=== PATIENT | female | born 1950 | race Caucasian/White ===

== ENCOUNTER 2018-06-08 10:22 | Emergency (ER) | payer MEDICARE, OTHER, SELFPAY ==
[2018-06-08] VITALS (8 sets, daily range): BP systolic 118–134; BP diastolic 59–71; PULSE 61–79; RESP 12–17; TEMP 36.6; O2SAT 93–100
--- NOTE | 2018-06-08 10:44 | DI.RAD.S_ITS ---
PROCEDURE: XR CHEST 1V INDICATIONS: chest pain TECHNIQUE: One view of the chest was acquired. COMPARISON: [facility], CHEST 1 VIEW, 03/17/2016, 22:11. [facility], CHEST 2 VIEW, 09/08/2014, 21:29. [facility], CHEST 2 VIEW, 09/07/2014, 12:04. [facility], CHEST 1 VIEW, 04/21/2007, 20:05. FINDINGS: Surgical changes and devices: None. Lungs and pleura: No pleural effusions or pneumothorax. Bilateral perihilar reticular opacities are unchanged from prior exam. Mediastinum: Mediastinal contours appear normal. Heart size is normal. Bones and chest wall: No suspicious bony lesions. Overlying soft tissues appear unremarkable. IMPRESSION: No acute cardiopulmonary disease. Dictated by: Oliverio Bustamante M.D. on 06/08/2018 at 12:11 Approved by: Oliverio Bustamante M.D. on 06/08/2018 at 12:14
[2018-06-08 10:57] LABS: Add Manual Diff / Slide Review NO; Eosinophils Percent Auto 1.1 % (2-4); Hematocrit 40.8 % (36-46); Hemoglobin 13.7 g/dL (12.0-16.0); Mean Corpuscular HGB Conc 33.5 % (30-36); Mean Corpuscular Hemoglobin 33.4 PG (26-34); Mean Corpuscular Volume 99.7 fL (80-100); Monocytes Percent Auto 8.8 % (3-14); Neutrophils Absolute Auto 2800 /uL (3000-5900); Neutrophils Percent Auto 52.1 % (50-75); Platelet Count 320 X10^3/uL (150-400); Red Blood Cell Count 4.09 X10^6/uL (4.0-5.2); White Blood Cell Count 5.4 X10^3/uL (4.5-11.0)
[2018-06-08 11:07] LABS: Alanine Aminotransferase 43 IU/L (9-52); Albumin 4.1 g/dL (3.5-5.0); Albumin Globulin Ratio 1.4 (1.0-2.8); Alkaline Phosphatase 71 U/L (38-126); Aspartate Aminotransferase 44 IU/L (14-36); BUN Creatinine Ratio 21.7 (6-22); Bilirubin Total 0.4 mg/dL (0.2-1.3); Blood Urea Nitrogen 13 mg/dL (7-17); Calcium 9.6 mg/dL (8.4-10.2); Carbon Dioxide 33 mmol/L (22-32); Chloride 102 mmol/L (98-107); Creatine Kinase 91 U/L (30-135); Estimated Glomerular Filt Rate > 60.0 mL/min (>60); Globulin 2.9 g/dL (1.7-4.1); Glucose 94 mg/dL (80-110); HEMOLYSIS < 15 (0-50); Lipase 42 U/L (23-300); Potassium 4.2 mmol/L (3.4-5.1); Sodium 142 mmol/L (137-145)
[2018-06-08] MEDS: ACETAMINOPHEN 325 MG TABLET 650 MG PO (11:15)
[2018-06-08] MEDS: SODIUM CHLORIDE 0.9% 1,000 ML 150 ML IV (11:19)
[2018-06-08 11:20] LABS: Troponin I < 0.012 ng/mL (0.01-0.034)
--- NOTE | 2018-06-08 11:21 | DI.CT.S_ITS ---
PROCEDURE: CT ANGIO HEAD AND NECK INDICATIONS: headache, pain w/ neuro symptoms. Right arm numbness, weakness. TECHNIQUE: Pre-contrast 4.5 mm thick sections acquired from the foramen magnum to the vertex. After the administration of intravenous contrast, 1 mm thick sections acquired from the aortic arch through the [place]. Post-contrast 4.5 mm thick sections then re-acquired from the foramen magnum to the vertex. 3-dimensional qudnbsa-rwmeytjge-vdndelbklp (MIP) and/or volume rendering reformats were acquired of the central intracranial vasculature and neck separately. COMPARISON: [facility], CT, HEAD WITHOUT CONTRAST, 04/10/2013, 13:59. FINDINGS: Image quality: Excellent. BRAIN: CSF spaces: Ventricles are normal in size and shape. Basal cisterns are patent. No extra-axial fluid collections. Brain: No midline shift. No intracranial bleeds or masses. No acute infarct. Skull and face: Calvarium and facial bones appear intact, without suspicious lesions. Orbits appear normal. Sinuses: Sinuses and mastoids are clear. HEAD CT ANGIOGRAPHY: There is calcification of the bilateral cavernous internal carotid arteries. No dissection, occlusion, or stenosis of the intracranial arteries. NECK CT ANGIOGRAPHY: There is calcification of the bilateral carotid artery bifurcations. No dissection, occlusion, stenosis of the great arteries of the neck. Soft tissues: There is a 1.0 cm hypoattenuating nodule in the right thyroid lobe with internal calcification. Bones: Moderate multilevel degenerative changes of the cervical spine with straightening of the normal cervical lordosis. IMPRESSION: #1. No acute intracranial abnormality. #2. No dissection or occlusion of the great arteries of the neck or intracranial arteries identified. #3. Moderate multilevel degenerative changes of the cervical spine. #4. 1.0 cm right thyroid lobe nodule. Recommend followup outpatient thyroid ultrasound for further evaluation. Any quantitative measurements of stenosis were performed using NASCET criteria. Dictated by: Oliverio Bustamante M.D. 06/08/2018 at 13:12 Approved by: Oliverio Bustamante M.D. on 06/08/2018 at 13:27
--- NOTE | 2018-06-08 11:51 | ED_ITS ---
HPI - Chest Pain General Chief Complaint: Chest Pain Stated Complaint: jaw pain, right breast pain, blurry vision Time Seen by Provider: 06/08/18 10:27 Source: patient Mode of arrival: ambulatory Limitations: no limitations History of Present Illness HPI narrative: 68-year-old female presents to the emergency department with multiple symptoms and presents to emergency at the request of the provider at the walk-in clinic for further and more complete evaluation. On waking this morning at about 7:30 a.m. patient noticed a right-sided headache and some sensory change in the right side of her face. She states she may have a slight change in her right eye vision but certainly no visual field cuts, floaters or other. Additionally the patient has some right-sided chest pain which she attributes to her breast. She denies provocation, palliation or radiation of this pain in her breast. She states it does not feel like pleurisy which she has had in the past. Finally the patient has some numbness, tingling and weakness in her right upper extremity. She denies any recent injury or medication change. Related Data Home Medications Medication Instructions Recorded Confirmed Loratadine (Claritin) 10 mg PO Q AM #0 04/21/06/08/18 metronidazole 1 nelson TOPICAL #0 02/06/17 06/08/18 Previous Rx's Medication Instructions Recorded acyclovir 400 mg PO TID PRN #30 tab 10/01/17 levothyroxine [Synthroid] 150 mcg PO QAM #90 tab 11/07/17 nortriptyline 10 mg PO BID #180 cap 11/07/17 triamcinolone acetonide 1 nelson TOPICAL BID #15 gm 01/04/18 estradiol 1 mg tablet 1 mg PO QDAY #90 tab 04/16/18 hydrocodone 5 mg-acetaminophen 325 1 tab PO Q6HP PRN #30 tab 04/16/18 mg tablet pseudoephedrine ER 240 mg 240 mg PO DAILY PRN #90 tab 04/16/18 tablet,extended release 24 hr sulfasalazine 500 mg tablet 1,500 mg PO TID #810 tab 04/16/18 Allergies Allergy/AdvReac Type Severity Reaction Status Date / Time fentanyl Allergy Unknown HIVES Verified 06/08/18 10:06 clarithromycin [From BIAXIN] AdvReac Unknown DIAHRREA Verified 06/08/18 10:06 ketorolac AdvReac Unknown STOMACH Verified 06/08/18 10:06 BLEEDING Review of Systems Review of Systems All systems reviewed & are unremarkable except as noted in HPI and below Constitutional Denies chills, Denies fever(s), Denies lethargy and Reports weakness Eyes Denies change in vision, Denies eye discharge, Denies irritation, Denies loss of vision and Reports other visual disturbances ENT Ears, Nose, Mouth, and Throat: Denies change in voice, Denies neck pain and Denies sore throat Cardiovascular Reports chest pain, Denies irregular heart rhythm, Denies lightheadedness, Denies palpitations, Denies dyspnea, Denies dyspnea on exertion and Denies orthopnea Respiratory Denies cough, Denies dyspnea, Denies dyspnea on exertion and Denies wheezing Gastrointestinal Gastrointestinal: Denies abdominal pain, Denies change in bowel habits, Denies diarrhea, Denies nausea and Denies vomiting Genitourinary Denies hematuria, Denies flank pain, Denies urinary incontinence and Denies urinary urgency Musculoskeletal Denies neck pain and Reports tingling Integumentary/Breasts Denies pruritus, Denies erythema, Denies rash and Denies wounds Neurologic Denies confusion, Denies loss of vision, Reports tingling and Reports weakness Psychiatric Denies anxiety, Denies confusion, Denies depression, Denies homicidal ideation and Denies suicidal ideation Endocrine Denies palpitations Hematologic/Lymphatic Denies easy bruising Allergic/Immunologic Denies wheezing [facility] Medical History Ankle pain (Chronic ~2001) Chronic back pain (Chronic ~2012) GI bleeding (Chronic ~2006) Hearing deficit (Chronic ~1997) Herpes simplex virus (HSV) infection (Chronic ~1998) History of frequent headaches (Chronic ~1967) Hypothyroidism (Chronic ~2001) Rosacea (Chronic ~2012) Seasonal allergies (Chronic ~1999) Spinal stenosis (Chronic ~1989) Tinnitus (Chronic ~2007) Ulcerative colitis (Chronic ~1976) Urinary incontinence (Chronic ~2007) Abnormal Pap smear of cervix (Resolved) Acne (Resolved) Chickenpox (Resolved ~1954) Measles (Resolved ~1955) Migraines (Resolved) Mumps (Resolved ~1955) Surgical procedure planned (Resolved ~2009) Surgical History Status post surgical manipulation of ankle joint (Resolved ~2001) Status post surgical manipulation of ankle joint (Resolved ~2009) Anesthesia (Inactive) History of hip replacement (~2002) History of hip replacement (~2002) Status post arthroscopy (~1987) Status post hysterectomy (~1993) Status post rotator cuff repair (~2006) Status post tonsillectomy and adenoidectomy (~1966) Status post tubal ligation (~1983) Family History Brother Age: 64 Essential hypertension Father Heart disease Essential hypertension High cholesterol Grandmother Parkinson's disease Mother Essential hypertension Grandfather No problems noted. Grandfather No problems noted. Social History Smoking Status: Never smoker alcohol intake: current Exam Initial Vital Signs Initial Vital Signs: Vital Signs Temperature 97.8 F 06/08/18 10:38 Pulse Rate 79 06/08/18 10:38 Respiratory Rate 14 06/08/18 10:38 Blood Pressure 134/70 H 06/08/18 10:38 Pulse Oximetry 98 06/08/18 10:38 Const General: cooperative, well developed and in distress Nutritional Appearance: well nourished Orientation: alert, awake, oriented x3 and not confused [facility] Head: normocephalic and atraumatic Ears: external ears normal and TM's normal bilaterally Nose: external nose normal and No nasal discharge Face and sinus: sinuses nontender, face symmetric, no sinus tenderness and No dry mucous membranes Mouth: oral mucosae normal and moist mucous membranes Teeth and gingiva: dentition normal Throat: tonsils normal and uvula midline Eyes General: appearance normal, both eyes and all related structures Eyelids: eyelids normal Conjunctivae: conjunctivae normal Sclera: sclerae normal Pupils: PERRL EOM: EOM intact bilaterally Neck Neck: normal visual inspection, trachea midline, No lymphadenopathy, No midline deformity and No JVD Lymphatic: No lymphedema Chest Chest: normal inspection of the chest Resp Effort & Inspection: normal respiratory effort, able to speak in complete sentences, no respiratory distress and no use of accessory muscles Auscultation: clear to auscultation bilaterally, no rales, no rhonchi and no wheezes GI Inspection: non-distended Palpation: soft, no hepatosplenomegaly, No guarding, No pulsatile mass and No tender Auscultation: normal bowel sounds Back/Spine/Pelvis Back: No CVA tenderness Cervical Spine: cervical ROM normal and No pain with cervical ROM Thoracic/Lumbar Spine: thoracic and lumbar spine normal to inspection Skin General: no rashes or lesions noted, No jaundice and No petechiae Neuro General: alert, awake and oriented x3 Extrem General: full ROM, no clubbing, cyanosis or edema, no pedal edema and no calf tenderness Psych Appearance: well kempt Mental Status: mental status grossly normal Attitude: cooperative Thought Content: normal and suicidality Judgment: judgment good Scores HEART Score Heart Score history: Slightly Suspicious Heart Score EKG: Normal Heart Score Age: > or = 65 years old Heart Score risk factors: No known risk factors Heart Score troponin: < or = to normal limit Heart Score Total: 2 NIH Stroke Scale Level of Conciousness: Alert, keenly responsive Ask month/age: Answers both questions correctly. Open/close eyes, close hand: Performs both tasks correctly Best gaze horizontal: Normal Visual whitehead: No visual loss Facial palsy: Normal symetrical movement Left arm drift: No drift for full 10 sec Right arm drift: No drift for full 10 sec Left leg drift: No drift for full 10 sec Right leg drift: No drift for full 10 sec Limb ataxia: Absent Sensory on face/arms/legs: Mild to moderate sensory loss, can tell touch (R face , R arm. Both tingly) Best language: No aphasia, normal Dysarthria: Normal Extinction or inattention: No abnormality Total NIH Stroke scale score: 1 Course Orders Ordered: ED Orders 06/08/18 10:35 EKG-12 Lead Stat 06/08/18 10:40 Complete Blood Count AUTO DIFF Stat Comprehensive Metabolic Panel Stat Lipase Stat Troponin & CK Cardiac Panel Stat 06/08/18 10:44 XR chest 1V Stat 06/08/18 11:21 CT angio head and neck Stat 06/08/18 13:05 Troponin I Stat Discontinued Medications Acetaminophen (Tylenol) 650 mg PO NOW ONE Stop: 06/08/18 11:22 Last Admin: 06/08/18 11:15 Dose: 650 mg Sodium Chloride (Normal Saline 0.9%) 1,000 mls @ 150 mls/hr IV CONT TAVON Last Admin: 06/08/18 11:19 Dose: 150 mls/hr Vital Signs - 8 hr 06/08/18 10:38 06/08/18 11:08 06/08/18 12:06 Temperature 97.8 F Pulse Rate 79 74 62 Respiratory Rate 14 17 14 Blood Pressure 134/70 H Blood Pressure [Left Arm] 118/66 130/59 H Pulse Oximetry 98 100 93 06/08/18 12:37 06/08/18 13:21 06/08/18 13:39 Temperature Pulse Rate 61 77 76 Respiratory Rate 12 13 15 Blood Pressure Blood Pressure [Left Arm] 127/71 H 125/65 H 125/65 H Pulse Oximetry 97 96 96 06/08/18 14:10 06/08/18 14:34 Temperature Pulse Rate 78 75 Respiratory Rate 12 13 Blood Pressure 127/63 H Blood Pressure [Left Arm] 127/63 H Pulse Oximetry 97 96 MDM - Chest Pain Differential Diagnosis Likely stable angina, unstable angina pectoris, atypical chest pain, st elevation myocardial infarction, costochondritis, chest pain and biliary colic Medical Records Data Attestation: I reviewed the patient's medical records. Lab Data Attestation: I reviewed the patient's lab results. Result diagrams: 06/08/18 10:40 06/08/18 10:40 Lab Results 06/08/18 06/08/18 06/08/18 Range/Units 10:40 10:40 13:05 WBC 5.4 (4.5-11.0) X10^3/uL RBC 4.09 (4.0-5.2) X10^6/uL Hgb 13.7 (12.0-16.0) g/dL Hct 40.8 (36-46) % MCV 99.7 (80-100) fL MCH 33.4 (26-34) PG MCHC 33.5 (30-36) % RDW 13.0 (11.6-14.8) % Plt Count 320 (150-400) X10^3/uL Neut % (Auto) 52.1 (50-75) % Lymph % (Auto) 37.0 (25-40) % Eddy % (Auto) 8.8 (3-14) % Eos % (Auto) 1.1 L (2-4) % Baso % (Auto) 1.0 (0-2) % Neut # (Auto) 2800 L (5886-2482) /uL Sodium 142 (137-145) mmol/L Potassium 4.2 (3.4-5.1) mmol/L Chloride 102 (98-107) mmol/L Carbon Dioxide 33 H (22-32) mmol/L BUN 13 (7-17) mg/dL Creatinine 0.60 (0.52-1.04) mg/dL Estimated GFR > 60.0 (>60) mL/min BUN/Creatinine Ratio 21.7 (6-22) Glucose 94 (80-110) mg/dL Calcium 9.6 (8.4-10.2) mg/dL Total Bilirubin 0.4 (0.2-1.3) mg/dL AST 44 H (14-36) IU/L ALT 43 (9-52) IU/L Alkaline Phosphatase 71 (38-126) U/L Total Creatine Kinase 91 (30-135) U/L Troponin I < 0.012 < 0.012 (0.01-0.034) ng/mL Total Protein 7.0 (6.3-8.2) g/dL Albumin 4.1 (3.5-5.0) g/dL Globulin 2.9 (1.7-4.1) g/dL Albumin/Globulin Ratio 1.4 (1.0-2.8) Lipase 42 (23-300) U/L Imaging Data Head/Neck Angio: Radiologist's impression: PROCEDURE: CT ANGIO HEAD AND NECK INDICATIONS: headache, pain w/ neuro symptoms. Right arm numbness, weakness. TECHNIQUE: Pre-contrast 4.5 mm thick sections acquired from the foramen magnum to the vertex. After the administration of intravenous contrast, 1 mm thick sections acquired from the aortic arch through the [place] of [place]. Post-contrast 4.5 mm thick sections then re- acquired from the foramen magnum to the vertex. 3-dimensional maximum-intensity- projection (MIP) and/or volume rendering reformats were acquired of the central intracranial vasculature and neck separately. COMPARISON: [facility], CT, HEAD WITHOUT CONTRAST, 04/10/2013, 13:59. FINDINGS: Image quality: Excellent. BRAIN: CSF spaces: Ventricles are normal in size and shape. Basal cisterns are patent. No extra-axial fluid collections. Brain: No midline shift. No intracranial bleeds or masses. No acute infarct. Skull and face: Calvarium and facial bones appear intact, without suspicious lesions. Orbits appear normal. Sinuses: Sinuses and mastoids are clear. HEAD CT ANGIOGRAPHY: There is calcification of the bilateral cavernous internal carotid arteries. No dissection, occlusion, or stenosis of the intracranial arteries. NECK CT ANGIOGRAPHY: There is calcification of the bilateral carotid artery bifurcations. No dissection, occlusion, stenosis of the great arteries of the neck. Soft tissues: There is a 1.0 cm hypoattenuating nodule in the right thyroid lobe with internal calcification. Bones: Moderate multilevel degenerative changes of the cervical spine with straightening of the normal cervical lordosis. IMPRESSION: #1. No acute intracranial abnormality. #2. No dissection or occlusion of the great arteries of the neck or intracranial arteries identified. #3. Moderate multilevel degenerative changes of the cervical spine. #4. 1.0 cm right thyroid lobe nodule. Recommend followup outpatient thyroid ultrasound for further evaluation. Any quantitative measurements of stenosis were performed using NASCET criteria. Dictated by: Oliverio Bustamante M.D. 06/08/2018 at 13:12 Approved by: Oliverio Bustamante M.D. on 06/08/2018 at 13:27 ECG Data Attestation: I personally reviewed and interpreted this ECG as follows: Interpretation: NSR without ectopy or ischemia. RBBB consistent with old EKG from 2015, no change. MDM Narrative Medical decision making narrative: Patient has atypical and rather nondescript symptoms including neurologic symptoms as well as pain in a rather broad distribution. Stroke is considered as an etiology of her numbness and tingling but is unlikely in the setting of pain in her head along with chest pain. Cardiac ischemia considered as an etiology of her chest pain with radiation to right arm but thought less likely given normal EKG, labs, lack of other consistent symptoms, and the presence of headache with facial numbness. Presence of pain in the setting of neurologic symptoms raises the suspicion of a vascular abnormality such as dissection, hence the angiography Discharge Plan Departure Patient Disposition: Home, Self-Care Clinical Impression: Atypical chest pain Discharge Date/Time: 06/08/18 14:34 Interventions: ED Discharge Assessment Last Done: 06/08/18 14:34 Instructions: DI for Atypical Chest Pain Activity Restrictions/Additional Instructions: *You have been diagnosed with [ atypical chest pain, headache ] *What to do: * continue to tyrell medications as directed *Follow up with your primary care provider in 2-3 days, call for an appointment. Let them know you were seen in the Emergency Department and that we ask that you be seen in follow up *Return to ER if you should have any new, worsening or concerning symptoms , such as [worsening chest pain, shortness of breath, fever greater than 101 F, other bothersome symptoms ] Prescriptions: No Action Loratadine (Claritin) 10 mg PO Q AM Qty: 0 RF: 0 metronidazole 0.75 % cream 1 nelson Topical Qty: 0 RF: 0 acyclovir 400 MG tablet 400 mg PO TID PRNQty: 30 RF: 3 nortriptyline 10 MG capsule 10 mg PO BID Qty: 180 RF: 3 levothyroxine [Synthroid] 150 MCG tablet 150 mcg PO QAM Qty: 90 RF: 3 triamcinolone acetonide 0.1 % ointment 1 nelson Topical BID Qty: 15 RF: 0 estradiol 1 mg tablet 1 mg PO QDAY Qty: 90 RF: 3 sulfasalazine [Azulfidine] 500 mg tablet 1,500 mg PO TID Qty: 810 RF: 3 hydrocodone-acetaminophen 5-325 mg tablet 1 tab PO Q6HP PRN (Reason: pain) Qty: 30 RF: 0 pseudoephedrine HCl 240 mg tablet extended release 24 hr 240 mg PO DAILY PRN (Reason: nasal congestion) Qty: 90 RF: 1 Referrals: Nilda Salmeron DO [Primary Care Provider] -
[2018-06-08 13:39] LABS: Troponin I < 0.012 ng/mL (0.01-0.034)
--- NOTE | 2018-07-03 10:35 | PC.NURSE ---
late entry, correction on IV NS stop time, should be 06/08/2018 not 06/09/2018 per Marsha MATTSON
== END 2018-06-08 14:34 | disposition home or self-care (01) ==
PROVIDERS: Emergency Provider Emergency Medicine; Family Provider Family Medicine; PCP Family Medicine
DX: R07.89 Other chest pain (principal)
CPT/HCPCS: 36415; 70496; 70498; 71045; 80053; 81003; 82550; 82553; 83690; 84484; 85025; 93005; 93010; 96360; 99284; 99285; Q9967

== ENCOUNTER → 2018-06-18 15:37 | Outpatient (CLI) | payer MEDICARE, OTHER, SELFPAY ==
[2018-06-18 16:36] LABS: Free T3, Triiodothyronine Free 2.79 pg/mL (2.77-5.27); Free T4, Direct Thyroxine 1.66 ng/dL (0.78-2.19)
== END ==
PROVIDERS: Family Provider Family Medicine; PCP Family Medicine; Visit Provider Family Medicine
DX: E03.9 Hypothyroidism, unspecified (principal)
CPT/HCPCS: 36415; 84439; 84443; 84481

== ENCOUNTER → 2018-07-08 08:05 | Outpatient (CLI) | payer MEDICARE, OTHER, SELFPAY ==
--- NOTE | 2018-07-08 08:08 | DI.US.S_ITS ---
PROCEDURE: US THYROID INDICATIONS: NODULE TECHNIQUE: Real-time scanning was performed of the thyroid gland, with image documentation. COMPARISON: [facility], CT, CT ANGIO HEAD AND NECK, 06/08/2018, 11:38. FINDINGS: Right: Thyroid lobe measures 4.0 x 1.4 x 1.0 cm, and is homogeneous in echotexture. Left: Thyroid lobe measures 3.5 x 1.0 x 1.3 cm, and is homogenous in echotexture. Isthmus: 1.7 mm thick. Nodule number: 1 Location: Left mid Size: 0.6 x 0.4 x 0.4 cm. Composition: Predominantly cystic Echogenicity: Anechoic Shape: wider than tall. Margins: Smooth Echogenic foci: None Total points: 0 ACR TI-RADS category: Benign Nodule number: 2 Location: Right mid Size: 1.5 x 0.7 x 0.8 cm. Composition: Solid Echogenicity: Hypoechoic Shape: wider than tall. Margins: Fine Echogenic foci: Punctate internal echogenic foci. Total points: 7 ACR TI-RADS category: Moderately suspicious IMPRESSION: Highly suspicious right thyroid nodule. Recommend sonographically directed fine needle aspiration. ACR TI-RADS definitions and recommendations: TI-RADS 1 (benign): 0 points. FNA not needed. TI-RADS 2 (not suspicious): 2 points. FNA not needed. TI-RADS 3 (mildly suspicious): 3 points. * FNA if 2.5 cm or larger, follow up if 1.5 cm or larger (at 1, 3, and 5 years). TI-RADS 4 (moderately suspicious): 4-6 points. * FNA if 1.5 cm or larger, follow up if 1 cm or larger (at 1, 2, 3, and 5 years). TI-RADS 5 (highly suspicious): 7 points or more. * FNA if 1 cm or larger, follow up if 0.5 cm or larger (every year for 5 years). Dictated by: Chicho QUINTERO Interpreted: Javan Dale MD on 07/08/2018 at 9:04 Approved by: Javan Dale M.D. on 07/08/2018 at 12:15
== END ==
PROVIDERS: Family Provider Family Medicine; PCP Family Medicine; Visit Provider Family Medicine
DX: E04.2 Nontoxic multinodular goiter (principal); E03.9 Hypothyroidism, unspecified
CPT/HCPCS: 76536

== ENCOUNTER → 2018-07-28 13:35 | Outpatient (CLI) | payer MEDICARE, OTHER, SELFPAY ==
--- NOTE | 2018-07-28 | PATH_ITS ---
Note [facility] Accession Number: [id number] TESTS RESULT FLAG UNITS REF RANGE LAB Clinician Provided Cytology Information No. of containers..01 ThinPrep Vial No. of containers..08 Previously Prepared Cytology Slide RIGHT THYROID DIAGNOSIS: 02 RIGHT THYROID BENIGN - NEGATIVE FOR MALIGNANT CELLS. [place] CATEGORY II. SPECIMEN CONSISTS OF BENIGN FOLLICULAR CELLS, HEMOSIDERIN-LADEN MACROPHAGES, COLLOID, AND BLOOD. THIS PATTERN IS CONSISTENT WITH A COLLOID NODULE. Pathologist ICD10: 02 E04.1 02 Jeromy Rivera MD, PhD, Pathologist NPI- [id number] oJsh Dumont, Salvage Engineering Technician ([facility]) 01 30 CC, COLORLESS, CLEAR RECEIVED: 4 ALCOHOL FIXED AND 4 QUICL STAINED SLIDES. /VDU FLAG LEGEND: L-Low Normal,H-High Normal,LL-Alert Low,HH-Alert High <-Panic Low,>-Panic High,A-Abnormal,AA-Critical Abnormal Performed at: 01 =Z [facility] [address], [place] [address] Fabricio Lyle MD, 02 [facility] [address] [place] [id number] Iker Larson MD, Performed at: 01 [facility] [address], [place], [place] [id number] MD Fabricio Lyle MD Phone: [phone]
--- NOTE | 2018-07-28 13:36 | DI.US.S_ITS ---
PROCEDURE: US FINE NEEDLE ASPIRATION INDICATIONS: RIGHT THYROID NODULE TECHNIQUE: The indications, alternatives, benefits, risks, and complications of the procedure were explained to the patient. Written informed consent was obtained and placed in the chart. The area of interest was examined sonographically and a site was chosen for ultrasound guided percutaneous sampling. The skin was prepared and draped in the usual fashion, and anesthetized with 1% lidocaine infiltrated from the skin down to the lesion. Multiple passes were then performed, with contents emptied into an appropriate pathology specimen container. A bandage was applied to the area of access at completion of the study. COMPARISON: None. FINDINGS: Location(s) of lesion(s) sampled: Right thyroid lobe. [place]: 25 gauge hypodermic needles. Number of passes: 5 Medications: 1% lidocaine for local anaesthesia. Complications: None. IMPRESSION: Successful ultrasound-guided right thyroid lobe nodule fine needle aspiration, with cytology results pending. Dictated by: Chandler Lew M.D. on 07/28/2018 at 15:07 Approved by: Chandler Lew M.D. on 07/28/2018 at 15:09
== END ==
PROVIDERS: PCP Family Medicine; Visit Provider Family Medicine
DX: E04.1 Nontoxic single thyroid nodule (principal)
CPT/HCPCS: 10022; 76942

== ENCOUNTER 2018-09-13 16:39 | Emergency (ER) | payer MEDICARE, OTHER, SELFPAY ==
[2018-09-13 16:49] VITALS: BP 131/79; PULSE 93; RESP 15; TEMP 36.3; O2SAT 97; BMI 28.3
--- NOTE | 2018-09-13 17:05 | ED.FALL ---
HPI - Fall <Leila Saenz PA-C - Last Filed: 09/13/18 21:17> General Chief Complaint: Fall Stated Complaint: GLF, hit head on a fence Time Seen by Provider: 09/13/18 17:05 Source: patient Mode of arrival: ambulatory Limitations: no limitations History of Present Illness HPI Narrative: This 68-year-old female tripped over a parking lot bumper that was near a fence a short time prior to arrival. She states that her knee went over the bumper and she the ground 1st with her knees, then outstretched right hand, and hit her right frontal area on the fence. She denies any LOC, nausea or vomiting. She states she has a mild headache/soreness on the right side. Initially she states no vision change, but states that later she has noticed that her right-sided vision seems a little bit different though she is able to read. She states it feels a little bit ?puffy? on that side. She denies any neck pain. She states that her right hand and wrist are a bit sore but no difficulty moving them. She has some ongoing numbness in her right thumb and pinky finger but she has been in physical therapy for, no acute changes. She states that her right knee is more sore than her left, however she was able to get up on her own and walk. She states that she really did not think she needed to come in but came at the insistence of her friends. Related Data Home Medications Medication Instructions Recorded Confirmed Loratadine (Claritin) 10 mg PO Q AM #0 04/21/07 08/04/18 metronidazole 1 nelson TOPICAL #0 02/06/17 08/04/18 Previous Rx's Medication Instructions Recorded acyclovir 400 mg PO TID PRN #30 tab 10/01/17 levothyroxine [Synthroid] 150 mcg PO QAM #90 tab 11/07/17 nortriptyline 10 mg PO BID #180 cap 11/07/17 triamcinolone acetonide 1 nelson TOPICAL BID #15 gm 01/04/18 estradiol 1 mg tablet 1 mg PO QDAY #90 tab 04/16/18 hydrocodone 5 mg-acetaminophen 325 1 tab PO Q6HP PRN #30 tab 04/16/18 mg tablet pseudoephedrine ER 240 mg 240 mg PO DAILY PRN #90 tab 04/16/18 tablet,extended release 24 hr sulfasalazine 500 mg tablet 1,500 mg PO TID #810 tab 04/16/18 methocarbamol 500 mg tablet 500 mg PO BEDTIME #30 tab 06/11/18 Allergies Allergy/AdvReac Type Severity Reaction Status Date / Time fentanyl Allergy Unknown HIVES Verified 09/13/18 16:49 clarithromycin [From BIAXIN] AdvReac Unknown DIAHRREA Verified 09/13/18 16:49 ketorolac AdvReac Unknown STOMACH Verified 09/13/18 16:49 BLEEDING Review of Systems <Leila Saenz PA-C - Last Filed: 09/13/18 21:17> Review of Systems All systems reviewed & are unremarkable except as noted in HPI and below Exam <Leila Saenz PA-C - Last Filed: 09/13/18 21:17> Narrative Exam Narrative: GENERAL APPEARANCE: Patient sitting comfortably, in no distress. HEENT: No abrasions, ecchymoses, or hematoma noted on the scalp. Mild tenderness over the right frontal scalp. PERRL, EOMI, normal ear canals, nasal and oral mucosa without evidence of bleed. Uncorrected vision 20/30 OD, 20/40 OS, 20/30 OU NECK: Supple LUNGS: Clear to auscultation bilaterally. HEART: Rate and rhythm regular without murmur, normal S1 and S2, no S3 or S4. NEUROLOGIC: Alert and oriented, normal speech and coordination. MUSCULOSKELETAL: No point tenderness over the cervical spine. Full Csp AROM. No point tenderness over the right distal forearm, wrist, hand or fingers. Joints are nodular. Full range of motion and social work administrator strength intact. Right knee mild joint line and patellar tenderness with mild effusion. Reduced flexion secondary to tenderness. Left knee no effusion or tenderness to palpation. Full range of motion without tenderness. DERMATOLOGIC: Superficial abrasions noted on both central patellar areas, none elsewhere, no ecchymoses noted Initial Vital Signs Initial Vital Signs: Vital Signs Temperature 97.4 F L 09/13/18 16:49 Pulse Rate 93 H 09/13/18 16:49 Respiratory Rate 15 09/13/18 16:49 Blood Pressure 131/79 09/13/18 16:49 Pulse Oximetry 97 09/13/18 16:49 <Tati Salgado DO - Last Filed: 09/14/18 00:17> Initial Vital Signs Initial Vital Signs: Vital Signs Temperature 97.4 F L 09/13/18 16:49 Pulse Rate 93 H 09/13/18 16:49 Respiratory Rate 15 09/13/18 16:49 Blood Pressure 131/79 09/13/18 16:49 Pulse Oximetry 97 09/13/18 16:49 Course <Leila Saenz PA-C - Last Filed: 09/13/18 21:17> Additional Information: Patient initially stated she had not wanted to come here and pain was not severe enough that she would take Tylenol at home as far as her headache, however she did have some feeling of vague vision disturbance (vision checked uncorrected), so we did proceed with head CT which did not show any acute findings. Knee x-ray showed osteoarthritis with mild effusion, likely exacerbation due to confusion. She agreed to return if any acutely worsening symptoms, otherwise follow up with PCP as sx are consistent with mild concussion. Orders Ordered: ED Orders 09/13/18 17:21 CT head/brain wo con Stat XR knee RT 3V Stat Discontinued Medications Acetaminophen (Tylenol) 650 mg PO NOW ONE Stop: 09/13/18 17:27 Last Admin: 09/13/18 17:46 Dose: 650 mg Vital Signs - 8 hr 09/13/18 16:49 09/13/18 18:44 Temperature 97.4 F L Pulse Rate 93 H 88 Respiratory Rate 15 14 Blood Pressure 131/79 Blood Pressure [Left Arm] 118/57 L Pulse Oximetry 97 97 <Tati Salgado DO - Last Filed: 09/14/18 00:17> Orders Ordered: ED Orders 09/13/18 17:21 CT head/brain wo con Stat XR knee RT 3V Stat Discontinued Medications Acetaminophen (Tylenol) 650 mg PO NOW ONE Stop: 09/13/18 17:27 Last Admin: 09/13/18 17:46 Dose: 650 mg Vital Signs - 8 hr 09/13/18 16:49 09/13/18 18:44 Temperature 97.4 F L Pulse Rate 93 H 88 Respiratory Rate 15 14 Blood Pressure 131/79 Blood Pressure [Left Arm] 118/57 L Pulse Oximetry 97 97 MDM - Fall <Leila Saenz PA-C - Last Filed: 09/13/18 21:17> Imaging Data CT scan - head: Radiologist's impression: Chart Viewer Diagnostics DATE TYPE STATUS AUTHOR Hx 09/13/18 17:21 SheelaForest goetzblade 07/28/18 13:36 Chandler Lew 07/08/18 08:08 Javan Dale 06/08/18 11:21 Oliverio Bustamante 06/08/18 10:44 Oliverio Bustamante Sharon L 68, F0 1950 [facility] ER, ED - Main ED: R04 172.72cm 84.368kg BSA: 1.98m? BMI: 28.3kg/m? Fall Search Chart NF - Not included in interaction checking fentanyl HIVES clarithromycin (From BIAXIN) DIAHRREA ketorolac STOMACH BLEEDING ONSET 05/18/04 05/18/04 05/18/04 02/06/17 06/20/17 06/20/17 12/16/17 Today 16:49 [place] [address] CT Scan Report Signed Patient: Karley Damico LMR#: [id number] : 1950Acct:[id number] Age/Sex: 68 / FDate of Service: 09/13/18 Loc: ED Accession Number: [id number] Procedure: CT head/brain wo con Ordering Provider: Leila Saenz P.A-C PROCEDURE: CT HEAD/BRAIN WO CON INDICATIONS: fall, Right frontal pain, vision change TECHNIQUE: Noncontrast 4.5 mm thick angled axial sections acquired from the foramen magnum to the vertex, with coronal and sagittal reformats. For radiation dose reduction, the following was used: automated exposure control, adjustment of mA and/or kV according to patient size. COMPARISON: [facility], CT, HEAD WITHOUT CONTRAST, 04/10/2013, 13:59. [facility], CT, CT ANGIO HEAD AND NECK, 06/08/2018, 11:38. FINDINGS: Image quality: Excellent. CSF spaces: Basal cisterns are patent. No extra-axial fluid collections. Ventricles are normal in size and shape. Brain: No midline shift. No intracranial masses or hemorrhage. Mild cerebral volume loss. Layne-white matter interface is normal. Skull and face: Calvarium and visualized facial bones are intact, without suspicious lesions. Sinuses: Visualized sinuses and mastoids are clear. IMPRESSION: 1. No acute intracranial abnormalities. Dictated by: Dimitris Coker M.D. on 09/13/2018 at 18:02 Approved by: Dimitris Coker M.D. on 09/13/2018 at 18:04 knee: Radiologist's impression: [address] [address] XRay Report Signed Patient: Karley Damico LMR#: [id number] : 1950Acct:[id number] Age/Sex: 68 / FDate of Service: 09/13/18 Loc: ED Accession Number: [id number] Procedure: XR knee RT 3V Ordering Provider: Leila Saenz P.A-C PROCEDURE: XR KNEE RT 3V INDICATIONS: fall on knee, joint line and patellar pain TECHNIQUE: 3 views of the knee were acquired. COMPARISON: [facility], , KNEE 3V RIGHT, 04/18/2017, 11:25. FINDINGS: Bones: No fractures or dislocations. No suspicious bony lesions. Moderate to severe tricompartmental knee joint degeneration. Soft tissues: Small joint effusion. No suspicious soft tissue calcifications. IMPRESSION: 1. Moderate to severe degenerative joint disease. 2. Small knee joint effusion. Dictated by: Dimitris Coker M.D. on 09/13/2018 at 18:04 Approved by: Dimitris Coker M.D. on 09/13/2018 at 18:14 Discharge Plan Departure Patient Disposition: Home Clinical Impression: Contusion of multiple sites, Concussion Discharge Date/Time: 09/13/18 19:05 Interventions: ED Discharge Assessment Last Done: 09/13/18 19:03 Instructions: DI for Concussion Activity Restrictions/Additional Instructions: You should return as we talked about if you have any acutely worsening symptoms, or new symptoms such as vomiting or severe headache. Please rest in a quiet environment this weekend, as you may have had a mild concussion even without losing consciousness. Your knee x-ray showed arthritis and some fluid in the joint, and it is likely that fall exacerbated the arthritis, but there is not an acute fracture. Gentle walking is okay, but where your knee brace if needed. You can take your usual Tylenol if you need to at home. Please follow-up with your PCP office next week for recheck (call 1st thing on Saturday and let them know you were seen in the emergency room) Prescriptions: No Action Loratadine (Claritin) 10 mg PO Q AM Qty: 0 RF: 0 metronidazole 0.75 % cream 1 nelson Topical Qty: 0 RF: 0 acyclovir 400 MG tablet 400 mg PO TID PRNQty: 30 RF: 3 nortriptyline 10 MG capsule 10 mg PO BID Qty: 180 RF: 3 levothyroxine [Synthroid] 150 MCG tablet 150 mcg PO QAM Qty: 90 RF: 3 triamcinolone acetonide 0.1 % ointment 1 nelson Topical BID Qty: 15 RF: 0 methocarbamol 500 mg tablet 500 mg PO BEDTIME Qty: 30 RF: 0 estradiol 1 mg tablet 1 mg PO QDAY Qty: 90 RF: 3 sulfasalazine [Azulfidine] 500 mg tablet 1,500 mg PO TID Qty: 810 RF: 3 hydrocodone-acetaminophen 5-325 mg tablet 1 tab PO Q6HP PRN (Reason: pain) Qty: 30 RF: 0 pseudoephedrine HCl 240 mg tablet extended release 24 hr 240 mg PO DAILY PRN (Reason: nasal congestion) Qty: 90 RF: 1 Referrals: Nilda Salmeron DO [Primary Care Provider] - <Tati Salgado DO - Last Filed: 09/14/18 00:17> Cosign ED Attending Sukhwinderature Attestation: I was immediately available in the department for consultation. This documentation has been reviewed and I agree with assessment and plan. Supervised by Tati Salgado DO
--- NOTE | 2018-09-13 17:08 | ED_ITS ---
HPI - Fall <Leila Saenz PA-C - Last Filed: 09/13/18 21:17> General Chief Complaint: Fall Stated Complaint: GLF, hit head on a fence Time Seen by Provider: 09/13/18 17:05 Source: patient Mode of arrival: ambulatory Limitations: no limitations History of Present Illness HPI Narrative: This 68-year-old female tripped over a parking lot bumper that was near a fence a short time prior to arrival. She states that her knee went over the bumper and she the ground 1st with her knees, then outstretched right hand, and hit her right frontal area on the fence. She denies any LOC, nausea or vomiting. She states she has a mild headache/soreness on the right side. Initially she states no vision change, but states that later she has noticed that her right-sided vision seems a little bit different though she is able to read. She states it feels a little bit ?puffy? on that side. She denies any neck pain. She states that her right hand and wrist are a bit sore but no difficulty moving them. She has some ongoing numbness in her right thumb and pinky finger but she has been in physical therapy for, no acute changes. She states that her right knee is more sore than her left, however she was able to get up on her own and walk. She states that she really did not think she needed to come in but came at the insistence of her friends. Related Data Home Medications Medication Instructions Recorded Confirmed Loratadine (Claritin) 10 mg PO Q AM #0 04/21/07 08/04/18 metronidazole 1 nelson TOPICAL #0 02/06/17 08/04/18 Previous Rx's Medication Instructions Recorded acyclovir 400 mg PO TID PRN #30 tab 10/01/17 levothyroxine [Synthroid] 150 mcg PO QAM #90 tab 11/07/17 nortriptyline 10 mg PO BID #180 cap 11/07/17 triamcinolone acetonide 1 nelson TOPICAL BID #15 gm 01/04/18 estradiol 1 mg tablet 1 mg PO QDAY #90 tab 04/16/18 hydrocodone 5 mg-acetaminophen 325 1 tab PO Q6HP PRN #30 tab 04/16/18 mg tablet pseudoephedrine ER 240 mg 240 mg PO DAILY PRN #90 tab 04/16/18 tablet,extended release 24 hr sulfasalazine 500 mg tablet 1,500 mg PO TID #810 tab 04/16/18 methocarbamol 500 mg tablet 500 mg PO BEDTIME #30 tab 06/11/18 Allergies Allergy/AdvReac Type Severity Reaction Status Date / Time fentanyl Allergy Unknown HIVES Verified 09/13/18 16:49 clarithromycin [From BIAXIN] AdvReac Unknown DIAHRREA Verified 09/13/18 16:49 ketorolac AdvReac Unknown STOMACH Verified 09/13/18 16:49 BLEEDING Review of Systems <Leila Saenz PA-C - Last Filed: 09/13/18 21:17> Review of Systems All systems reviewed & are unremarkable except as noted in HPI and below Exam <Leila Saenz PA-C - Last Filed: 09/13/18 21:17> Narrative Exam Narrative: GENERAL APPEARANCE: Patient sitting comfortably, in no distress. HEENT: No abrasions, ecchymoses, or hematoma noted on the scalp. Mild tenderness over the right frontal scalp. PERRL, EOMI, normal ear canals, nasal and oral mucosa without evidence of bleed. Uncorrected vision 20/30 OD, 20/40 OS, 20/30 OU NECK: Supple LUNGS: Clear to auscultation bilaterally. HEART: Rate and rhythm regular without murmur, normal S1 and S2, no S3 or S4. NEUROLOGIC: Alert and oriented, normal speech and coordination. MUSCULOSKELETAL: No point tenderness over the cervical spine. Full Csp AROM. No point tenderness over the right distal forearm, wrist, hand or fingers. Joints are nodular. Full range of motion and armored cable machine operator strength intact. Right knee mild joint line and patellar tenderness with mild effusion. Reduced flexion secondary to tenderness. Left knee no effusion or tenderness to palpation. Full range of motion without tenderness. DERMATOLOGIC: Superficial abrasions noted on both central patellar areas, none elsewhere, no ecchymoses noted Initial Vital Signs Initial Vital Signs: Vital Signs Temperature 97.4 F L 09/13/18 16:49 Pulse Rate 93 H 09/13/18 16:49 Respiratory Rate 15 09/13/18 16:49 Blood Pressure 131/79 09/13/18 16:49 Pulse Oximetry 97 09/13/18 16:49 <Tati Salgado DO - Last Filed: 09/14/18 00:17> Initial Vital Signs Initial Vital Signs: Vital Signs Temperature 97.4 F L 09/13/18 16:49 Pulse Rate 93 H 09/13/18 16:49 Respiratory Rate 15 09/13/18 16:49 Blood Pressure 131/79 09/13/18 16:49 Pulse Oximetry 97 09/13/18 16:49 Course <Leila Saenz PA-C - Last Filed: 09/13/18 21:17> Additional Information: Patient initially stated she had not wanted to come here and pain was not severe enough that she would take Tylenol at home as far as her headache, however she did have some feeling of vague vision disturbance ( vision checked uncorrected), so we did proceed with head CT which did not show any acute findings. Knee x-ray showed osteoarthritis with mild effusion, likely exacerbation due to confusion. She agreed to return if any acutely worsening symptoms, otherwise follow up with PCP as sx are consistent with mild concussion. Orders Ordered: ED Orders 09/13/18 17:21 CT head/brain wo con Stat XR knee RT 3V Stat Discontinued Medications Acetaminophen (Tylenol) 650 mg PO NOW ONE Stop: 09/13/18 17:27 Last Admin: 09/13/18 17:46 Dose: 650 mg Vital Signs - 8 hr 09/13/18 16:49 09/13/18 18:44 Temperature 97.4 F L Pulse Rate 93 H 88 Respiratory Rate 15 14 Blood Pressure 131/79 Blood Pressure [Left Arm] 118/57 L Pulse Oximetry 97 97 <Tati Salgado DO - Last Filed: 09/14/18 00:17> Orders Ordered: ED Orders 09/13/18 17:21 CT head/brain wo con Stat XR knee RT 3V Stat Discontinued Medications Acetaminophen (Tylenol) 650 mg PO NOW ONE Stop: 09/13/18 17:27 Last Admin: 09/13/18 17:46 Dose: 650 mg Vital Signs - 8 hr 09/13/18 16:49 09/13/18 18:44 Temperature 97.4 F L Pulse Rate 93 H 88 Respiratory Rate 15 14 Blood Pressure 131/79 Blood Pressure [Left Arm] 118/57 L Pulse Oximetry 97 97 MDM - Fall <Leila Saenz PA-C - Last Filed: 09/13/18 21:17> Imaging Data CT scan - head: Radiologist's impression: Chart Viewer Diagnostics DATE TYPE STATUS AUTHOR Hx 09/13/18 17:21 SheelaForest goetzblade 07/28/18 13:36 Chandler Lew 07/08/18 08:08 Javan Dale 06/08/18 11:21 Oliverio Bustamante 06/08/18 10:44 Oliverio Bustamante Sharon L 68, F0 1950 [facility] ER, ED - Main ED: R04 172.72cm 84.368kg BSA: 1.98m? BMI: 28.3kg/m? Fall Search Chart NF - Not included in interaction checking fentanyl HIVES clarithromycin (From BIAXIN) DIAHRREA ketorolac STOMACH BLEEDING ONSET 05/18/04 05/18/04 05/18/04 02/06/17 06/20/17 06/20/17 12/16/17 Today 16:49 [place] [address] CT Scan Report Signed Patient: Karley Damico LMR#: [id number] : 1950Acct:[id number] Age/Sex: 68 / FDate of Service: 09/13/18 Loc: ED Accession Number: [id number] Procedure: CT head/brain wo con Ordering Provider: Leila Saenz P.A-C PROCEDURE: CT HEAD/BRAIN WO CON INDICATIONS: fall, Right frontal pain, vision change TECHNIQUE: Noncontrast 4.5 mm thick angled axial sections acquired from the foramen magnum to the vertex, with coronal and sagittal reformats. For radiation dose reduction, the following was used: automated exposure control, adjustment of mA and/or kV according to patient size. COMPARISON: [facility], CT, HEAD WITHOUT CONTRAST, 04/10/2013, 13:59. [facility], CT, CT ANGIO HEAD AND NECK, 06/08/2018, 11:38. FINDINGS: Image quality: Excellent. CSF spaces: Basal cisterns are patent. No extra-axial fluid collections. Ventricles are normal in size and shape. Brain: No midline shift. No intracranial masses or hemorrhage. Mild cerebral volume loss. Layne-white matter interface is normal. Skull and face: Calvarium and visualized facial bones are intact, without suspicious lesions. Sinuses: Visualized sinuses and mastoids are clear. IMPRESSION: 1. No acute intracranial abnormalities. Dictated by: Dimitris Coker M.D. on 09/13/2018 at 18:02 Approved by: Dimitris Coker M.D. on 09/13/2018 at 18:04 knee: Radiologist's impression: [address] [address] XRay Report Signed Patient: Karley Damico LMR#: [id number] : 1950Acct:[id number] Age/Sex: 68 / FDate of Service: 09/13/18 Loc: ED Accession Number: [id number] Procedure: XR knee RT 3V Ordering Provider: Leila Saenz P.A-C PROCEDURE: XR KNEE RT 3V INDICATIONS: fall on knee, joint line and patellar pain TECHNIQUE: 3 views of the knee were acquired. COMPARISON: [facility], , KNEE 3V RIGHT, 04/18/2017, 11:25. FINDINGS: Bones: No fractures or dislocations. No suspicious bony lesions. Moderate to severe tricompartmental knee joint degeneration. Soft tissues: Small joint effusion. No suspicious soft tissue calcifications. IMPRESSION: 1. Moderate to severe degenerative joint disease. 2. Small knee joint effusion. Dictated by: Dimitris Coker M.D. on 09/13/2018 at 18:04 Approved by: Dimitris Coker M.D. on 09/13/2018 at 18:14 Discharge Plan Departure Patient Disposition: Home Clinical Impression: Contusion of multiple sites, Concussion Discharge Date/Time: 09/13/18 19:05 Interventions: ED Discharge Assessment Last Done: 09/13/18 19:03 Instructions: DI for Concussion Activity Restrictions/Additional Instructions: You should return as we talked about if you have any acutely worsening symptoms , or new symptoms such as vomiting or severe headache. Please rest in a quiet environment this weekend, as you may have had a mild concussion even without losing consciousness. Your knee x-ray showed arthritis and some fluid in the joint, and it is likely that fall exacerbated the arthritis, but there is not an acute fracture. Gentle walking is okay, but where your knee brace if needed. You can take your usual Tylenol if you need to at home. Please follow- up with your PCP office next week for recheck (call 1st thing on Saturday and let them know you were seen in the emergency room) Prescriptions: No Action Loratadine (Claritin) 10 mg PO Q AM Qty: 0 RF: 0 metronidazole 0.75 % cream 1 nelson Topical Qty: 0 RF: 0 acyclovir 400 MG tablet 400 mg PO TID PRNQty: 30 RF: 3 nortriptyline 10 MG capsule 10 mg PO BID Qty: 180 RF: 3 levothyroxine [Synthroid] 150 MCG tablet 150 mcg PO QAM Qty: 90 RF: 3 triamcinolone acetonide 0.1 % ointment 1 nelson Topical BID Qty: 15 RF: 0 methocarbamol 500 mg tablet 500 mg PO BEDTIME Qty: 30 RF: 0 estradiol 1 mg tablet 1 mg PO QDAY Qty: 90 RF: 3 sulfasalazine [Azulfidine] 500 mg tablet 1,500 mg PO TID Qty: 810 RF: 3 hydrocodone-acetaminophen 5-325 mg tablet 1 tab PO Q6HP PRN (Reason: pain) Qty: 30 RF: 0 pseudoephedrine HCl 240 mg tablet extended release 24 hr 240 mg PO DAILY PRN (Reason: nasal congestion) Qty: 90 RF: 1 Referrals: Nilda Salmeron DO [Primary Care Provider] - <Tati Salgado DO - Last Filed: 09/14/18 00:17> Cosign ED Attending Sukhwinderature Attestation: I was immediately available in the department for consultation. This documentation has been reviewed and I agree with assessment and plan. Supervised by Tati Salgado DO
--- NOTE | 2018-09-13 17:21 | DI.RAD.S_ITS ---
PROCEDURE: XR KNEE RT 3V INDICATIONS: fall on knee, joint line and patellar pain TECHNIQUE: 3 views of the knee were acquired. COMPARISON: [facility], , KNEE 3V RIGHT, 04/18/2017, 11:25. FINDINGS: Bones: No fractures or dislocations. No suspicious bony lesions. Moderate to severe tricompartmental knee joint degeneration. Soft tissues: Small joint effusion. No suspicious soft tissue calcifications. IMPRESSION: 1. Moderate to severe degenerative joint disease. 2. Small knee joint effusion. Dictated by: Dimitris Coker M.D. on 09/13/2018 at 18:04 Approved by: Dimitris Coker M.D. on 09/13/2018 at 18:14
--- NOTE | 2018-09-13 17:21 | DI.CT.S_ITS ---
PROCEDURE: CT HEAD/BRAIN WO CON INDICATIONS: fall, Right frontal pain, vision change TECHNIQUE: Noncontrast 4.5 mm thick angled axial sections acquired from the foramen magnum to the vertex, with coronal and sagittal reformats. For radiation dose reduction, the following was used: automated exposure control, adjustment of mA and/or kV according to patient size. COMPARISON: [facility], CT, HEAD WITHOUT CONTRAST, 04/10/2013, 13:59. [facility], CT, CT ANGIO HEAD AND NECK, 06/08/2018, 11:38. FINDINGS: Image quality: Excellent. CSF spaces: Basal cisterns are patent. No extra-axial fluid collections. Ventricles are normal in size and shape. Brain: No midline shift. No intracranial masses or hemorrhage. Mild cerebral volume loss. Layne-white matter interface is normal. Skull and face: Calvarium and visualized facial bones are intact, without suspicious lesions. Sinuses: Visualized sinuses and mastoids are clear. IMPRESSION: 1. No acute intracranial abnormalities. Dictated by: Dimitris Coker M.D. on 09/13/2018 at 18:02 Approved by: Dimitris Coker M.D. on 09/13/2018 at 18:04
[2018-09-13] MEDS: ACETAMINOPHEN 325 MG TABLET 650 MG PO (17:46)
[2018-09-13 18:44] VITALS: BP 118/57; PULSE 88; RESP 14; O2SAT 97
== END 2018-09-13 19:05 | disposition home or self-care (01) ==
PROVIDERS: Emergency Provider Internal Medicine; PCP Family Medicine
DX: S06.0X0A Concussion without loss of consciousness, initial encounter (principal); T07.XXXA Unspecified multiple injuries, initial encounter; W01.0XXA Fall on same level from slipping, tripping and stumbling without subsequent striking against object, initial encounter
CPT/HCPCS: 70450; 73562; 99283; 99284

== ENCOUNTER 2018-09-18 11:45 | Emergency (ER) | payer MEDICARE, OTHER, SELFPAY ==
[2018-09-18 11:54] VITALS: BP 138/77; PULSE 83; RESP 20; TEMP 35.9; O2SAT 98; BMI 29.1
--- NOTE | 2018-09-18 12:05 | ED_ITS ---
HPI - Headache <Leila Saenz PA-C - Last Filed: 09/18/18 19:24> General Chief Complaint: Headache Stated Complaint: headache during sleep, took medicine at 6 this am Time Seen by Provider: 09/18/18 12:00 Source: patient Mode of arrival: ambulatory Limitations: no limitations History of Present Illness HPI Narrative: This 68-year-old female comes to ED due to right frontal area headache. This started during the night. She states that she is unsure that it awoke her from sleep or if she woke up because she was warm from the fireplace. She states that it did not keep her from falling back asleep but still had it about 6:00 a.m.. Took a couple of Tylenol and states she felt better for some time, but since the late morning headache has been worsening again. She states she has maybe very slight nausea, thinks due to not having any food or fluids today. She has not had any vomiting. She denies any vision change, but states her eye area feels swollen and a little bit different since her contusion last week. She denies any difficulty with speech or coordination or other new complaints with this headache, nor has her fiancee noticed any change. She states that she thinks she might have overdone working the last couple of days as she has been packing and getting ready to move, but no other new injury. She states that she does have a history of migraines years ago but probably has not had 1 for 18-20 years. Related Data Home Medications Medication Instructions Recorded Confirmed Loratadine (Claritin) 10 mg PO Q AM #0 04/21/07 08/04/18 metronidazole 1 nelson TOPICAL #0 02/06/17 08/04/18 Previous Rx's Medication Instructions Recorded acyclovir 400 mg PO TID PRN #30 tab 10/01/17 levothyroxine [Synthroid] 150 mcg PO QAM #90 tab 11/07/17 nortriptyline 10 mg PO BID #180 cap 11/07/17 triamcinolone acetonide 1 nelson TOPICAL BID #15 gm 01/04/18 estradiol 1 mg tablet 1 mg PO QDAY #90 tab 04/16/18 hydrocodone 5 mg-acetaminophen 325 1 tab PO Q6HP PRN #30 tab 04/16/18 mg tablet pseudoephedrine ER 240 mg 240 mg PO DAILY PRN #90 tab 04/16/18 tablet,extended release 24 hr sulfasalazine 500 mg tablet 1,500 mg PO TID #810 tab 04/16/18 methocarbamol 500 mg tablet 500 mg PO BEDTIME #30 tab 06/11/18 Allergies Allergy/AdvReac Type Severity Reaction Status Date / Time fentanyl Allergy Unknown HIVES Verified 09/13/18 16:49 clarithromycin [From BIAXIN] AdvReac Unknown DIAHRREA Verified 09/13/18 16:49 ketorolac AdvReac Unknown STOMACH Verified 09/13/18 16:49 BLEEDING Review of Systems <Leila Saenz PA-C - Last Filed: 09/18/18 19:24> Review of Systems All systems reviewed & are unremarkable except as noted in HPI and below Exam <ANA Dietz Last Filed: 09/18/18 19:24> Narrative Exam Narrative: GENERAL APPEARANCE: Patient sitting comfortably, in no distress. HEENT: PERRL, EOMI, normal oropharynx, right frontal and brow line tenderness in area of ecchymoses, minimal maxillary tenderness on the right, none on the left NECK: Supple LUNGS: Clear to auscultation bilaterally. HEART: Rate and rhythm regular without murmur, normal S1 and S2, no S3 or S4. ABDOMEN: Soft, NT, ND, + BS x 4 quadrants NEUROLOGIC: Alert and oriented, normal speech, and coordination. MUSCULOSKELETAL: Full Csp AROM EXTREMITIES: No edema Initial Vital Signs Initial Vital Signs: Vital Signs Temperature 96.7 F L 09/18/18 11:54 Pulse Rate 83 09/18/18 11:54 Respiratory Rate 20 09/18/18 11:54 Blood Pressure 138/77 09/18/18 11:54 Pulse Oximetry 98 09/18/18 11:54 <Isaak Beasley DO - Last Filed: 09/19/18 07:00> Initial Vital Signs Initial Vital Signs: Vital Signs Temperature 96.7 F L 09/18/18 11:54 Pulse Rate 83 09/18/18 11:54 Respiratory Rate 20 09/18/18 11:54 Blood Pressure 138/77 09/18/18 11:54 Pulse Oximetry 98 09/18/18 11:54 Course <ANA Dietz Last Filed: 09/18/18 19:24> Additional Information: Patient reported nausea resolved, feeling better after fluids and medications. Headache did worsen again when she when out into the like to use the restroom but reported right-sided headache better and improved overall. She felt like she would be comfortable resting at home. She agreed to return if any acutely worsening symptoms Orders Ordered: Discontinued Medications Acetaminophen (Tylenol) 650 mg PO NOW ONE Stop: 09/18/18 12:19 Last Admin: 09/18/18 12:45 Dose: 650 mg Hydrocodone Bitart/Acetaminophen ([place] 5/325) 2 tab PO NOW ONE Stop: 09/18/18 14:11 Last Admin: 09/18/18 14:18 Dose: 2 tab Hydrocodone Bitart/Acetaminophen (Vicodin Prepack) 1 bottle MISC SEEINSTR ONE Stop: 09/18/18 15:44 Last Admin: 09/18/18 16:00 Dose: 1 bottle Sodium Chloride (Normal Saline 0.9%) 1,000 mls @ 1,000 mls/hr IV BOLUS ONE Stop: 09/18/18 13:17 Last Infusion: 09/18/18 15:00 Dose: 0 mls/hr Admin: 09/18/18 12:46 Dose: 1,000 mls/hr Ondansetron HCl (Zofran) 4 mg IV NOW ONE Stop: 09/18/18 12:21 Last Admin: 09/18/18 12:45 Dose: 4 mg Ondansetron HCl (Zofran Odt Prepack) 1 bottle MISC SEEINSTR ONE Stop: 09/18/18 15:44 Last Admin: 09/18/18 16:00 Dose: 1 bottle Vital Signs - 8 hr 09/18/18 11:54 09/18/18 13:36 09/18/18 14:22 Temperature 96.7 F L Pulse Rate 83 77 79 Respiratory Rate 20 14 14 Blood Pressure 138/77 Blood Pressure [Right Arm] 124/65 117/62 Pulse Oximetry 98 98 92 09/18/18 16:01 Temperature Pulse Rate 86 Respiratory Rate 16 Blood Pressure 113/53 L Blood Pressure [Right Arm] Pulse Oximetry 94 <Isaak Beasley DO - Last Filed: 09/19/18 07:00> Orders Ordered: Discontinued Medications Acetaminophen (Tylenol) 650 mg PO NOW ONE Stop: 09/18/18 12:19 Last Admin: 09/18/18 12:45 Dose: 650 mg Hydrocodone Bitart/Acetaminophen ([place] 5/325) 2 tab PO NOW ONE Stop: 09/18/18 14:11 Last Admin: 09/18/18 14:18 Dose: 2 tab Hydrocodone Bitart/Acetaminophen (Vicodin Prepack) 1 bottle MISC SEEINSTR ONE Stop: 09/18/18 15:44 Last Admin: 09/18/18 16:00 Dose: 1 bottle Sodium Chloride (Normal Saline 0.9%) 1,000 mls @ 1,000 mls/hr IV BOLUS ONE Stop: 09/18/18 13:17 Last Infusion: 09/18/18 15:00 Dose: 0 mls/hr Admin: 09/18/18 12:46 Dose: 1,000 mls/hr Ondansetron HCl (Zofran) 4 mg IV NOW ONE Stop: 09/18/18 12:21 Last Admin: 09/18/18 12:45 Dose: 4 mg Ondansetron HCl (Zofran Odt Prepack) 1 bottle MISC SEEINSTR ONE Stop: 09/18/18 15:44 Last Admin: 09/18/18 16:00 Dose: 1 bottle Vital Signs - 8 hr 09/18/18 11:54 09/18/18 13:36 09/18/18 14:22 Temperature 96.7 F L Pulse Rate 83 77 79 Respiratory Rate 20 14 14 Blood Pressure 138/77 Blood Pressure [Right Arm] 124/65 117/62 Pulse Oximetry 98 98 92 09/18/18 16:01 Temperature Pulse Rate 86 Respiratory Rate 16 Blood Pressure 113/53 L Blood Pressure [Right Arm] Pulse Oximetry 94 MDM - Headache <Leila Saenz PA-C - Last Filed: 09/18/18 19:24> Imaging Data CT scan - head: Radiologist's impression: [address] [address] [address] Scan Report Signed Patient: Karley Damico LMR#: [id number] : 1950Acct:[id number] Age/Sex: 68 / FDate of Service: 09/18/18 Loc: ED Accession Number: [id number] Procedure: CT head/brain wo con Ordering Provider: Fishfader,Leila P.A-C PROCEDURE: CT HEAD/BRAIN WO CON INDICATIONS: R. frontal GONCALVES s/p concussion last week TECHNIQUE: Noncontrast 4.5 mm thick angled axial sections acquired from the foramen magnum to the vertex, with coronal and sagittal reformats. For radiation dose reduction, the following was used: automated exposure control, adjustment of mA and/or kV according to patient size. COMPARISON: [facility], CT, CT HEAD/BRAIN WO CON, 09/13/2018, 17:24. FINDINGS: Image quality: Excellent. CSF spaces: Basal cisterns are patent. No extra-axial fluid collections. The ventricles are symmetric in size and shape. Brain: No intracranial bleeds or masses. There is cerebral volume loss for age , with resultant ventricular and sulcal prominence. There are periventricular and deep white matter chronic small vessel ischemic changes. There is intracranial internal carotid artery atherosclerosis. Skull and face: Calvarium and visualized facial bones appear intact, without suspicious lesions. Sinuses: Visualized sinuses and mastoids are clear. IMPRESSION: 1. No acute intracranial process. 2. Mild atrophy and chronic microvascular ischemic changes. Dictated by: Akila Burris M.D. on 09/18/2018 at 13:59 Approved by: Akila Burris M.D. on 09/18/2018 at 13:59 face: Radiologist's impression: [place] [address] CT Scan Report Signed Patient: Karley Damico LMR#: [id number] : 1950Acct:[id number] Age/Sex: 68 / FDate of Service: 09/18/18 Loc: ED Accession Number: [id number] Procedure: CT facial bones wo con Ordering Provider: Leila Saenz-Sony PROCEDURE: CT FACIAL BONES WO CON INDICATIONS: R. orbital pain s/p contusion TECHNIQUE: Noncontrast 2.5 mm thick axial images acquired from the mandible through the frontal sinuses, with coronal and sagittal reformatting. For radiation dose reduction, the following was used: automated exposure control, adjustment of mA and/or kV according to patient size. COMPARISON: None. FINDINGS: Image quality: Excellent. Bones and teeth: Orbital saldivar are intact. Sinus saldivar show no fracture or deformity. Nasal bones and septum are intact. Visualized portions of the mandible demonstrate no fractures or subluxation. Zygomatic arches are intact. Pterygoid plates are intact. Visualized portions of the skull base and auditory canals are intact. Sinuses: Paranasal sinuses are aerated, without fluid levels, mucosal thickening, or mucoceles. Mastoid air cells are aerated. Soft tissues: No edema, masses, or fluid collections. No enlarged lymph nodes. No soft tissue lacerations or debris. Vascular: Visualized vascular structures appear normal in the absence of contrast. Bony vascular foramina and canals are intact. IMPRESSION: No visualized fracture. Dictated by: Akila Burris M.D. on 09/18/2018 at 14:02 Approved by: Akila Burris M.D. on 09/18/2018 at 14:03 Discharge Plan Departure Patient Disposition: Home Clinical Impression: Post-concussion headache Discharge Date/Time: 09/18/18 16:07 Interventions: ED Discharge Assessment Last Done: 09/18/18 16:01 Instructions: DI for Postconcussion Syndrome, DI for Headache Activity Restrictions/Additional Instructions: Please return as we talked about if you have acutely worsening symptoms/pain, or new symptoms such as protracted vomiting, vision change, or fever. As we talked about, I think that your headache today is likely related to the after effects of your concussion and overdoing it last couple of days with your packing and moving preparation. This is not uncommon with concussion, and you likely need to resume your normal schedule more gradually. Your headache also has some features of migraine today and this could of also triggered a migraine , causing a mixed headache. Please continue to rest in a quiet environment today , no physical or mental work including screen time or reading. Take the pain and nausea medicine as needed. Eat and drink normally. Follow-up with your PCP 1st of next week as planned and talk about a schedule to return to normal activity depending upon your progress in the next few days Prescriptions: No Action Loratadine (Claritin) 10 mg PO Q AM Qty: 0 RF: 0 metronidazole 0.75 % cream 1 nelson Topical Qty: 0 RF: 0 acyclovir 400 MG tablet 400 mg PO TID PRNQty: 30 RF: 3 nortriptyline 10 MG capsule 10 mg PO BID Qty: 180 RF: 3 levothyroxine [Synthroid] 150 MCG tablet 150 mcg PO QAM Qty: 90 RF: 3 triamcinolone acetonide 0.1 % ointment 1 nelson Topical BID Qty: 15 RF: 0 methocarbamol 500 mg tablet 500 mg PO BEDTIME Qty: 30 RF: 0 estradiol 1 mg tablet 1 mg PO QDAY Qty: 90 RF: 3 sulfasalazine [Azulfidine] 500 mg tablet 1,500 mg PO TID Qty: 810 RF: 3 hydrocodone-acetaminophen 5-325 mg tablet 1 tab PO Q6HP PRN (Reason: pain) Qty: 30 RF: 0 pseudoephedrine HCl 240 mg tablet extended release 24 hr 240 mg PO DAILY PRN (Reason: nasal congestion) Qty: 90 RF: 1 Referrals: Nilda Salmeron DO [Primary Care Provider] - <Isaak Beasley DO - Last Filed: 09/19/18 07:00> Cosign ED Attending Baljinder Attestation: I was available for consultation during this patient's emergency department encounter
--- NOTE | 2018-09-18 12:18 | DI.CT.S_ITS ---
PROCEDURE: CT FACIAL BONES WO CON INDICATIONS: R. orbital pain s/p contusion TECHNIQUE: Noncontrast 2.5 mm thick axial images acquired from the mandible through the frontal sinuses, with coronal and sagittal reformatting. For radiation dose reduction, the following was used: automated exposure control, adjustment of mA and/or kV according to patient size. COMPARISON: None. FINDINGS: Image quality: Excellent. Bones and teeth: Orbital saldivar are intact. Sinus saldivar show no fracture or deformity. Nasal bones and septum are intact. Visualized portions of the mandible demonstrate no fractures or subluxation. Zygomatic arches are intact. Pterygoid plates are intact. Visualized portions of the skull base and auditory canals are intact. Sinuses: Paranasal sinuses are aerated, without fluid levels, mucosal thickening, or mucoceles. Mastoid air cells are aerated. Soft tissues: No edema, masses, or fluid collections. No enlarged lymph nodes. No soft tissue lacerations or debris. Vascular: Visualized vascular structures appear normal in the absence of contrast. Bony vascular foramina and canals are intact. IMPRESSION: No visualized fracture. Dictated by: Akila Burris M.D. on 09/18/2018 at 14:02 Approved by: Akila Burris M.D. on 09/18/2018 at 14:03
--- NOTE | 2018-09-18 12:18 | DI.CT.S_ITS ---
PROCEDURE: CT HEAD/BRAIN WO CON INDICATIONS: R. frontal GONCALVES s/p concussion last week TECHNIQUE: Noncontrast 4.5 mm thick angled axial sections acquired from the foramen magnum to the vertex, with coronal and sagittal reformats. For radiation dose reduction, the following was used: automated exposure control, adjustment of mA and/or kV according to patient size. COMPARISON: [facility], CT, CT HEAD/BRAIN WO CON, 09/13/2018, 17:24. FINDINGS: Image quality: Excellent. CSF spaces: Basal cisterns are patent. No extra-axial fluid collections. The ventricles are symmetric in size and shape. Brain: No intracranial bleeds or masses. There is cerebral volume loss for age, with resultant ventricular and sulcal prominence. There are periventricular and deep white matter chronic small vessel ischemic changes. There is intracranial internal carotid artery atherosclerosis. Skull and face: Calvarium and visualized facial bones appear intact, without suspicious lesions. Sinuses: Visualized sinuses and mastoids are clear. IMPRESSION: 1. No acute intracranial process. 2. Mild atrophy and chronic microvascular ischemic changes. Dictated by: Akila Burris M.D. on 09/18/2018 at 13:59 Approved by: Akila Burris M.D. on 09/18/2018 at 13:59
[2018-09-18] MEDS: ACETAMINOPHEN 325 MG TABLET 650 MG PO (12:45)
[2018-09-18] MEDS: ONDANSETRON 4 MG/2 ML INJ IV (12:45)
[2018-09-18] MEDS: SODIUM CHLORIDE 0.9% 1,000 ML 1000 ML IV (12:46)
[2018-09-18 13:36] VITALS: BP 124/65; PULSE 77; RESP 14; O2SAT 98
[2018-09-18] MEDS: HYDROCODONE/ACET 5/325 TABLET 2 TAB PO (14:18)
[2018-09-18 14:22] VITALS: BP 117/62; PULSE 79; RESP 14; O2SAT 92
[2018-09-18] MEDS: HYDROCODONE/ACET 5/325 PREPACK 1 BOTTLE MISC (16:00)
[2018-09-18] MEDS: ONDANSETRON 4 MG ODT PREPACK 1 BOTTLE MISC (16:00)
[2018-09-18 16:01] VITALS: BP 113/53; PULSE 86; RESP 16; O2SAT 94
== END 2018-09-18 16:07 | disposition home or self-care (01) ==
PROVIDERS: Emergency Provider Internal Medicine; PCP Family Medicine
DX: G44.309 Post-traumatic headache, unspecified, not intractable (principal)
CPT/HCPCS: 36591; 70450; 70486; 96361; 96374; 99283; 99284; J2405

== ENCOUNTER 2018-09-27 16:45 | Emergency (ER) | payer MEDICARE, OTHER, SELFPAY ==
--- NOTE | 2018-09-27 17:08 | ED_ITS ---
HPI - Headache <Leila Saenz PA-C - Last Filed: 09/27/18 21:25> General Chief Complaint: Headache Stated Complaint: FALL 2WKS AGO,HEAD HURTS Time Seen by Provider: 09/27/18 17:05 Source: patient Mode of arrival: ambulatory Limitations: no limitations History of Present Illness HPI Narrative: This 68-year-old female is sent to ED from walk-in clinic due to recurrent headache. She sustained a concussion last month after right frontal and facial contusions. she states that she has been working about 4 hr daily and doing okay most days. She states that she return to her [facility] appointment on Saturday and after that, was exhausted and slept 4 hr. She felt better on , and states she was out and about doing errands for a long time on Saturday, also doing work and on computer yesterday. She slept for 7 hr last night, had a headache shortly after she woke up today. She took some Tylenol and went back to sleep for a few hours. Her fiance was concerned when she did not answer her phone around 10:00 a.m. ( she had shut it off), so had a friend check on her. She states that she had slept until then. She states that she had the recurrent sensation of swelling and puffiness around her right eye area today, but headache less severe than it was last week when see. She has not had any nausea or vomiting, new vision change. She has not had new symptoms such as fever, jaw claudication, chest pain or dyspnea. No new fever or other new complaints on systems review Related Data Home Medications Medication Instructions Recorded Confirmed Loratadine (Claritin) 10 mg PO Q AM #0 04/21/07 09/19/18 metronidazole 1 nelson TOPICAL #0 02/06/17 09/19/18 Previous Rx's Medication Instructions Recorded acyclovir 400 mg PO TID PRN #30 tab 10/01/17 levothyroxine [Synthroid] 150 mcg PO QAM #90 tab 11/07/17 nortriptyline 10 mg PO BID #180 cap 11/07/17 triamcinolone acetonide 1 nelson TOPICAL BID #15 gm 01/04/18 estradiol 1 mg tablet 1 mg PO QDAY #90 tab 04/16/18 pseudoephedrine ER 240 mg 240 mg PO DAILY PRN #90 tab 04/16/18 tablet,extended release 24 hr sulfasalazine 500 mg tablet 1,500 mg PO TID #810 tab 04/16/18 methocarbamol 500 mg tablet 500 mg PO BEDTIME #30 tab 06/11/18 hydrocodone 5 mg-acetaminophen 325 1 tab PO Q6HP PRN #30 tab 09/19/18 mg tablet Allergies Allergy/AdvReac Type Severity Reaction Status Date / Time fentanyl Allergy Unknown HIVES Verified 09/27/18 17:17 clarithromycin [From BIAXIN] AdvReac Unknown DIAHRREA Verified 09/27/18 17:17 ketorolac AdvReac Unknown STOMACH Verified 09/27/18 17:17 BLEEDING Review of Systems <Leila Saenz PA-C - Last Filed: 09/27/18 21:25> Review of Systems All systems reviewed & are unremarkable except as noted in HPI and below Exam <ANA Dietz Last Filed: 09/27/18 21:25> Narrative Exam Narrative: GENERAL APPEARANCE: Patient sitting comfortably, in no distress. HEENT: PERRL, EOMI, normal TMs and oropharynx, no sinus or facial tenderness NECK: Supple LUNGS: Clear to auscultation bilaterally. HEART: Rate and rhythm regular without murmur, normal S1 and S2, no S3 or S4. NEUROLOGIC: Alert and oriented, normal speech, gait and coordination. MUSCULOSKELETAL: Full Csp AROM Initial Vital Signs Initial Vital Signs: Vital Signs Pulse Rate 77 09/27/18 17:17 Respiratory Rate 14 09/27/18 17:17 Blood Pressure 133/81 09/27/18 17:17 Pulse Oximetry 100 09/27/18 17:17 <Tati Salgado DO - Last Filed: 09/29/18 07:14> Initial Vital Signs Initial Vital Signs: Vital Signs Pulse Rate 77 09/27/18 17:17 Respiratory Rate 14 09/27/18 17:17 Blood Pressure 133/81 09/27/18 17:17 Pulse Oximetry 100 09/27/18 17:17 Course <ANA Dietz Last Filed: 09/27/18 21:25> Additional Information: reassured patient that her exam appears essentially normal tonight. She is describing typical post concussion symptoms exacerbated by more activity. Again talked about monitoring her activity and work load, advised to keep a brief diary of how much activity she can tolerate in the day and can try to advance that by 15 or 20 min daily as long as no symptoms. This may help her PCP at follow-up next week. I do not think further imaging is indicated at this point since she has not developed new symptoms. She agrees to return if any acutely worsening symptoms or new changes such as vomiting or vision changes Vital Signs - 8 hr 09/27/18 17:17 Pulse Rate 77 Respiratory Rate 14 Blood Pressure 133/81 Pulse Oximetry 100 <Tati Salgado DO - Last Filed: 09/29/18 07:14> Vital Signs - 8 hr 09/27/18 17:17 Pulse Rate 77 Respiratory Rate 14 Blood Pressure 133/81 Pulse Oximetry 100 Discharge Plan Departure Patient Disposition: Home Clinical Impression: Post concussion syndrome Discharge Date/Time: 09/27/18 17:58 Interventions: ED Discharge Assessment Last Done: 09/27/18 17:57 Instructions: DI for Postconcussion Syndrome Activity Restrictions/Additional Instructions: please return as we talked about if you have acutely worsening pain, or new symptoms such as vomiting or vision change. Otherwise, please continue to rest as you need to. As we discussed, please keep a journal of your daily activities (to determine what you can tolerate and how to progress ) to review with Dr. Salmeron at your follow-up next week. Remember, if you can work for 4 hr now without symptoms, try to extend your activity by 15 or 20 min the next day, not several hours. this needs to include work/mental stressors as well as physical stressors such as errands and packing. You can continue your pain medicine as you need to. Prescriptions: No Action Loratadine (Claritin) 10 mg PO Q AM Qty: 0 RF: 0 metronidazole 0.75 % cream 1 nelson Topical Qty: 0 RF: 0 acyclovir 400 MG tablet 400 mg PO TID PRNQty: 30 RF: 3 nortriptyline 10 MG capsule 10 mg PO BID Qty: 180 RF: 3 levothyroxine [Synthroid] 150 MCG tablet 150 mcg PO QAM Qty: 90 RF: 3 triamcinolone acetonide 0.1 % ointment 1 nelson Topical BID Qty: 15 RF: 0 methocarbamol 500 mg tablet 500 mg PO BEDTIME Qty: 30 RF: 0 hydrocodone-acetaminophen 5-325 mg tablet 1 tab PO Q6HP PRN (Reason: pain) Qty: 30 RF: 0 estradiol 1 mg tablet 1 mg PO QDAY Qty: 90 RF: 3 sulfasalazine [Azulfidine] 500 mg tablet 1,500 mg PO TID Qty: 810 RF: 3 pseudoephedrine HCl 240 mg tablet extended release 24 hr 240 mg PO DAILY PRN (Reason: nasal congestion) Qty: 90 RF: 1 Referrals: Nilda Salmeron DO [Primary Care Provider] - <Tati Salgado DO - Last Filed: 09/29/18 07:14> Cosign ED Attending Cosignature Attestation: I was immediately available in the department for consultation. This documentation has been reviewed and I agree with assessment and plan. Supervised by Tati Salgado DO
[2018-09-27 17:17] VITALS: BP 133/81; PULSE 77; RESP 14; O2SAT 100; BMI 30.9
== END 2018-09-27 17:58 | disposition home or self-care (01) ==
PROVIDERS: Emergency Provider Internal Medicine; PCP Family Medicine
DX: F07.81 Postconcussional syndrome (principal)
CPT/HCPCS: 99282

== ENCOUNTER → 2018-10-02 11:34 | Outpatient (CLI) | payer MEDICARE, OTHER, SELFPAY ==
[2018-10-02 13:37] LABS: Free T3, Triiodothyronine Free 3.04 pg/mL (2.77-5.27); Free T4, Direct Thyroxine 1.78 ng/dL (0.78-2.19)
[2018-10-02 13:51] LABS: Thyroid Stimulating Hormone 0.05 uIU/mL (0.47-4.68)
== END ==
PROVIDERS: PCP Family Medicine; Visit Provider Family Medicine
DX: E03.9 Hypothyroidism, unspecified (principal)
CPT/HCPCS: 36415; 84439; 84443; 84481

== ENCOUNTER → 2018-12-09 16:33 | Outpatient (CLI) | payer MEDICARE, OTHER, SELFPAY ==
[2018-12-09 18:49] LABS: Free T3, Triiodothyronine Free 2.64 pg/mL (2.77-5.27); Free T4, Direct Thyroxine 1.58 ng/dL (0.78-2.19)
[2018-12-09 19:03] LABS: TSH w/ Reflex to FT4 1.04 uIU/mL (0.47-4.68)
== END ==
PROVIDERS: PCP Family Medicine; Visit Provider Family Medicine
DX: E03.9 Hypothyroidism, unspecified (principal)
CPT/HCPCS: 36415; 84439; 84443; 84481

== ENCOUNTER → 2019-02-11 10:18 | Outpatient (CLI) | payer MEDICARE, OTHER, SELFPAY ==
[2019-02-11 11:16] LABS: Cholesterol 194 mg/dL (140-199); Glucose 84 mg/dL (80-110); HDL Cholesterol 72 mg/dL (40-60); LDL Cholesterol Calculated 104 mg/dL (<100); Triglycerides 90 mg/dL (35-150)
== END ==
PROVIDERS: PCP Family Medicine; Visit Provider Family Medicine
DX: Z13.1 Encounter for screening for diabetes mellitus (principal); Z13.220 Encounter for screening for lipoid disorders
CPT/HCPCS: 36415; 80061; 82947

== ENCOUNTER → 2019-03-09 13:43 | Outpatient (CLI) | payer MEDICARE, OTHER, SELFPAY | PROVIDERS: PCP Family Medicine; Visit Provider Family Medicine | DX: Z78.0 Asymptomatic menopausal state (principal); Z90.722 Acquired absence of ovaries, bilateral; E04.9 Nontoxic goiter, unspecified | CPT/HCPCS: 77080; 77081 ==

== ENCOUNTER 2019-04-17 20:46 | Emergency (ER) | payer MEDICARE, OTHER, SELFPAY ==
[2019-04-17 21:00] VITALS: BP 150/80; PULSE 88; RESP 20; TEMP 36.8; O2SAT 100; BMI 28.5
[2019-04-17 22:00] VITALS: PULSE 80
[2019-04-17] MEDS: HYDROCODONE/ACET 5/325 TABLET 1 TAB PO (22:02)
[2019-04-17 22:06] VITALS: BP 132/59; PULSE 84; RESP 16; O2SAT 98
--- NOTE | 2019-04-17 22:21 | ED_ITS ---
HPI - Extremity Problem General Chief complaint: Extremity Problem,Nontraumatic Stated complaint: right leg pain Time Seen by Provider: 04/17/19 21:28 Source: patient Mode of arrival: ambulatory Limitations: no limitations History of Present Illness HPI Narrative: The patient has suffered a right leg injury about 2 hours ago. She stood from a chair and turned. She felt a pop in her right leg, distal to the right knee. She has recurrence of pain with motion. She has extreme pain with standing and moving. There is no numbness or weakness in the right leg. She has a prior history of right knee DJD. She has a history of spinal stenosis and associated surgery due to neuropathy. She also has multiple lower extremity orthopedic procedures. The current event was an acute event where she felt a popping and associated pain. She clearly identifies the pain distal to the knee. Associated with the care of the right knee DJD, she took a dose of prednisone yesterday. Although using steroids, seemingly frequently, she has no clear history of weakness/myopathy. Related Data Home Medications Medication Instructions Recorded Confirmed Loratadine (Claritin) 10 mg PO Q AM #0 04/21/07 04/16/19 Previous Rx's Medication Instructions Recorded estradiol 1 mg tablet 1 mg PO QDAY #90 tab 04/16/18 sulfasalazine 500 mg tablet 1,500 mg PO TID #810 tab 04/16/18 levothyroxine 137 mcg capsule 137 mcg PO DAILY #90 cap 10/02/18 metronidazole 0.75 % topical cream 1 applictn TOPICAL BID #45 gram 10/22/18 doxycycline hyclate 50 mg capsule 100 mg PO DAILY #60 cap 01/09/19 nortriptyline 10 mg capsule 10 mg PO BID #180 cap 01/09/19 pseudoephedrine ER 240 mg 240 mg PO DAILY PRN #90 tab 01/09/19 tablet,extended release 24 hr acyclovir 400 mg tablet 400 mg PO TID PRN #30 tab 04/08/19 hydrocodone 5 mg-acetaminophen 325 1 tab PO Q6HP PRN #20 tab 04/16/19 mg tablet prednisone 10 mg tablet 20 mg PO DAILY #20 tab 04/16/19 hydrocodone-acetaminophen [[place]] 1 tab PO Q4-6H PRN #10 tab 04/17/19 Allergies Allergy/AdvReac Type Severity Reaction Status Date / Time fentanyl Allergy Unknown HIVES Verified 04/16/19 12:03 clarithromycin [From BIAXIN] AdvReac Unknown DIAHRREA Verified 04/16/19 12:03 ketorolac AdvReac Unknown STOMACH Verified 04/16/19 12:03 BLEEDING Review of Systems Review of Systems ROS Unobtainable: All systems reviewed & are unremarkable except as noted in HPI and below Constitutional Denies lethargy and Denies weakness Musculoskeletal Reports as per HPI, Denies numbness, Denies stiffness and Denies tingling Comments: Right leg pain Integumentary/Breasts Denies pruritus, Denies erythema, Denies rash and Denies wounds Neurologic Denies numbness, Denies tingling and Denies weakness [facility] Medical History Ankle pain (Chronic ~2001) Chronic back pain (Chronic ~2012) GI bleeding (Chronic ~2006) Hearing deficit (Chronic ~1997) Herpes simplex virus (HSV) infection (Chronic ~1998) History of frequent headaches (Chronic ~1967) Hypothyroidism (Chronic ~2001) Rosacea (Chronic ~2012) Seasonal allergies (Chronic ~1999) Spinal stenosis (Chronic ~1989) Tinnitus (Chronic ~2007) Ulcerative colitis (Chronic ~1976) Urinary incontinence (Chronic ~2007) Abnormal Pap smear of cervix (Resolved) Acne (Resolved) Chickenpox (Resolved ~1954) Measles (Resolved ~1955) Migraines (Resolved) Mumps (Resolved ~1955) Surgical procedure planned (Resolved ~2009) Surgical History Status post surgical manipulation of ankle joint (Resolved ~2001) Status post surgical manipulation of ankle joint (Resolved ~2009) Anesthesia (Inactive) History of hip replacement (~2002) History of hip replacement (~2002) Status post arthroscopy (~1987) Status post hysterectomy (~1993) Status post rotator cuff repair (~2006) Status post tonsillectomy and adenoidectomy (~1966) Status post tubal ligation (~1983) Family History Brother Age: 65 Essential hypertension Father Heart disease Essential hypertension High cholesterol Grandmother Parkinson's disease Mother Essential hypertension Grandfather No problems noted. Grandfather No problems noted. Social History Smoking Status: Never smoker alcohol intake: current Family History Brother Age: 65 Essential hypertension Father Heart disease Essential hypertension High cholesterol Grandmother Parkinson's disease Mother Essential hypertension Grandfather No problems noted. Grandfather No problems noted. Social History Smoking Status: Never smoker alcohol intake: current Exam Initial Vital Signs Initial Vital Signs: Vital Signs Temperature 98.3 F 04/17/19 21:00 Pulse Rate 88 04/17/19 21:00 Respiratory Rate 20 04/17/19 21:00 Blood Pressure 150/80 H 04/17/19 21:00 Pulse Oximetry 100 04/17/19 21:00 Const General: cooperative and well developed Nutritional Appearance: well nourished Orientation: alert, awake and oriented x3 Skin General: no rashes or lesions noted Neuro General: alert and oriented x3 Speech: speech normal Motor: muscle tone normal throughout Sensory Exam: no sensory deficits noted Extrem General: full ROM and no pedal edema Other: She has focal tenderness in the proximal lateral aspect of the gastrocnemius muscle. There is a palpable defect, likely representing a muscle tear. Pain is exacerbated with flexion extension of the knee or the ankle, at the same site. She has no muscle weakness in the lower extremity. The right foot is neurovascularly intact. The right dorsalis pedis pulse is intact. Procedures Orthopedic Splinting/Casting Injury #1: Side: right Lower Extremity Injury Location: knee Lower Extremity Immobilizer: knee immobilizer Post splinting neuro exam: intact Post splinting vascular exam: intact Placed by: Nursing Course Course Narrative: The patient was given hydrocodone for the pain. She was placed in a knee immobilizer. Crutches were offered but declined. She has a limp with the immobilizer, but is ambulatory. Orders Ordered: Discontinued Medications Hydrocodone Bitart/Acetaminophen ([place] 5/325) 1 tab PO NOW ONE Stop: 04/17/19 21:58 Last Admin: 04/17/19 22:02 Dose: 1 tab Hydrocodone Bitart/Acetaminophen (Vicodin Prepack) 1 bottle MISC SEEINSTR ONE Stop: 04/17/19 22:06 Last Admin: 04/17/19 22:39 Dose: 1 bottle Vital Signs - 8 hr 04/17/19 21:00 04/17/19 22:00 04/17/19 22:06 Temperature 98.3 F Pulse Rate 88 84 Pulse Rate [Right Dorsalis Pedis] 80 Respiratory Rate 20 16 Blood Pressure 150/80 H Blood Pressure [Left Arm] 132/59 L Pulse Oximetry 100 98 Discharge Plan Departure Patient Disposition: Home Clinical Impression: Gastrocnemius muscle tear Qualifiers: Encounter type: initial encounter Laterality: right Qualified Code(s): S86.111A - Strain of other muscle(s) and tendon(s) of posterior muscle group at lower leg level, right leg, initial encounter Discharge Date/Time: 04/17/19 22:35 Interventions: ED Discharge Assessment Last Done: 04/17/19 22:35 Instructions: Calf Muscle Strain Activity Restrictions/Additional Instructions: Use the immobilizer as needed to limit motion at the injury site. Wean from the immobilizer as tolerated. Although you will be out of the immobilizer in a few days, the pain will persist for several weeks as we discussed. Hydrocodone every 4 hours for pain as described. Follow-up with her doctor next week to re-evaluate. Return the ER if necessary. Prescriptions: New hydrocodone-acetaminophen [[place]] 5-325 mg tablet 1 tab PO Q4-6H PRN (Reason: pain) Qty: 10 RF: 0 No Action Loratadine (Claritin) 10 mg PO Q AM Qty: 0 RF: 0 levothyroxine 137 mcg capsule 137 mcg PO DAILY Qty: 90 RF: 3 metronidazole 0.75 % cream 1 applictn Topical BID Qty: 45 RF: 1 acyclovir 400 mg tablet 400 mg PO TID PRN (Reason: HSV) Qty: 30 RF: 3 nortriptyline 10 mg capsule 10 mg PO BID Qty: 180 RF: 3 pseudoephedrine HCl 240 mg tablet extended release 24 hr 240 mg PO DAILY PRN (Reason: nasal congestion) Qty: 90 RF: 1 doxycycline hyclate 50 mg capsule 100 mg PO DAILY Qty: 60 RF: 0 estradiol 1 mg tablet 1 mg PO QDAY Qty: 90 RF: 3 sulfasalazine [Azulfidine] 500 mg tablet 1,500 mg PO TID Qty: 810 RF: 3 hydrocodone-acetaminophen 5-325 mg tablet 1 tab PO Q6HP PRN (Reason: pain) Qty: 20 RF: 0 prednisone 10 mg tablet 20 mg PO DAILY Qty: 20 RF: 0 Referrals: Nilda Salmeron DO [Primary Care Provider] -
[2019-04-17] MEDS: HYDROCODONE/ACET 5/325 PREPACK 1 BOTTLE MISC (22:39)
--- NOTE | 2019-04-17 22:39 | PC.NURSE ---
Pt declined crutches, Dr meek.
--- NOTE | 2019-04-17 22:41 | PC.NURSE ---
PT states right leg injury at 1830 after stood from a chair and turned, felt a pop in her right leg, distal to the right knee. Pt states she has had chronic pain issues with her right leg, denies numbness or increased weakness. Hx of right knee DJD and spinal stenosis. She took a dose of prednisone yesterday.
== END 2019-04-17 22:35 | disposition home or self-care (01) ==
PROVIDERS: Emergency Provider Emergency Medicine; PCP Family Medicine
DX: S86.111A Strain of other muscle(s) and tendon(s) of posterior muscle group at lower leg level, right leg, initial encounter (principal)
CPT/HCPCS: 99283

== ENCOUNTER → 2019-09-15 14:53 | Outpatient (CLI) | payer MEDICARE, OTHER, SELFPAY ==
--- NOTE | 2019-09-15 15:02 | DI.ECHO.S_ITS ---
[facility]---------+ [facility] +---------+ : : [address] [place] : : : : [id number] : : : : Phone: [phone]---------+ Echocardiogram Report + + :Name: BRANDI SILVESTRE Study Date: 09/15/2019 Height: 67 in : :[facility] Weight: 182 lb : : Gender: Female BSA: 1.9 m2 : :: 1950 Age: 69 yrs BP: 152/86 mmHg: :Reason For Study: MURMUR : : Performed By: Tem Staff : :Referring: NEVILLE MYERS : + + Interpretation Summary 1) Normal left ventricular thickness, size, wall motion, and systolic function (EF 65-70%). 2) Normal right ventricular size and function. 3) No significant valvular abnormalities. 4) Hyperdynamic state present (cardiac output 10.2L/min). 5) Hypertension present during the study (BP 152/86mmHg). 6) No prior Echo available for comparison. Procedure: A two-dimensional transthoracic echocardiogram with color flow and Doppler was performed. The study quality was technically adequate. There is no prior echocardiogram noted for this patient. The patient was in a tachycardic rhythm during the exam. Left Ventricle: The left ventricle is normal in size. There is mild concentric left ventricular hypertrophy. The ejection fraction is estimated to be 65-70%. Left ventricular systolic function is normal. Left ventricular wall motion is normal. Right Ventricle: The right ventricle is normal in size and function. Atria: The left atrium is mildly dilated. Right atrial size is normal. The interatrial septum is intact with no evidence for an atrial septal defect. Mitral Valve: The mitral valve is normal in structure and function. There is no mitral regurgitation noted. Aortic Valve: The aortic valve is trileaflet. The aortic valve opens well. There is no aortic valve stenosis. No aortic regurgitation is present. Tricuspid Valve: The tricuspid valve is normal in structure and function. There is trace tricuspid regurgitation. Pulmonary artery pressures cannot be estimated because of the lack of a measurable TR jet velocity. Pulmonic Valve: The pulmonic valve is not well visualized. Great Vessels: The aortic root is normal size. The ascending aorta could not be visualized. The pulmonary artery is normal size. The inferior vena cava was not well visualized. Pericardium/ Pleura There is no pericardial effusion. There is no pleural effusion. MMode/2D Measurements & Calculations LVIDd: 3.7 cm LVOT diam: 2.0 cm LVIDs: 2.5 cm Ao root diam: 2.8 cm FS: 31.6 % EPSS: 0.38 cm IVSd: 1.2 cm LVPWd: 1.3 cm LV colvin. diameter/BSA (cm/m^2): 1.9 LV sys. diameter/BSA (cm/m^2): 1.3 LA A2 area: 22.3 cm2 RA long axis: 4.1 cm LA A4 area: 17.6 cm2 RA area: 9.5 cm2 LA length (vol): 4.7 cm RA vol: 18.8 ml LA vol: 71.2 ml RA : 9.7 ml/m2 LA vol index: 36.7 ml/m2 TAPSE: 2.7 cm Doppler Measurements & Calculations Ao V2 max: 177.6 cm/sec LVOT Max Willy: 156.5 cm/sec Ao V2 mean: 119.7 cm/sec LV V1 max P.8 mmHg Ao max P.6 mmHg LV V1 VTI: 32.5 cm Ao mean P.6 mmHg PER(I,D): 2.9 cm2 Ao V2 VTI: 36.5 cm PER(V,D): 2.9 cm2 sev ratio: 0.89 PER indexed to BSA (cm^2/m^2): 1.5 MV E max willy: 65.8 cm/sec SV(LVOT): 105.4 ml MV A max willy: 96.8 cm/sec MV E/A: 0.68 Med Peak E' Willy: 11.2 cm/sec E/E' med: 5.9 MV dec time: 0.22 sec Reading Physician:04:23 PM
[2019-09-15 16:52] LABS: Add Manual Diff / Slide Review NO; Basophils Absolute Auto 100 /uL (0-100); Basophils Percent Auto 0.9 % (0-2); Eosinophils Absolute Auto 100 /uL (0-450); Eosinophils Percent Auto 1.1 % (2-4); Hematocrit 39.8 % (36-46); Hemoglobin 13.5 g/dL (12.0-16.0); Lymphocytes Absolute Auto 2800 /uL (1100-4500); Mean Corpuscular Hemoglobin 33.4 PG (26-34); Mean Corpuscular Volume 98.4 fL (80-100); Monocytes Absolute Auto 600 /uL (0-900); Monocytes Percent Auto 8.2 % (3-14); Neutrophils Absolute Auto 3400 /uL (1500-7000); Neutrophils Percent Auto 48.8 % (50-75); Platelet Count 319 X10^3/uL (150-400); Red Blood Cell Count 4.05 X10^6/uL (4.0-5.2); Red Cell Distribution Width 13.4 % (11.6-14.8); White Blood Cell Count 6.9 X10^3/uL (4.5-11.0)
[2019-09-15 17:05] LABS: Carbon Dioxide 35 mmol/L (22-32); Chloride 99 mmol/L (98-107); HEMOLYSIS < 15 (0-50); Potassium 4.8 mmol/L (3.4-5.1); Sodium 139 mmol/L (137-145)
== END ==
PROVIDERS: Family Provider Orthopaedic Surgery; PCP Family Medicine; Visit Provider Family Medicine
DX: Z01.818 Encounter for other preprocedural examination (principal); Z01.812 Encounter for preprocedural laboratory examination; R07.89 Other chest pain; R01.1 Cardiac murmur, unspecified
CPT/HCPCS: 36415; 80051; 85025; 93005; 93306

== ENCOUNTER 2019-10-08 12:47 | Inpatient (IN) | payer MEDICARE, OTHER, SELFPAY ==
[2019-09-28 12:59] VITALS: BMI 28.7
[2019-10-07] VITALS (31 sets, daily range): BP systolic 107–156; BP diastolic 50–94; PULSE 18–94; RESP 4–19; TEMP 36.3–36.8; O2SAT 24–100; BMI 28.5
--- NOTE | 2019-10-07 06:53 | DI.RAD.S_ITS ---
PROCEDURE: XR KNEE RT 1TO2V INDICATIONS: post op films TECHNIQUE: 2 view(s) of the knee acquired. COMPARISON: [facility], KYLER, XR KNEE RT 3V, 09/13/2018, 17:37. [facility], KYLER, KNEE 3V RIGHT, 04/18/2017, 11:25. FINDINGS: Bones: Patient is status post knee joint arthroplasty. Hardware components are in expected positions. Visualized bony structures are intact. Soft tissues: Overlying postoperative changes are noted. IMPRESSION: Normal alignment after right total knee arthroplasty. Dictated by: Javan Dale M.D. on 10/07/2019 at 12:58 Approved by: Javan Dale M.D. on 10/07/2019 at 12:59
[2019-10-07] MEDS: PREGABALIN 75 MG CAPSULE PO (09:05)
[2019-10-07] MEDS: ACETAMINOPHEN 325 MG TABLET 975 MG PO (09:05)
[2019-10-07] MEDS: LACTATED RINGERS 1,000 ML 42 ML IV ×2 (09:15→13:09)
--- NOTE | 2019-10-07 09:19 | PM.PREOP ---
Pre-operative Note Interval Note History & Physical reviewed/Exam performed by Physician: Yes Changes to H&P: No
--- NOTE | 2019-10-07 09:19 | PM.OP.1 ---
Operative Date/Time/Diagnoses Date of procedure: 10/07/19 Time of procedure: 12:04 Pre-op diagnosis: Right knee osteoarthritis Post-op diagnosis: same Procedure & Clinicians Procedure: Right total knee arthroplasty Same procedure as scheduled: Yes Indications: The patient presents today for total knee arthroplasty after failure of conservative treatment. The nature of the procedure including the risks and benefits, alternatives, postoperative course and expected outcome were discussed and all questions answered. Consent was obtained. Operative site confirmed and marked. Surgeon: Fabricio Rose Illuminating Engineer: Cristobal Mckinney Anesthesia Type: General, Peripheral nerve block and Local Operative Notes Findings: The patient had severe osteoarthritis with a relatively mild valgus deformity with a significant flexion contracture. Her preoperative range of motion was approximately 30-95 degrees. A +4 cut was made initially on the femoral component. 10 mm was initially taken from the less affected medial side. The knee was still somewhat tight in both flexion and extension. Another 2 mm was then cut from the tibia which then nicely balanced the knee in flexion and extension and allowed for full extension. She was left slightly looser than normal medial laterally to ensure that she regains her motion. Closure Type: primary Specimen(s): none sent Prosthetic devices, grafts, tissues, transplants, or devices: Conklin and Nephmax Jewell BCS: [xx] femoral component, [xx] tibial component, [xx] mm BCS polyethylene tray and [xx] mm round patella Procedure in detail: The patient was taken to the operative suite and placed under general anesthesia with an adductor nerve block. The patient was given prophylactic antibiotics prior to surgery. The patient was also given tranexamic acid, 1 g, just prior to surgery for postoperative hemostasis. The lateral knee was prepped and the joint injected with 20 mL of 1% Lidocaine with epinephrine. The knee was then prepped and draped in usual sterile fashion. The leg was exsanguinated with an Esmarch dressing and the tourniquet raised to 250 torr. A 15 cm anterior incision was made. Next a medial trivector arthrotomy was made. The extensor mechanism was marked to ensure accurate repair. Initial exposing dissection was carried out medially and laterally. The knee was then flexed and the intramedullary femoral guide mahamed placed. The distal femoral cut was made in 6 ? of valgus at the + 4 position. The femoral size was measured and the appropriate cutting block was then placed and the anterior, posterior and chamfer cuts made. The intramedullary tibial alignment mahamed was then placed. The guide was set to remove approximately 10 mm from the less affected medial side. The proximal tibial cut was then made with an oscillating saw. All meniscus and bony debris was then removed. Posterior femoral osteophytes removed with a curved osteotome. Flexion extension gaps were checked. The knee was still tight both in flexion and extension. Another 2 mm of bone was removed from the tibia which nicely balanced flexion extension gaps. No specific balancing was required other than routine exposure and removal of osteophytes. The soft tissues were then injected with a combination of 20 mL of half percent Marcaine with epinephrine and 20 mL of Exparel. The trial components were then placed. The knee was then extended and the patellar thickness was measured and a cut made removing approximately 9 mm of bone. The patella was then sized and drilled. Some excess lateral bone was excised and the patellofemoral ligament released. The knee easily went into full extension and flexed beyond 125?.. There was excellent medial-lateral balance throughout motion although patient was left just slightly loose given her severe loss of motion preoperatively. Patellar tracking was excellent. The trial components were removed and the knee was cleansed with Pulsavac irrigation and dried. The final components were cemented with high viscosity vacuum mixed bone cement with antibiotics. The joint was filled with a dilute Betadine solution. The knee was held in extension and the patellar clamped until the cement was adequately cured. The knee was then irrigated. The extensor mechanism was closed with 5 interrupted #1 Vicryl sutures and a running Quill suture at approximately 90 degrees of flexion. The joint was then injected with a combination of 1 g of tranexamic acid and 20 mL of quarter percent Marcaine with epinephrine. The subcutaneous tissue was closed with 2 0 Vicryl. The skin was closed with jerrell and surgical adhesive. An Aquacel dressing and Ra wrap were then applied. The patient tolerated the procedure well and was returned to recovery room in good condition. Complications: none Post-operative Condition: stable Disposition: PACU Plan for aftercare: [facility] protocol for total knee arthroplasty.
[2019-10-07] MEDS: MIDAZOLAM 2 MG/2 ML VIAL IV (10:05)
--- NOTE | 2019-10-07 10:14 | P.PCN_ITS ---
Procedures Date/Time Date of procedure: 10/07/19 Time of procedure: 10:15 Nerve Block Time out performed: Yes Local anesthetic used: lidocaine 1% (w/ epi 5mL + 15mL 0.5opivacaine) Location of anesthetic used: adductor canal Amount of anesthesia used (mL): 20 Nerve blocks: femoral (adductor canal) Procedure successful: Yes Patient tolerated procedure: well Complications: none Additional comments: Adductor canal block for post operative pain management. R/B discussed. Site marked. Consent verified/signed. Standard ASA monitors. NC O2. Chloroprep. Sterile technique. Femoral A/V/N identified medial mid thigh with US. Lidocaine skin wheal. 100mm x 21g Pajunk needle advanced with in-plane US guidance. Negative aspiration. LA injected medial and lateral to femoral artery. Negative aspiration throughout. No pain, no paresthesia with injection. VSS. Tolerated well. To OR.
--- NOTE | 2019-10-07 10:15 | SUR.PREOP ---
Block start time [0958] . Monitoring initiated and maintained throughout procedure. Oxygen and medications given per anesthesiologist instructions. Patient remained stable throughout procedure, no adverse reactions noted. Block end time [1010].
[2019-10-07] MEDS: CEFAZOLIN 2 GM/100 ML FROZ.PIGGY IV ×2 (10:30→18:28)
--- NOTE | 2019-10-07 10:59 | SUR.OPER ---
Supine on padded OR bed. Pillow under head, arms secured on padded armboards <90 degree abduction. Safety belt across torso. Non-operative leg secured with tape over blanket over lower leg. Operative leg secured in DeMayo/Bill positioner. Foam padded brace at thigh of operative leg.
[2019-10-07] MEDS: LIDOCAINE 1% W/EPI 20 ML INJ (11:07)
[2019-10-07] MEDS: BUPIVACAINE 0.25% W/ EPI (PF) 40 ML, BUPIVACAINE LIPOSOME 266 MG, SODIUM CHLORIDE 0.9% ... INJ (11:08)
[2019-10-07] MEDS: BUPIVACAINE 0.25% W/ EPI (PF) 20 ML, TRANEXAMIC ACID 1,000 MG, SODIUM CHLORIDE 0.9% 10 ML INJ (11:09)
[2019-10-07] MEDS: TRANEXAMIC ACID 1,000 MG VIAL 1000 MG INJ (11:10)
[2019-10-07] MEDS: SODIUM CHLORIDE IRRIG SOLUTION 250 ML, POVIDONE-IODINE SPONGE STICKS 1 APPLIC IRR (11:10)
[2019-10-07] MEDS: HYDROMORPHONE 2 MG INJ IV ×4 (12:25→12:40)
[2019-10-07] MEDS: LORazepam 2 MG/ML INJ 0.25 MG IV ×2 (12:30→12:40)
[2019-10-07] MEDS: hydrOXYzine 50 MG/ML INJ 25 MG IM (12:51)
--- NOTE | 2019-10-07 13:38 | SUR.PHASEI ---
1331 assumed care of pt, pt very hard to arouse. 02 increased to 5/l per simple 02 mask.
--- NOTE | 2019-10-07 13:41 | SUR.PHASEI ---
Reported back SRINIVASAN Pyle.
--- NOTE | 2019-10-07 14:25 | SUR.PHASEI ---
pt RR continues to be between 5-10 per minute anesthesia is aware and we will continue to monitor patient
[2019-10-07] MEDS: NALOXONE 0.4 MG/ML VIAL 0.1 MG IV ×2 (15:30→15:32)
--- NOTE | 2019-10-07 16:29 | SUR.PHASEI ---
pt was given narcan x 2 doses with desired result of responsive to voice. see MAR. However, pt also c/o return of r knee and leg pain. now resting comfortably and states tolerating pain
[2019-10-07] MEDS: LACTATED RINGERS 1,000 ML 125 ML IV (18:28)
[2019-10-07] MEDS: HYDROCODONE/ACET 5/325 TABLET 2 TAB PO (19:39)
[2019-10-07] MEDS: ESTRADIOL 1 MG TABLET PO (21:23)
[2019-10-07] MEDS: METHOCARBAMOL 500 MG TABLET PO (21:23)
[2019-10-07] MEDS: NORTRIPTYLINE 10 MG CAPSULE PO (21:23)
[2019-10-07] MEDS: sulfaSALAzine 500 MG TABLET 1500 MG PO (21:24)
[2019-10-07] MEDS: HYDROMORPHONE 2 MG TABLET PO (21:28)
--- NOTE | 2019-10-07 22:31 | PC.NURSE ---
Ирина shift note: Received patient from PACU with Lashanda RN, awake, alert and pleasant. Sleepy when not stimulated, however arouses very easily. Weaned to RA, 98% while awake. Tara at bedside providing supportive care. Respiratory rate 16/min. NO s/sx of respiratory distress or airway compromise. Very talkative. Up out of bed to BSC, voiding. Oriented to room, environment, and plan of care. Call light within reach.
[2019-10-08] VITALS (8 sets, daily range): BP systolic 112–149; BP diastolic 61–81; PULSE 85–116; RESP 15–18; TEMP 36.6–39.4; O2SAT 91–97
[2019-10-08] MEDS: HYDROCODONE/ACET 5/325 TABLET 2 TAB PO ×3 (00:13→08:26)
--- NOTE | 2019-10-08 01:52 | PC.NURSE ---
Addendum entered by Willa Do R.N. 10/08/19 05:27: Pt reports pain at right knee not improved after 2 tabs norco. Offered ice pack, CENTRAL SUPPLY TECHNICIAN SUPERVISOR assist to BSC, repostioned with pillows, allowed time for pt to move RLE in bed. Then dilaudid 2mg PO tablet given per pt report pain still not relieved at rates 9/10. CMS intact, no increased swelling at RLE. Will reassess for response to pain medication. Original Note: Pt noted to desat to 88% on room while asleep, pt noting as well as her o2 sat monitor beeps. Titrated o2 per order, pt on 2L NC while asleep to maintain sat >90%. Pt denies SOB at rest, easily aroused, no oversedation. Lung sounds clear.
[2019-10-08] MEDS: CEFAZOLIN 2 GM/100 ML FROZ.PIGGY IV (02:52)
[2019-10-08] MEDS: LACTATED RINGERS 1,000 ML 125 ML IV (02:53)
[2019-10-08] MEDS: HYDROMORPHONE 2 MG TABLET PO ×2 (05:15→09:26)
[2019-10-08] MEDS: LEVOTHYROXINE 137 MCG TABLET PO (05:16)
[2019-10-08 06:11] LABS: Hemoglobin 11.2 g/dL (12.0-16.0)
[2019-10-08] MEDS: sulfaSALAzine 500 MG TABLET 1500 MG PO ×2 (08:26→20:18)
[2019-10-08] MEDS: NORTRIPTYLINE 10 MG CAPSULE PO ×2 (08:26→20:18)
[2019-10-08] MEDS: LORATADINE 10 MG TABLET PO (08:26)
--- NOTE | 2019-10-08 10:08 | PM.PNPO.1 ---
Subjective Subjective Date Patient Seen: 10/08/19 Time Patient Seen: 10:09 Interval history: Pain has been moderate to severe. Denies fever chills. No nausea vomiting. She has been able to get up to the bedside commode. Patient has a few steps into her 5th wheel or an alternative would be a caregiver with a condo however they have [address]. Exam Vital Signs (past 8 hours): - 10/08/19 04:00 10/08/19 07:55 Temperature 98.5 F 98.0 F Pulse Rate 91 H 85 Respiratory Rate 18 16 Blood Pressure 114/61 112/63 Pulse Oximetry 96 97 Oxygen Delivery Method Room Air Oxygen Flow Rate 2 Narrative Exam Narrative: 69-year-old female sitting at bedside in no apparent distress. Right knee dressing is clean, dry and intact. Right leg is warm and dry. Neurovascular status is intact to the right lower extremity. Objective Labs Result Diagrams: 10/08/19 05:40 Labs: Laboratory Results - last 24 hr 10/08/19 05:40 Hgb 11.2 L Hct 33.0 L Assessment & Plan Post-op Postoperative Procedures: Procedures Operation Date: 10/07/19 10:45 Actual Procedures Side Surgeon p Total Knee Arthroplasty Right Fabricio Rose MD Postop day 1 status post right total knee arthroplasty. Mobilize with physical therapy. Work on pain control. Likely discharge home in the next 1 or 2 days.
--- NOTE | 2019-10-08 11:31 | CM.DANOTE ---
DCP: Case received, EMR reviewed and met with patient. Introduced self and role. Was able to meet with patient in her room. Life partner, Tara, was also present. Obtained baseline health, activity, as well as living situation from patient. DCP assessment completed with information currently available. Patient is a 69 year old female who admitted yesterday morning to the care of the orthopedic team. PCP: Dr. Salmeron. Payer: confirmed: Medicare/[facility] PPO. Patient came to the hospital for a surgical procedure. She had right total knee arthroplasty. Patient has had history of right knee osteoarthritis. Patient stated, she has had other surgeries as well, before. Met with patient, and significant other, Tara. Patient confirmed that she is from [place], and has been living in her 5th wheel. She mentioned that her partner's condo is close by, but there are several stairs to get to the main entrance. She has been using a cane prior to her surgery. She is concerned that she is having so much pain. She has been up to the commode, but will be working with P.T. P: DCP to continue to follow closely. Will see how she does with P.T. Patient has outpatient P.T. set up with [facility], and she is familiar with David, the intelligence analyst. Chloé Wilkinson RN/Financial Operations Analyst
[2019-10-08] MEDS: HYDROMORPHONE 2 MG TABLET 4 MG PO ×2 (11:43→17:44)
--- NOTE | 2019-10-08 12:08 | PT.IIE ---
Current Diagnoses Bilateral primary osteoarthritis of knee (10/07/19) Surgery Performed Operation Date: 10/07/19 10:45 Actual Procedures p Total Knee Arthroplasty(Right) - Fabricio Rose MD Surgical History (Last Updated 09/28/19 @ 13:23 by Maggi Carpenter RN) Anesthesia (Inactive) History of hip replacement (~2002) History of hip replacement (~2002) History of lumbar surgery (Acute ~2009) Status post arthroscopy (~1987) Status post hysterectomy (~1993) Status post rotator cuff repair (~2006) Status post surgical manipulation of ankle joint (Resolved ~2001) Status post surgical manipulation of ankle joint (Resolved ~2009) Status post tonsillectomy and adenoidectomy (~1966) Status post tubal ligation (~1983) Medical History (Last Updated 09/28/19 @ 13:24 by Maggi Carpenter RN) Abnormal Pap smear of cervix (Resolved) Acne (Resolved) Ankle pain (Chronic ~2001) Cat bite involving extremity (Inactive) Chickenpox (Resolved ~1954) Chronic back pain (Chronic ~2012) GI bleeding (Chronic ~2006) Hearing deficit (Chronic ~1997) Herpes simplex virus (HSV) infection (Chronic ~1998) History of frequent headaches (Chronic ~1967) Hypothyroidism (Chronic ~2001) Measles (Resolved ~1955) Mgr NOS wo ntrc w st mgr (Inactive 05/18/04) Migraines (Resolved) Mumps (Resolved ~1955) Murmur, cardiac (Acute) Rosacea (Chronic ~2012) Seasonal allergies (Chronic ~1999) Spinal stenosis (Chronic ~1989) Surgical procedure planned (Resolved ~2009) Tinnitus (Chronic ~2007) Ulcerative colitis (Chronic ~1976) Urinary incontinence (Chronic ~2007) Physical Therapy Inpatient Evaluation/Re-Eval M1 PT/OT-IP Prior Functional Status Start: 10/08/19 09:02 Freq: NEEDED Status: Active Protocol: Document 10/08/19 11:42 AW (Rec: 10/08/19 12:08 AW [email or web address]) Medical Review Prior Functional Status Medical History Reviewed Yes Communication WNL Mobility and Gait Pt has been ambulating with a SPC since March 2019. Activities of Daily Living and IADL's Pt reports she needs occasional help with showering to wash her back, but is otherwise independent with ADL 's. Prior Functional Level (Other details) Pt reports her last fall occurred a year ago when she tripped in a parking lot and suffered a concussion. No falls since that time. Social History Household Members significant other Living Arrangements RV Number of Floors (Floors) One Floor Number of Stairs To Enter/Railing? At 5th wheel: one 6.5 step + three 9.5 steps to enter. Railing is on the left side going up. Once inside, she has two 9 steps to enter her bathroom and one narrow 9 step to access her bed. At her partner's condo: 17 steps to enter with unilateral rail. Details of home environment below refer to her 5th wheel where she intends to stay for the first week upon discharge. Home Environment High Toilet,Walk in Shower, Narrow Doors Home Equipment Front Wheel Walker,Straight Cane Employment Status Retired Additional Social History Comment Pt lives alone but her partner stays overnight with her at her 5th wheel. Her partner lives nearby in a condo which has 17 steps to enter. The tub /shower at the condo has a shower seat she can use. M2 PT-IP Current Condition Start: 10/08/19 09:02 Freq: NEEDED Status: Active Protocol: Document 10/08/19 11:42 AW (Rec: 10/08/19 12:08 AW [email or web address]) Physical Therapy Current Condition Current Condition Evaluation Date 10/08/19 Treatment Diagnosis s/p R TKA; impaired mobility Onset Date 10/07/19 Weight Bearing Status Weight Bearing Status Weight Bear as Tolerated M3 PT-IP Subjective Start: 10/08/19 09:02 Freq: NEEDED Status: Active Protocol: Document 10/08/19 11:42 AW (Rec: 10/08/19 12:08 AW [email or web address]) Subjective Physical Therapy Visit Type Type Initial Evaluation Visit Start Time 10:08 Visit Stop Time 11:09 Total Visit Minutes 61 Notes Pt's partner, Tara, present for interview. Number of [employer] Visits 0 Physical Therapy Visit Comments Patient Comments I'm in so much pain. I wasn't expecting this. Patient Goals To go home to her 5th wheel with her partner's assistance Therapy Pain Assessment Pain When Pain Assessed During Mobility Pain Present Pain Present Pain Reported Location Right Knee Intensity 10 Pain Management Techniques Apply Cold,Re-positioning, Timing of Activity with Medications M4 PT-IP Mobility and Gait Start: 10/08/19 09:02 Freq: NEEDED Status: Active Protocol: Document 10/08/19 11:42 AW (Rec: 10/08/19 12:08 AW [email or web address]) PT-Bed Mobility Assessment Supine to Sit Supine to Sit Minimal Assistance Sit to Supine Sit to Supine Minimal Assistance Scooting Scooting to Edge of Bed Standby Assistance Scooting Up and Down in Bed Standby Assistance PT-Transfer Assessment Sit to and From Stand Sit to and from Stand Minimal Assistance,1 Person Assistance,Use of Upper Extremities Equipment Transfer Assistive Device Gait Belt,Front Wheeled Walker Orthotic/Prosthetic Devices or Brace: No Transfers Transfer Destination Chair,Bedside Commode Transfer Technique pt ambulated with FWW to chair ; stand step pivot chair to [facility] Transfer Ability Level of Assist Contact Guard Assistance,1 Person Assistance,Use of Upper Extremities Comments Mobility Comments Pt encountered sitting up EOB. She transferred back to supine with min A x 1 to support her operative leg and then also required min A x 1 to return to sitting EOB. Sit to stand required min A x 1 with pt needing support while moving her hands from the bed to the FWW. Pt transferred to the chair CGA. Stand step pivot transfer to BS and back to chair required min A x 1. Pt was positioned in the chair , ice packs in place, call light and all needs within reach. Gait Assessment Gait Gait Assistance Required: Contact Guard Assist Distance (Feet) 15 Able to Maintain Weight Bearing Status Yes During Gait Assistive Devices Assistive Device Gait Belt,Front Wheeled Walker Orthotic/Prosthetic Devices or Brace: No Gait Deviations General Gait Pattern Antalgic,Decreased Stride Length,Decreased Feet Clearance,Flexed Trunk,Step-to Gait Factors Limiting Gait Function Factors Limiting Gait Function Decreased Activity Tolerance, Decreased Strength,Pain,Poor Balance Comments Gait Comments Pt ambulated in the room 15 feet with FWW CGA. She performed toe touch weightbearing in spite of cues for increased weight through her RLE. During gait, she complained of 10/10 pain in her right knee but did not call out, no evidence of buckling. Stair Climbing Assessment Comments Stair Climbing Comments Not assessed PT-Balance Assessment Sitting Balance and Reactions Static Sitting Balance Ability Good Dynamic Sitting Balance Ability Good Standing Balance and Reactions Static Standing Balance Ability Fair Dynamic Standing Balance Ability Fair Device Used FWW M5 PT-IP Objective Assessments Start: 10/08/19 09:02 Freq: NEEDED Status: Active Protocol: Document 10/08/19 11:42 AW (Rec: 10/08/19 12:08 AW [email or web address]) Orientation Orientation/Cognition Level of Alertness Alert Orientation Name,Day of Week,Place, Situation Language Function Ability No Deficits Noted Safety Awareness Understands Safety Issues Memory Description No Deficits Noted Comments Pt appears somewhat foggy and is aware of same, but she was alert and oriented x 4. Gross Range of Motion Upper Extremity ROM Assessment Within Functional Limits Lower Extremity ROM Assessment Right Impaired Strength Upper Extremity Strength Assessment Within Functional Limits Lower Extremity Strength Assessment Right Impaired Coordination Assessment Gross Coordination Gross Coordination WNL Sensation Assessment Sensation Gross Sensation WNL M6 PT-IP Treatment Start: 10/08/19 09:02 Freq: NEEDED Status: Active Protocol: Document 10/08/19 11:42 AW (Rec: 10/08/19 12:08 AW [email or web address]) Physical Therapy Treatment Exercises Exercises Ankle Pumps,Gluteal Sets,Quad Sets,Heel Slides Education Education Provided Precautions,Weight Bearing Status,Post-Op Packet,Safety Other Treatments Other Treatment Performed PT educated pt on plan of care , post-op exercises, weightbearing status, and safe use of FWW. M7 PT-IP Assessment and Plan Start: 10/08/19 09:02 Freq: NEEDED Status: Active Protocol: Document 10/08/19 11:42 AW (Rec: 10/08/19 12:08 AW [email or web address]) PT Summary Assessment and Plan Potential Rehabilitation Potential Good Status of Condition at Evaluation Evolving Summary Impairments Pain,Strength,Balance,Bed Mobility,Transfers,Gait, Activity Tolerance Assessment Summary Karley is a 69yo woman seen for PT evaluation on POD1 following R TKA. Prior to admission, she was modified independent for all mobility using SPC. She required occasional assist with showers to clean her back, but was otherwise independent with ADL 's. Upon evaluation, pt required min assist x 1 for most mobility and complained of 10/10 pain. She was unwilling to bear much weight through her RLE due to pain. Discharge recommendation is unclear at this point. If pt is to discharge to her 5th wheel, she will need to safely clear tall stairs. If she is unable to do so, she may need to arrange caregiver assistance at her partner's 2nd floor condo (accessed by 17 steps with unilateral rail) or possibly even consider a SNF rehab stay. PT will continue to assess. Goals Bed Mobility Goal Standby Assistance Transfer Goal Standby Assistance,Front Wheeled Walker Gait Goal Standby Assistance,Front Wheel Walker Gait Distance 150 Other Goals up/down 9.5 steps x 3 with left rail ascending SBA OR up/down 17 standard height steps with unilateral rail SBA Days to Meet Goals 10 Frequency of Treatment Frequency Of Treatment Twice a Day Treatment Plan Physical Therapy Treatment Plan Bed Mobility Training,Transfer Training,Gait Training, Therapeutic Exercise,Balance Retraining,Post Op Education, Discharge Planning,Hot or Cold Pack,Neuromuscular Re-ed, Coordination Retraining,Manual Therapy Recommendations To Nursing Amount of Assist Needed 1 Person Assist Discharge Recommendations PT Discharge Recommendations Home with Assistance,SNF Rehab ,Outpatient PT Other Discharge Recommendations Home with increased assist and outpatient PT most likely. May need to consider SNF if pt does not progress.
--- NOTE | 2019-10-08 13:22 | PC.NURSE ---
Addendum entered by Gayle June R.N. 10/08/19 14:22: Pt refused her 81mg dose of aspirin this morning stating, My information systems analyst told me i should not take aspirin unless I think I am having a heart attack because I have had a GI bleed in the past. Original Note: Pt has been reporting pain 9/10 to her surgical right knee. Pt has been administered 2 Merna without effect at 0830 this morning. She was administered 2mg Dilaudid at approx 9:30. Upon reassessment, pt reported that pain had not improved. [facility] was contacted and a new order for 4mg Dilaudid PO obtained. Pt was administered 4mg PO Dilaudid at approx. 11:45. Upon reassessment, pt reported her pain at a 5/10 on the pain scale. She reported as being uncomfortable but better. Pt has been up and ambulated from bed to chair with PT.
--- NOTE | 2019-10-08 16:03 | PT.IPTN ---
Current Diagnoses Bilateral primary osteoarthritis of knee (10/07/19) Surgery Performed Operation Date: 10/07/19 10:45 Actual Procedures p Total Knee Arthroplasty(Right) - Fabricio Rose MD Physical Therapy Treatment Note M2 PT-IP Current Condition Start: 10/08/19 09:02 Freq: NEEDED Status: Active Protocol: Document 10/08/19 11:42 AW (Rec: 10/08/19 12:08 AW [email or web address]) Physical Therapy Current Condition Current Condition Evaluation Date 10/08/19 Treatment Diagnosis s/p R TKA; impaired mobility Onset Date 10/07/19 Weight Bearing Status Weight Bearing Status Weight Bear as Tolerated M3 PT-IP Subjective Start: 10/08/19 09:02 Freq: NEEDED Status: Active Protocol: Document 10/08/19 15:22 SP (Rec: 10/08/19 16:26 SP [id number]) Subjective Physical Therapy Visit Type Type Treatment Note Visit Start Time 15:22 Visit Stop Time 16:03 Total Visit Minutes 41 Physical Therapy Visit Comments Patient Comments I am in 8going on 07/07 pain. Patient Goals Wanting to get back to bed. To go home to her 5th wheel with her partner's assistance Therapy Pain Assessment Pain When Pain Assessed At Rest Pain Present Pain Present Pain Reported Location Right Knee Intensity 8 Scale Used Numeric (1 - 10) Pain Management Techniques Apply Cold,Re-positioning, Timing of Activity with Medications M4 PT-IP Mobility and Gait Start: 10/08/19 09:02 Freq: NEEDED Status: Active Protocol: Document 10/08/19 15:22 SP (Rec: 10/08/19 16:26 SP [id number]) PT-Bed Mobility Assessment Rolling Type of Rolling Roll to Left Level of Assist Standby Assistance Sit to Supine Sit to Supine Minimal Assistance,Bedrails Scooting Scooting to Edge of Bed Standby Assistance PT-Transfer Assessment Sit to and From Stand Sit to and from Stand Minimal Assistance,1 Person Assistance,Use of Upper Extremities Equipment Transfer Assistive Device Gait Belt,Front Wheeled Walker Orthotic/Prosthetic Devices or Brace: No Transfers Transfer Destination Bed,Bedside Commode Transfer Technique Pt ambulated around end bed and back to BSC then step pivot to bed. Transfer Ability Level of Assist Contact Guard Assistance,1 Person Assistance,Use of Upper Extremities Comments Mobility Comments Pt was laying down in bed when arrived. Pt was able to complete supine to sitting and sitting to supine with min support for operative leg out/ in bed, instructed use of gait belt around foot for increased independence in mobility. Pt was able to scoot to EOB SBA and sit to stand Min A of 1 while using FWW. Pt required cuing for proper hand placement to stand from EOB and bedside commode and reach back with slow descent for safety. Pt was able to maintain static standing and complete clothing management herself during use of commode CGA and use of FWW for support . Pt requested to lay back down end of tx on her L side with pillows supporting RLE for comfort. Pt reported pain 9/10 end of tx, applied cold pack for pain control and patient called nurse for medication assist as well. Gait Assessment Gait Gait Assistance Required: Contact Guard Assist,1 Person Assist Distance (Feet) 30 Able to Maintain Weight Bearing Status Yes During Gait Assistive Devices Assistive Device Gait Belt,Front Wheeled Walker Orthotic/Prosthetic Devices or Brace: No Gait Deviations General Gait Pattern Antalgic,Decreased Stride Length,Decreased Feet Clearance,Flexed Trunk,Step-to Gait Factors Limiting Gait Function Factors Limiting Gait Function Decreased Activity Tolerance, Decreased Strength,Pain,Poor Balance Comments Gait Comments Pt initially did not put weight on RLE once up to standing, instructed in wt shift between BLE for pre gait ambulation then was able to progress walking step to gait pattern R side to door and back to BSC apprx 30 ft using FWW and CGA, heavy BUE WB on FWW during LLE advancement. Pt required cuing for R knee flexion, heel toe and FWW patterning for safety and increase normal walking with improvement as distance progressed. Stair Climbing Assessment Comments Stair Climbing Comments NOt assessed at this time. PT-Balance Assessment Sitting Balance and Reactions Static Sitting Balance Ability Good Dynamic Sitting Balance Ability Good Standing Balance and Reactions Static Standing Balance Ability Fair Dynamic Standing Balance Ability Fair Device Used FWW M5 PT-IP Objective Assessments Start: 10/08/19 09:02 Freq: NEEDED Status: Active Protocol: Document 10/08/19 11:42 AW (Rec: 10/08/19 12:08 AW [email or web address]) Orientation Orientation/Cognition Level of Alertness Alert Orientation Name,Day of Week,Place, Situation Language Function Ability No Deficits Noted Safety Awareness Understands Safety Issues Memory Description No Deficits Noted Comments Pt appears somewhat foggy and is aware of same, but she was alert and oriented x 4. Gross Range of Motion Upper Extremity ROM Assessment Within Functional Limits Lower Extremity ROM Assessment Right Impaired Strength Upper Extremity Strength Assessment Within Functional Limits Lower Extremity Strength Assessment Right Impaired Coordination Assessment Gross Coordination Gross Coordination WNL Sensation Assessment Sensation Gross Sensation WNL M6 PT-IP Treatment Start: 10/08/19 09:02 Freq: NEEDED Status: Active Protocol: Document 10/08/19 15:22 SP (Rec: 10/08/19 16:26 SP [id number]) Physical Therapy Treatment Exercises Exercises Ankle Pumps,Gluteal Sets,Quad Sets,Heel Slides,Seated Knee Flexion/Extension Education Education Provided Precautions,Weight Bearing Status,Post-Op Packet,Safety Other Treatments Other Treatment Performed ambulation further distance, stair training, caregiver training with partner. M7 PT-IP Assessment and Plan Start: 10/08/19 09:02 Freq: NEEDED Status: Active Protocol: Document 10/08/19 15:22 SP (Rec: 10/08/19 16:26 SP [id number]) PT Summary Assessment and Plan Potential Rehabilitation Potential Good Status of Condition at Evaluation Evolving Summary Impairments Pain,Strength,Balance,Bed Mobility,Transfers,Gait, Activity Tolerance Assessment Summary See mobility comments. Pt required Min A for BM, sit to stand using FWW, CGA for gait room distance and cuing for RLE WB during LLE advancement with proper stance phases for normalizing gait. Pt had all needs in reach when left. Goals Bed Mobility Goal Standby Assistance Transfer Goal Standby Assistance,Front Wheeled Walker Gait Goal Standby Assistance,Front Wheel Walker Gait Distance 150 Other Goals up/down 9.5 steps x 3 with left rail ascending SBA OR up/down 17 standard height steps with unilateral rail SBA Days to Meet Goals 10 Frequency of Treatment Frequency Of Treatment Twice a Day Treatment Plan Physical Therapy Treatment Plan Bed Mobility Training,Transfer Training,Gait Training, Therapeutic Exercise,Balance Retraining,Post Op Education, Discharge Planning,Hot or Cold Pack,Neuromuscular Re-ed, Coordination Retraining,Manual Therapy Recommendations To Nursing Amount of Assist Needed 1 Person Assist Discharge Recommendations PT Discharge Recommendations Home with Assistance,SNF Rehab ,Outpatient PT Other Discharge Recommendations Home with increased assist and outpatient PT most likely. May need to consider SNF if pt does not progress.
[2019-10-08] MEDS: HYDROMORPHONE 0.5 MG INJ IV ×2 (16:09→21:19)
[2019-10-08] MEDS: METHOCARBAMOL 500 MG TABLET PO (20:18)
[2019-10-08] MEDS: ACETAMINOPHEN 325 MG TABLET 650 MG PO (20:18)
[2019-10-08] MEDS: ESTRADIOL 1 MG TABLET PO (20:18)
[2019-10-08] MEDS: hydrOXYzine pamoate 25 MG CAPSULE PO (20:19)
--- NOTE | 2019-10-08 22:58 | PC.NURSE ---
Evening Shift Note- temop of 102.9 reported. Called oncobdulia Saldaña for tylenol order. New order of tylenol recieved, blood cultures ordered. GAve patient tylenol, cool washcloth to head and took off sockes and blackets from feet. Temp decreased to 99.3 when rechecked.
[2019-10-09] MEDS: ACETAMINOPHEN 325 MG TABLET 650 MG PO ×4 (00:15→12:32)
[2019-10-09] MEDS: HYDROMORPHONE 2 MG TABLET 4 MG PO (00:15)
[2019-10-09 03:30] VITALS: BP 138/77; PULSE 99; RESP 16; TEMP 37.1; O2SAT 90
[2019-10-09] MEDS: HYDROMORPHONE 2 MG TABLET PO ×6 (04:18→23:06)
[2019-10-09] MEDS: LEVOTHYROXINE 137 MCG TABLET PO (05:57)
--- NOTE | 2019-10-09 06:22 | PC.NURSE ---
POD 2. Pt rates pain at right knee 10/10 at beginning of shift. Admin pain medication per order in addition to tylenol. Pt using bedpan overnight as pt too intense for transfer to BSC. Pt appeared to rest for majority of night without further complaints of severe pain. Later pt rated pain 6/10, admin pain medication and second dose of tylenol. Pt Tmax 102.9 last sandra. Encouraging use of IS. No obvious s/s infection. Blood cultures pending results. Aquacell dressing to right knee CDI, SRINIVASA wrap removed. Pt performing ankle waves while awake. CMS intact, strong pedal pulse. Significant other at bedside offering support. Plan to DC today or tomorrow.
[2019-10-09 08:00] VITALS: BP 144/82; PULSE 100; RESP 16; TEMP 36.9; O2SAT 92
[2019-10-09] MEDS: LORATADINE 10 MG TABLET PO (08:13)
[2019-10-09] MEDS: SODIUM CHLORIDE 0.9% FLUSH 10 ML IV ×2 (08:14→20:32)
[2019-10-09] MEDS: NORTRIPTYLINE 10 MG CAPSULE PO ×2 (08:14→20:33)
[2019-10-09] MEDS: sulfaSALAzine 500 MG TABLET 1500 MG PO ×2 (08:14→20:32)
--- NOTE | 2019-10-09 08:42 | PM.PN.1 ---
Subjective Subjective Date Patient Seen: 10/09/19 Time Patient Seen: 08:42 Interval history: Patient is POD#2 s/p right TKA with Dr. Rose. Pain has been moderate to severe. Relieved with Dilaudid. Has mobilized about the room somewhat but continues to progress slowly with PT. Did have episode of fever overnight which has resolved. Blood cultures pending. Denies any chest pain or shortness of breath. Voiding appropriately and tolerating a diet. Exam Vital Signs (past 8 hours): - 10/09/19 03:30 Temperature 98.8 F Pulse Rate 99 H Respiratory Rate 16 Blood Pressure 138/77 Pulse Oximetry 90 L Oxygen Delivery Method Room Air Oxygen Flow Rate 0 Narrative Exam Narrative: 69 year old female resting comfortably in bed. Alert and oriented in mild discomfort. Aquacel dressing in place over right knee is CDI. Patient able to fire foot flexors and extensors. Calves soft and compressible. Palpable pedal pulse. Objective Labs Result Diagrams: 10/08/19 05:40 Assessment & Plan Assessment & Plan narrative: Patient progressing slowly with PT. Will continue to work with them today. Continue pain control. Pending CBC and blood cultures though fever appears to have resolved. Encouraged use of incentive spirometer. Patient has history of GI bleed, had been refusing ASA. Lovenox started today. Possible discharge to home tomorrow depending on her progress with PT. Lives in 5th wheel, caregiver available but would require ability to climb 17 steps. May require SNF discharge.
[2019-10-09] MEDS: ENOXAPARIN 40 MG/0.4 ML SYRINGE SUBCUT (09:34)
--- NOTE | 2019-10-09 10:00 | PT.IPTN ---
Current Diagnoses Bilateral primary osteoarthritis of knee (10/07/19) Surgery Performed Operation Date: 10/07/19 10:45 Actual Procedures p Total Knee Arthroplasty(Right) - Fabricio Rose MD Physical Therapy Treatment Note M2 PT-IP Current Condition Start: 10/08/19 09:02 Freq: NEEDED Status: Active Protocol: Document 10/08/19 11:42 AW (Rec: 10/08/19 12:08 AW [email or web address]) Physical Therapy Current Condition Current Condition Evaluation Date 10/08/19 Treatment Diagnosis s/p R TKA; impaired mobility Onset Date 10/07/19 Weight Bearing Status Weight Bearing Status Weight Bear as Tolerated M3 PT-IP Subjective Start: 10/08/19 09:02 Freq: NEEDED Status: Active Protocol: Document 10/09/19 09:00 AMB (Rec: 10/09/19 12:47 AMB [email or web address]) Subjective Physical Therapy Visit Type Type Treatment Note Visit Start Time 09:00 Visit Stop Time 09:45 Total Visit Minutes 45 Physical Therapy Visit Comments Patient Comments I have been sleeping so haven't been moving much Feeling really hot Therapy Pain Assessment Pain When Pain Assessed At Rest Pain Present Pain Present Pain Reported Location Right Knee Intensity 8 Scale Used Numeric (1 - 10) Pain Management Techniques Apply Cold,Re-positioning, Timing of Activity with Medications M4 PT-IP Mobility and Gait Start: 10/08/19 09:02 Freq: NEEDED Status: Active Protocol: Document 10/09/19 09:00 AMB (Rec: 10/09/19 12:47 AMB [email or web address]) PT-Bed Mobility Assessment Rolling Type of Rolling Roll to Right Supine to Sit Supine to Sit Minimal Assistance Sit to Supine Sit to Supine Minimal Assistance,Bedrails Scooting Scooting to Edge of Bed Contact Guard Assistance PT-Transfer Assessment Sit to and From Stand Sit to and from Stand Minimal Assistance,1 Person Assistance,Use of Upper Extremities Equipment Transfer Assistive Device Gait Belt,Front Wheeled Walker Orthotic/Prosthetic Devices or Brace: No Transfers Transfer Destination Bed Transfer Technique Pt ambulating with FWW Comments Mobility Comments Pt very slow with bed mobility , complaining that legs are stuck on sheets. Pt moving leg with assist of gait belt around foot, but calls out in pain when moving leg. Gait Assessment Gait Gait Assistance Required: Contact Guard Assist,1 Person Assist Distance (Feet) 20 Able to Maintain Weight Bearing Status Yes During Gait Assistive Devices Assistive Device Gait Belt,Front Wheeled Walker Orthotic/Prosthetic Devices or Brace: No Gait Deviations General Gait Pattern Antalgic,Decreased Stride Length,Decreased Feet Clearance,Flexed Trunk,Step-to Gait Factors Limiting Gait Function Factors Limiting Gait Function Decreased Activity Tolerance, Decreased Strength,Pain,Poor Balance Comments Gait Comments Pt ambulated in the room 20 feet- initially not weightbearing through the leg, but this did improve with time. Pt with very short stance time on surgical leg, and not fully extending knee in stance. Pt felt very weak and hot so only walked short distance. Returned to bed and left pt in room with her partner, call light, and ice packs. Stair Climbing Assessment Comments Stair Climbing Comments NOt assessed at this time. M5 PT-IP Objective Assessments Start: 10/08/19 09:02 Freq: NEEDED Status: Active Protocol: Document 10/08/19 11:42 AW (Rec: 10/08/19 12:08 AW [email or web address]) Orientation Orientation/Cognition Level of Alertness Alert Orientation Name,Day of Week,Place, Situation Language Function Ability No Deficits Noted Safety Awareness Understands Safety Issues Memory Description No Deficits Noted Comments Pt appears somewhat foggy and is aware of same, but she was alert and oriented x 4. Gross Range of Motion Upper Extremity ROM Assessment Within Functional Limits Lower Extremity ROM Assessment Right Impaired Strength Upper Extremity Strength Assessment Within Functional Limits Lower Extremity Strength Assessment Right Impaired Coordination Assessment Gross Coordination Gross Coordination WNL Sensation Assessment Sensation Gross Sensation WNL M6 PT-IP Treatment Start: 10/08/19 09:02 Freq: NEEDED Status: Active Protocol: Document 10/09/19 09:00 AMB (Rec: 10/09/19 12:47 AMB [email or web address]) Physical Therapy Treatment Exercises Exercises Ankle Pumps,Heel Slides Other Treatments Other Treatment Performed Helped pt prioritize exercises , reinforced importance of moving knee now, despite pain. M7 PT-IP Assessment and Plan Start: 10/08/19 09:02 Freq: NEEDED Status: Active Protocol: Document 10/09/19 09:00 AMB (Rec: 10/09/19 12:47 AMB [email or web address]) PT Summary Assessment and Plan Potential Rehabilitation Potential Good Status of Condition at Evaluation Evolving Summary Impairments Pain,Strength,Balance,Bed Mobility,Transfers,Gait, Activity Tolerance Assessment Summary Pt had significant slowness and pain with all bed mobility . Pt was able to complete ambulation with FWW with CGA, but was not putting full weight through the surgical leg and kept knee flexed to approximately 10 degrees. Stairs would be very challenging at this time due to her pain. She also has a step to get into her bed that she would have to turn around on, and this sounds unsafe. Unless patient improves signficantly with stairs and mobility quickly, she will likely need a short SNF stay, as she would be unsafe to return home at this point. Goals Bed Mobility Goal Standby Assistance Transfer Goal Standby Assistance,Front Wheeled Walker Gait Goal Standby Assistance,Front Wheel Walker Gait Distance 150 Other Goals up/down 9.5 steps x 3 with left rail ascending SBA OR up/down 17 standard height steps with unilateral rail SBA Days to Meet Goals 10 Frequency of Treatment Frequency Of Treatment Twice a Day Treatment Plan Physical Therapy Treatment Plan Bed Mobility Training,Transfer Training,Gait Training, Therapeutic Exercise,Balance Retraining,Post Op Education, Discharge Planning,Hot or Cold Pack,Neuromuscular Re-ed, Coordination Retraining,Manual Therapy Recommendations To Nursing Amount of Assist Needed 1 Person Assist Discharge Recommendations PT Discharge Recommendations Home with Assistance,SNF Rehab ,Outpatient PT Other Discharge Recommendations Likely need to consider SNF unless pt's partner is able to provide 24 hour assist and they are safe on stairs.
[2019-10-09 10:57] LABS: Add Manual Diff / Slide Review NO; Basophils Absolute Auto 0 /uL (0-100); Basophils Percent Auto 0.5 % (0-2); Eosinophils Absolute Auto 0 /uL (0-450); Eosinophils Percent Auto 0.4 % (2-4); Hematocrit 34.5 % (36-46); Hemoglobin 11.8 g/dL (12.0-16.0); Lymphocytes Absolute Auto 1300 /uL (1100-4500); Lymphocytes Percent Auto 13.3 % (25-40); Mean Corpuscular HGB Conc 34.1 % (30-36); Mean Corpuscular Hemoglobin 33.4 PG (26-34); Mean Corpuscular Volume 98.1 fL (80-100); Monocytes Absolute Auto 700 /uL (0-900); Monocytes Percent Auto 7.1 % (3-14); Neutrophils Absolute Auto 7800 /uL (1500-7000); Neutrophils Percent Auto 78.7 % (50-75); Platelet Count 266 X10^3/uL (150-400); Red Blood Cell Count 3.52 X10^6/uL (4.0-5.2); Red Cell Distribution Width 13.1 % (11.6-14.8)
--- NOTE | 2019-10-09 13:44 | CM.DPC ---
DCP: continued: case received, EMR reviewed and spoke this morning with ortho PA Yuridia Mirza. She notes that pt has been very slow to progress, primarily limited by severe pain. She noted that pt will either d/c to home setting, provided the appropriate care is in place and if she continues to do poorly she will need to consider a snf setting. She and UR SRINIVASAN Regalado discussed admission status: pt admitted for her planned surgery 10/07: admission status: SDC. This was changed to OBS on 10/08 and now on 10/09 the admission status changed to INPT: confirmed by UR SRINIVASAN Regalado. Met now with pt and her significant other: Tara Ramona: [phone]. Introduced self and role. Pt very agreeable to talk and explains at length her extensive history or joint replacements and spinal surgery (May 2010). She has had surgeries with Dr. Rose, is here now for a RTKA and Dr. Rose will do the L one when he thinks I am ready for it.. Pt and Tara clarify their d/c plan: Pt would return to her 5 wheel at d/c, 4 steps to entry, one railing, and does have OUTPT PT set up with [facility]: [facility]. She says she has been going to him for a long time. Tara will be staying at the 5th wheel home for supportive assist. He has stayed there before both to help her out and then after his heart procedure when she assisted him. His condo with the [address] is about a mile away. Discussed snf option as a backup. Pt says she has been considering this up until this afternoon when I seem to have suddenly improved. She notes she has to use the bathroom and that YNES Romano assisted her from bed to bathroom and I did really well. The pain was suddenly so much less.. Pt and Tara now anticipate pt will make good improvement. Agreed to talk with them again tomorrow to continue the home vs snf discussion. IF pt is to need snf she would not meet the Medicare criteria for same until 10/12 and it seems VERY likely that pt will make progress in the next couple of days.
[2019-10-09 15:00] VITALS: BP 116/60; PULSE 96; RESP 17; TEMP 36.3; O2SAT 100
--- NOTE | 2019-10-09 16:10 | PT.IPTN ---
Current Diagnoses Bilateral primary osteoarthritis of knee (10/07/19) Surgery Performed Operation Date: 10/07/19 10:45 Actual Procedures p Total Knee Arthroplasty(Right) - Fabricio Rose MD Physical Therapy Treatment Note M2 PT-IP Current Condition Start: 10/08/19 09:02 Freq: NEEDED Status: Active Protocol: Document 10/08/19 11:42 AW (Rec: 10/08/19 12:08 AW [email or web address]) Physical Therapy Current Condition Current Condition Evaluation Date 10/08/19 Treatment Diagnosis s/p R TKA; impaired mobility Onset Date 10/07/19 Weight Bearing Status Weight Bearing Status Weight Bear as Tolerated M3 PT-IP Subjective Start: 10/08/19 09:02 Freq: NEEDED Status: Active Protocol: Document 10/09/19 14:10 HH (Rec: 10/09/19 16:09 HH [email or web address]) Subjective Physical Therapy Visit Type Type Treatment Note Visit Start Time 14:10 Visit Stop Time 14:25 Total Visit Minutes 15 Notes Pt's raquel Pacheco attended first 5 mins of session and went back to sleep. Physical Therapy Visit Comments Patient Comments Pt agreeable to mobilize with PT. Therapy Pain Assessment Pain When Pain Assessed At Rest Pain Present Pain Present Pain Reported Location Right Knee Intensity 5 Scale Used Numeric (1 - 10) Pain Management Techniques Apply Cold,Re-positioning, Timing of Activity with Medications M4 PT-IP Mobility and Gait Start: 10/08/19 09:02 Freq: NEEDED Status: Active Protocol: Document 10/09/19 14:10 HH (Rec: 10/09/19 16:09 HH [email or web address]) PT-Bed Mobility Assessment Sit to Supine Sit to Supine Contact Guard Assistance, Bedrails Scooting Scooting to Edge of Bed Contact Guard Assistance PT-Transfer Assessment Sit to and From Stand Sit to and from Stand Minimal Assistance,1 Person Assistance,Use of Upper Extremities Equipment Transfer Assistive Device Gait Belt,Front Wheeled Walker Orthotic/Prosthetic Devices or Brace: No Transfers Transfer Destination Bed,Chair Transfer Technique Pt ambulating with FWW Transfer Ability Level of Assist Contact Guard Assistance,1 Person Assistance,Use of Upper Extremities Comments Mobility Comments Pt was in chair finishing her lunch upon assessment. She reports she was impressed with her progress early this morning. She completed sit to stand with staggered stance with fww and min A. She was able to even her steps and perform weight shift laterally . However, pt primarily WB through BUEs and RLEs. She stated Its somewhat 50-60 weight on my R knee She amb to hallway and returned to bed . Pt needed gait belt to lift her R LE during sit to supine but she was able to scoot up/ down and laterally with SBA and bed rails. Bed alarm activated and call light within reach. Gait Assessment Gait Gait Assistance Required: Contact Guard Assist,1 Person Assist Distance (Feet) 45 Able to Maintain Weight Bearing Status Yes During Gait Assistive Devices Assistive Device Gait Belt,Front Wheeled Walker Orthotic/Prosthetic Devices or Brace: No Gait Deviations General Gait Pattern Antalgic,Decreased Stride Length,Decreased Feet Clearance,Flexed Trunk,Step-to Gait Factors Limiting Gait Function Factors Limiting Gait Function Decreased Activity Tolerance, Decreased Strength,Pain,Poor Balance Comments Gait Comments Pt amb frmo bedside chair to midpoint of nursing station with FWW CGA. Initially only WB 30% through RLE due to pain , but slowly increase to 50-70 %. She still lacks of knee extension in stance , along with step to gait pattern. Stair Climbing Assessment Comments Stair Climbing Comments NOt assessed at this time. M5 PT-IP Objective Assessments Start: 10/08/19 09:02 Freq: NEEDED Status: Active Protocol: Document 10/08/19 11:42 AW (Rec: 10/08/19 12:08 AW [email or web address]) Orientation Orientation/Cognition Level of Alertness Alert Orientation Name,Day of Week,Place, Situation Language Function Ability No Deficits Noted Safety Awareness Understands Safety Issues Memory Description No Deficits Noted Comments Pt appears somewhat foggy and is aware of same, but she was alert and oriented x 4. Gross Range of Motion Upper Extremity ROM Assessment Within Functional Limits Lower Extremity ROM Assessment Right Impaired Strength Upper Extremity Strength Assessment Within Functional Limits Lower Extremity Strength Assessment Right Impaired Coordination Assessment Gross Coordination Gross Coordination WNL Sensation Assessment Sensation Gross Sensation WNL M6 PT-IP Treatment Start: 10/08/19 09:02 Freq: NEEDED Status: Active Protocol: Document 10/09/19 09:00 AMB (Rec: 10/09/19 12:47 AMB [email or web address]) Physical Therapy Treatment Exercises Exercises Ankle Pumps,Heel Slides Other Treatments Other Treatment Performed Helped pt prioritize exercises , reinforced importance of moving knee now, despite pain. M7 PT-IP Assessment and Plan Start: 10/08/19 09:02 Freq: NEEDED Status: Active Protocol: Document 10/09/19 14:10 (Rec: 10/09/19 16:09 [email or web address]) PT Summary Assessment and Plan Potential Rehabilitation Potential Good Status of Condition at Evaluation Evolving Summary Impairments Pain,Strength,Balance,Bed Mobility,Transfers,Gait, Activity Tolerance Assessment Summary Pt shows improved amb distance and quality of gait with increased Wb on RLE. However, pt still c/o increased R knee pain and c/o fatigue at the end of session. She was also able to use gait belt to lift her R LE for sit to supine. Although pt is making progress , pt will still need to negotiate 9.5 steps x 3 with left rail/ 17 steps from his fiance's home. otherwise, pt will require short term rehab to improve mobility and strength. Goals Bed Mobility Goal Standby Assistance Transfer Goal Standby Assistance,Front Wheeled Walker Gait Goal Standby Assistance,Front Wheel Walker Gait Distance 150 Other Goals up/down 9.5 steps x 3 with left rail ascending SBA OR up/down 17 standard height steps with unilateral rail SBA Days to Meet Goals 10 Frequency of Treatment Frequency Of Treatment Twice a Day Treatment Plan Physical Therapy Treatment Plan Bed Mobility Training,Transfer Training,Gait Training, Therapeutic Exercise,Balance Retraining,Post Op Education, Discharge Planning,Hot or Cold Pack,Neuromuscular Re-ed, Coordination Retraining,Manual Therapy Recommendations To Nursing Amount of Assist Needed 1 Person Assist Discharge Recommendations PT Discharge Recommendations Home with Assistance,SNF Rehab ,Outpatient PT Other Discharge Recommendations Likely need to consider SNF unless pt's partner is able to provide 24 hour assist and they are safe on stairs.
[2019-10-09 19:18] VITALS: BP 121/75; PULSE 106; RESP 21; TEMP 38.4; O2SAT 97
[2019-10-09] MEDS: ESTRADIOL 1 MG TABLET PO (20:32)
[2019-10-09] MEDS: METHOCARBAMOL 500 MG TABLET PO (20:33)
[2019-10-09] MEDS: hydrOXYzine pamoate 25 MG CAPSULE PO (20:37)
[2019-10-09] MEDS: HYDROMORPHONE 0.5 MG INJ IV (23:08)
[2019-10-09 23:30] VITALS: BP 138/53; PULSE 112; RESP 17; TEMP 36.8; O2SAT 95
[2019-10-10] MEDS: HYDROMORPHONE 0.5 MG INJ IV (01:39)
[2019-10-10] MEDS: SODIUM CHLORIDE 0.9% FLUSH 10 ML IV ×3 (01:39→22:17)
[2019-10-10] MEDS: diphenhydrAMINE 25 MG TABLET 50 MG PO (01:39)
[2019-10-10] MEDS: ACETAMINOPHEN 325 MG TABLET 650 MG PO ×2 (01:39→08:30)
[2019-10-10 06:00] VITALS: BP 126/66; PULSE 94; RESP 16; TEMP 36.8; O2SAT 95
[2019-10-10] MEDS: LEVOTHYROXINE 137 MCG TABLET PO (06:02)
--- NOTE | 2019-10-10 06:20 | PC.NURSE ---
Pt POD 3 s/p right knee repair. Pt stated legs jumpy overnight. Encouraged to perform ankle waves, bend leg, move as limitations allow. Pt given pain medication and PO benadryl as ordered. Upon awakening this morning pt stated she had no further jumpy legs and stated she felt restful during night. SCDs in place. VSS, no s/s infection. DSG to right knee, CDI. Tolerating sipping water at bedside. Pt without BM since 10/06, will confer with provider for bowel regimen. Denies nausea, abd soft, non-tender. Pt needs encouragement to use BSC. Using IS while awake. Plan to discharge today or tomorrow.Assess for knowledge deficits regarding discharge and s/s to report post dc.
[2019-10-10 08:16] VITALS: BP 123/73; PULSE 96; RESP 16; TEMP 36.8; O2SAT 95
[2019-10-10] MEDS: NORTRIPTYLINE 10 MG CAPSULE PO ×2 (08:32→20:22)
[2019-10-10] MEDS: HYDROMORPHONE 2 MG TABLET 4 MG PO (08:32)
[2019-10-10] MEDS: sulfaSALAzine 500 MG TABLET 1500 MG PO ×2 (08:32→20:52)
[2019-10-10] MEDS: ENOXAPARIN 40 MG/0.4 ML SYRINGE SUBCUT (08:33)
--- NOTE | 2019-10-10 10:28 | CM.DANOTE ---
Addendum entered by Elizabeth Covarrubias LPN 10/10/19 15:56: Contact info: [facility]: [address] [facility] [address] main # [phone] Admissions office: [phone] admissions fax: [phone]. Have faxed: NWO scanned H&P, op report, ortho SAMI progress notes. PT notes (OT did not see pt today). CM/DCP notes. Receipt of fax confirmation: received #: [id number] pm: 16 pages. Will check in tomorrow morning for the expected call back from Tamara. Addendum entered by Elizabeth Covarrubias LPN 10/10/19 15:38: PT did see pt today and notes the recommendation continues to be for snf level care before home. [facility] is identified by pt and Tara as snf choice. [facility] is alternate. Attempted referral to [facility]/no admission person over the weekend. Lea/licensing worker Tamara is reviewing now and expects to have an answer before she leaves at 1900. She notes no licensing worker on for Saturday but her colleage in admissions/Kristal will be in on Saturday. Faxing now. Addendum entered by Elizabeth Covarrubias LPN 10/10/19 11:35: Spoke again with Ortho SAMI Crowe with update. He plans to strongly encourage pt to her home plan with back up of snf for Saturday noted. Requested OT eval to help better define pt's needs for snf vs home setting and to also help encourage her to greater participation in mobilizing throughout the day. He agreed/order placed. Original Note: DCP: continued: Spoke this morning with ortho SAMI peters the d/c dispo issues. He notes that PT will see pt again today but he sees that pt is no longer feeling like she is doing well. He notes he is familiar with pt as her did see her in clinic prior to this surgery. Agreed to see pt and start the snf referral process so that IF pt is unable to d/c to her home setting with assist of Tara this weekend she will be able to d/c to snf on Friday 10/12. It is also noted that pt has had no BM since 10/06. SRINIVASAN Horan is aware and has discussed with SAMI Page. Met now with pt and Tara. SNF choice list: given and discussed. Pt does not want any of the facilities on the list, we live in [place], I want it to be somewhere in that area. Pt has never been to a snf in that area so has identified facility. Tara is now researching facilities and will identify 2 of them. Pt refuses at this time to consider a local choice. They are also getting imput on snfs in that area from friends and family. Explained need for identify facilities by noon if possible. Tara does acknowledge that it remains quite likely that pt will d/c to home setting at time of d/c but notes we want to make sure we have the right place lined up in case she needs it. Pt now working with PT. Will check in later and follow. IF snf, will need [facility]. Will not complete early as d/c dispo is quite uncertain. SRINIVASAN Horan notes that she is going to focus on a pain management plan that will hopefully make pt's ability to mobilize a bit less erratic.
--- NOTE | 2019-10-10 10:44 | PM.PNPO.1 ---
Subjective Subjective Date Patient Seen: 10/10/19 Time Patient Seen: 09:00 Interval history: Patient is POD#3 s/p right TKA with Dr. Rose. Pain has been moderate to severe. Relieved with Dilaudid. Patient complains of worse pain today than yesterday. Is apprehensive about PT today. Did have episode of fever on POD#2 which has resolved. Afebrile today, denies fever, chills. Blood cultures - preliminary results show no growth. Denies any chest pain or shortness of breath. Voiding appropriately and tolerating a diet. Exam Vital Signs (past 8 hours): - 10/10/19 06:00 10/10/19 08:16 Temperature 98.2 F 98.2 F Pulse Rate 94 H 96 H Respiratory Rate 16 16 Blood Pressure 126/66 123/73 Pulse Oximetry 95 95 Oxygen Delivery Method Room Air Oxygen Flow Rate 0 Narrative Exam Narrative: 69 yo F laying comfortably in bed, in no apparent distress. A&Ox3. Dressing CDI. Sensory function grossly intact to light touch in LE. Capillary refill <2sec in LE. Able to actively dorsiflex/plantar flex. Calves warm, soft, compressible, nttp. SCDs in place. Objective Labs Result Diagrams: 10/09/19 10:20 Labs: Laboratory Results - last 24 hr 10/09/19 10:20 WBC 10.0 RBC 3.52 L Hgb 11.8 L Hct 34.5 L MCV 98.1 MCH 33.4 MCHC 34.1 RDW 13.1 Plt Count 266 Neut % (Auto) 78.7 H Lymph % (Auto) 13.3 L Nuckolls % (Auto) 7.1 Eos % (Auto) 0.4 L Baso % (Auto) 0.5 Neut # (Auto) 7800 H Lymph # (Auto) 1300 Nuckolls # (Auto) 700 Eos # (Auto) 0 Baso # (Auto) 0 Assessment & Plan Post-op Postoperative Procedures: Procedures Operation Date: 10/07/19 10:45 Actual Procedures Side Surgeon p Total Knee Arthroplasty Right Fabricio Rose MD Postoperative status: doing well Postoperative plan narrative: Patient progressing slowly with PT. Will continue to work with them today. Continue pain control Blood cultures - preliminary results show no growth, fever appears to have resolved. Encouraged use of incentive spirometer. Continue Lovenox Possible discharge to home today or tomorrow depending on her progress with PT. Lives in 5[address] wheel, caregiver available but would require ability to climb 17 steps. May require SNF discharge. Time Spent With Patient Time with patient: less than 15 minutes
[2019-10-10] MEDS: hydrOXYzine pamoate 25 MG CAPSULE PO ×2 (11:37→16:19)
[2019-10-10 11:48] VITALS: BP 106/68; PULSE 100; RESP 16; TEMP 36.5; O2SAT 93
--- NOTE | 2019-10-10 11:50 | PC.NURSE ---
Day Shift- Spoke with SAMI Crowe around 1015, request for prn or scheduled bowel regime, pt has had no BM since 10/06, pt denies constipation. Also requested decreasing prn Dilaudid po 4mg pain interval from every 6hr prn. pt has 6-10/10 pain to right knee, required IV prn Dilaudid during night. Plan for prn PO pain/spasm med when available to optimize pt's pain management. Per PT at 1130, pt unable to fully bear weight on right leg, unable to perform stairs. Plan for PM PT session. Pt's Kylah Pacheco roomed in, at bedside researching SNF.
[2019-10-10] MEDS: HYDROMORPHONE 4 MG TABLET PO ×3 (12:22→20:23)
[2019-10-10] MEDS: SENNOSIDES 8.6 MG TABLET PO (12:22)
--- NOTE | 2019-10-10 13:01 | PT.IPTN ---
Current Diagnoses Bilateral primary osteoarthritis of knee (10/07/19) Surgery Performed Operation Date: 10/07/19 10:45 Actual Procedures p Total Knee Arthroplasty(Right) - Fabricio Rose MD Physical Therapy Treatment Note M2 PT-IP Current Condition Start: 10/08/19 09:02 Freq: NEEDED Status: Active Protocol: Document 10/10/19 11:34 NFW (Rec: 10/10/19 13:01 NFW [email or web address]) Physical Therapy Current Condition Weight Bearing Status Weight Bearing Status Full Weight Bearing M3 PT-IP Subjective Start: 10/08/19 09:02 Freq: NEEDED Status: Active Protocol: Document 10/10/19 11:34 NFW (Rec: 10/10/19 13:01 NFW [email or web address]) Subjective Physical Therapy Visit Type Visit Start Time 10:25 Visit Stop Time 11:34 Total Visit Minutes 69 Notes Pt's raquel Pacheco present throughout session. Number of ASSISTANT CHIEF NURSING OFFICER Visits 0 Physical Therapy Visit Comments Patient Comments Tired and scared but willing to follow through with PT. Therapy Pain Assessment Pain When Pain Assessed At Rest Pain Present Pain Present Pain Reported M4 PT-IP Mobility and Gait Start: 10/08/19 09:02 Freq: NEEDED Status: Active Protocol: Document 10/10/19 11:34 NFW (Rec: 10/10/19 13:01 NFW [email or web address]) PT-Bed Mobility Assessment Supine to Sit Supine to Sit Minimal Assistance,1 Person Assistance Scooting Scooting to Edge of Bed Contact Guard Assistance PT-Transfer Assessment Sit to and From Stand Sit to and from Stand Contact Guard Assistance,1 Person Assistance,Use of Upper Extremities Equipment Transfer Assistive Device Gait Belt,Front Wheeled Walker Orthotic/Prosthetic Devices or Brace: No Transfers Transfer Destination Bed,Chair,Bedside Commode Transfer Technique Pt ambulating with FWW Transfer Ability Level of Assist Contact Guard Assistance,1 Person Assistance,Use of Upper Extremities Comments Mobility Comments Pt moving slowly. Difficulty with supine to sit due to inability to lift RLE. Used belt initially then used hands for assist. Instruction required throughout. CGA sit to stand with verbal cuing in positioning of RLE. Transfer to commode then walk to sink with FWW with CGA. Gait Assessment Gait Gait Assistance Required: Contact Guard Assist,1 Person Assist Distance (Feet) 100 Assistive Devices Assistive Device Gait Belt,Front Wheeled Walker Orthotic/Prosthetic Devices or Brace: No Gait Deviations General Gait Pattern Antalgic,Decreased Stride Length,Decreased Feet Clearance,Flexed Trunk,Step-to Gait Factors Limiting Gait Function Factors Limiting Gait Function Decreased Activity Tolerance, Decreased Strength,Limited Range of Motion,Pain,Poor Balance Comments Gait Comments Pt amb 60' then another 40' with FWW. Pt is not FWB onto RLE, relies on UE during stance phase of right. Encouraged WBAT. Stair Climbing Assessment Evaluation Level of Assist On Stairs Maximal Assistance,1 Person Assistance Devices Stair Climbing Assistive Devices Left Railing,Right Railing Comments Stair Climbing Comments Stairclimbing attempted but unable to accomplish. Unable to bear FW onto RLE and has insufficient strength UE to lift wt to next step. M5 PT-IP Objective Assessments Start: 10/08/19 09:02 Freq: NEEDED Status: Active Protocol: Document 10/08/19 11:42 AW (Rec: 10/08/19 12:08 AW [email or web address]) Orientation Orientation/Cognition Level of Alertness Alert Orientation Name,Day of Week,Place, Situation Language Function Ability No Deficits Noted Safety Awareness Understands Safety Issues Memory Description No Deficits Noted Comments Pt appears somewhat foggy and is aware of same, but she was alert and oriented x 4. Gross Range of Motion Upper Extremity ROM Assessment Within Functional Limits Lower Extremity ROM Assessment Right Impaired Strength Upper Extremity Strength Assessment Within Functional Limits Lower Extremity Strength Assessment Right Impaired Coordination Assessment Gross Coordination Gross Coordination WNL Sensation Assessment Sensation Gross Sensation WNL M6 PT-IP Treatment Start: 10/08/19 09:02 Freq: NEEDED Status: Active Protocol: Document 10/10/19 11:34 NFW (Rec: 10/10/19 13:01 NFW [email or web address]) Physical Therapy Treatment Exercises Exercises Ankle Pumps,Quad Sets,Heel Slides Education Education Provided Precautions,Weight Bearing Status,Safety Other Treatments Other Treatment Performed Encouraged patient to follow through with exercises while in bed. M7 PT-IP Assessment and Plan Start: 10/08/19 09:02 Freq: NEEDED Status: Active Protocol: Document 10/10/19 11:34 NFW (Rec: 10/10/19 13:01 NFW [email or web address]) PT Summary Assessment and Plan Summary Impairments Pain,Strength,Balance,Bed Mobility,Transfers,Gait, Activity Tolerance Assessment Summary Pt did not perform as well. She did increase ambulation distance but relied heavily on UE during stance phase of RLE . Attempted stair climbing but unable. At this point pt would have an extremely difficult time negotiating the stairs that she has on her 5th Wheel. Goals Bed Mobility Goal Standby Assistance Transfer Goal Standby Assistance,Front Wheeled Walker Gait Goal Standby Assistance,Front Wheel Walker Gait Distance 150 Other Goals up/down 9.5 steps x 3 with left rail ascending SBA OR up/down 17 standard height steps with unilateral rail SBA Days to Meet Goals 10 Treatment Plan Physical Therapy Treatment Plan Bed Mobility Training,Transfer Training,Gait Training, Therapeutic Exercise,Balance Retraining,Post Op Education, Discharge Planning,Hot or Cold Pack,Neuromuscular Re-ed, Coordination Retraining,Manual Therapy Recommendations To Nursing Amount of Assist Needed 1 Person Assist Discharge Recommendations Other Discharge Recommendations At this point pt unable to negotiate stairs. Will need to consider SNF.
--- NOTE | 2019-10-10 15:38 | PT.IPTN ---
Current Diagnoses Bilateral primary osteoarthritis of knee (10/07/19) Surgery Performed Operation Date: 10/07/19 10:45 Actual Procedures p Total Knee Arthroplasty(Right) - Fabricio Rose MD Physical Therapy Treatment Note M2 PT-IP Current Condition Start: 10/08/19 09:02 Freq: NEEDED Status: Active Protocol: Document 10/10/19 11:34 NFW (Rec: 10/10/19 13:01 NFW [email or web address]) Physical Therapy Current Condition Weight Bearing Status Weight Bearing Status Full Weight Bearing M3 PT-IP Subjective Start: 10/08/19 09:02 Freq: NEEDED Status: Active Protocol: Document 10/10/19 15:27 NFW (Rec: 10/10/19 15:38 NFW [id number]) Subjective Physical Therapy Visit Type Type Treatment Note Visit Start Time 14:30 Visit Stop Time 15:26 Total Visit Minutes 56 Notes Tara sleeping in room. Number of THREAD WINDER AUTOMATIC Visits 0 Physical Therapy Visit Comments Patient Comments Pt sleeping when entered but agreed to follow through with treatment. States that she's tired. M4 PT-IP Mobility and Gait Start: 10/08/19 09:02 Freq: NEEDED Status: Active Protocol: Document 10/10/19 15:27 NFW (Rec: 10/10/19 15:38 NFW [id number]) PT-Bed Mobility Assessment Supine to Sit Supine to Sit Minimal Assistance,1 Person Assistance Sit to Supine Sit to Supine Minimal Assistance,1 Person Assistance Scooting Scooting to Edge of Bed Contact Guard Assistance PT-Transfer Assessment Sit to and From Stand Sit to and from Stand Contact Guard Assistance,1 Person Assistance,Use of Upper Extremities Equipment Transfer Assistive Device Gait Belt,Front Wheeled Walker Orthotic/Prosthetic Devices or Brace: No Transfers Transfer Destination Bed,Toilet Transfer Technique Pt ambulating with FWW Transfer Ability Level of Assist Contact Guard Assistance,1 Person Assistance,Use of Upper Extremities Comments Mobility Comments Improved form in bed mobilities. Moves slowly and requires light assist in lifting RLE in and out of bed. She is able to assist somewhat with the use of her LLE. Gait Assessment Gait Gait Assistance Required: Contact Guard Assist,1 Person Assist Distance (Feet) 130 Able to Maintain Weight Bearing Status No During Gait Assistive Devices Assistive Device Gait Belt,Front Wheeled Walker Orthotic/Prosthetic Devices or Brace: No Gait Deviations General Gait Pattern Antalgic,Decreased Stride Length,Decreased Feet Clearance,Flexed Trunk,Step-to Gait Factors Limiting Gait Function Factors Limiting Gait Function Decreased Activity Tolerance, Decreased Strength,Limited Range of Motion,Pain,Poor Balance Comments Gait Comments Ambulates slowly but able to increase in distance. Continues to rely heavily onto UE during stance of RLE. Stair Climbing Assessment Comments Stair Climbing Comments See previous note. Did not attempt this pm. M5 PT-IP Objective Assessments Start: 10/08/19 09:02 Freq: NEEDED Status: Active Protocol: Document 10/08/19 11:42 AW (Rec: 10/08/19 12:08 AW [email or web address]) Orientation Orientation/Cognition Level of Alertness Alert Orientation Name,Day of Week,Place, Situation Language Function Ability No Deficits Noted Safety Awareness Understands Safety Issues Memory Description No Deficits Noted Comments Pt appears somewhat foggy and is aware of same, but she was alert and oriented x 4. Gross Range of Motion Upper Extremity ROM Assessment Within Functional Limits Lower Extremity ROM Assessment Right Impaired Strength Upper Extremity Strength Assessment Within Functional Limits Lower Extremity Strength Assessment Right Impaired Coordination Assessment Gross Coordination Gross Coordination WNL Sensation Assessment Sensation Gross Sensation WNL M6 PT-IP Treatment Start: 10/08/19 09:02 Freq: NEEDED Status: Active Protocol: Document 10/10/19 15:27 NFW (Rec: 10/10/19 15:38 [facility] [id number]) Physical Therapy Treatment Exercises Exercises Ankle Pumps,Quad Sets,Heel Slides Education Education Provided Precautions,Weight Bearing Status,Safety Other Treatments Other Treatment Performed Encouraged patient to follow through with exercises while in bed. M7 PT-IP Assessment and Plan Start: 10/08/19 09:02 Freq: NEEDED Status: Active Protocol: Document 10/10/19 15:27 NFW (Rec: 10/10/19 15:38 [facility] [id number]) PT Summary Assessment and Plan Summary Impairments Pain,Strength,Balance,Bed Mobility,Transfers,Gait, Activity Tolerance Assessment Summary Improved performance in ambulation but continues to rely heavily on UEs during stance phase of RLE. Unable to accomplish stairs at this time. Goals Transfer Goal Standby Assistance,Front Wheeled Walker Gait Goal Standby Assistance,Front Wheel Walker Gait Distance 150 Other Goals up/down 9.5 steps x 3 with left rail ascending SBA OR up/down 17 standard height steps with unilateral rail SBA Frequency of Treatment Frequency Of Treatment Twice a Day Recommendations To Nursing Amount of Assist Needed 1 Person Assist Discharge Recommendations Other Discharge Recommendations At this point pt unable to negotiate stairs. Will need to consider SNF.
--- NOTE | 2019-10-10 17:04 | OT.IP.EVAL ---
Current Diagnoses Bilateral primary osteoarthritis of knee (10/07/19) Surgery Performed Operation Date: 10/07/19 10:45 Actual Procedures p Total Knee Arthroplasty(Right) - Fabricio Rose MD Past Medical History (Last Updated 09/28/19 @ 13:24 by Maggi Carpenter, RN) Abnormal Pap smear of cervix (Resolved) Acne (Resolved) Ankle pain (Chronic ~2001) Cat bite involving extremity (Inactive) Chickenpox (Resolved ~1954) Chronic back pain (Chronic ~2012) GI bleeding (Chronic ~2006) Hearing deficit (Chronic ~1997) Herpes simplex virus (HSV) infection (Chronic ~1998) History of frequent headaches (Chronic ~1967) Hypothyroidism (Chronic ~2001) Measles (Resolved ~1955) Mgr NOS wo ntrc w st mgr (Inactive 05/18/04) Migraines (Resolved) Mumps (Resolved ~1955) Murmur, cardiac (Acute) Rosacea (Chronic ~2012) Seasonal allergies (Chronic ~1999) Spinal stenosis (Chronic ~1989) Surgical procedure planned (Resolved ~2009) Tinnitus (Chronic ~2007) Ulcerative colitis (Chronic ~1976) Urinary incontinence (Chronic ~2007) Surgical History (Last Updated 09/28/19 @ 13:23 by Maggi Carpenter, RN) Anesthesia (Inactive) History of hip replacement (~2002) History of hip replacement (~2002) History of lumbar surgery (Acute ~2009) Status post arthroscopy (~1987) Status post hysterectomy (~1993) Status post rotator cuff repair (~2006) Status post surgical manipulation of ankle joint (Resolved ~2001) Status post surgical manipulation of ankle joint (Resolved ~2009) Status post tonsillectomy and adenoidectomy (~1966) Status post tubal ligation (~1983) Occupational Therapy Inpatient Evaluation/Re-Eval M1 PT/OT-IP Prior Functional Status Start: 10/08/19 09:02 Freq: NEEDED Status: Active Protocol: Document 10/10/19 17:04 CGR (Rec: 10/10/19 17:17 CGR [id number]) Medical Review Prior Functional Status Medical History Reviewed Yes Communication WNL Mobility and Gait Pt has been ambulating with a SPC since March 2019. Activities of Daily Living and IADL's Pt reports she needs occasional help with showering to wash her back, but is otherwise independent with ADL 's. Prior Functional Level (Other details) Pt reports her last fall occurred a year ago when she tripped in a parking lot and suffered a concussion. No falls since that time. Social History Household Members significant other Living Arrangements RV Number of Floors (Floors) One Floor Number of Stairs To Enter/Railing? At 5th wheel: one 6.5 step + three 9.5 steps to enter. Railing is on the left side going up. Once inside, she has two 9 steps to enter her bathroom and one narrow 9 step to access her bed. At her partner's condo: 17 steps to enter with unilateral rail. Details of home environment below refer to her 5th wheel where she intends to stay for the first week upon discharge. Home Environment High Toilet,Walk in Shower, Narrow Doors Home Equipment Front Wheel Walker,Straight Cane Employment Status Retired Additional Social History Comment Pt lives alone but her partner stays overnight with her at her 5th wheel. Her partner lives nearby in a condo which has 17 steps to enter. The tub /shower at the condo has a shower seat she can use. M2 OT-IP Current Condition Start: 10/10/19 17:04 Freq: Status: Active Protocol: Document 10/10/19 17:04 CGR (Rec: 10/10/19 17:17 CGR [id number]) Occupational Therapy Current Condition Current Condition Evaluation Date 10/10/19 Treatment Diagnosis R TKA Diagnosis Onset Date 10/07/19 Weight Bearing Status Weight Bearing Status Weight Bear as Tolerated M3 OT- IP Subjective and Pain Start: 10/10/19 17:04 Freq: Status: Active Protocol: Document 10/10/19 17:04 CGR (Rec: 10/10/19 17:17 CGR [id number]) OT- Subjective Occupational Therapy Visit Type Type Initial Evaluation Visit Start Time 16:10 Visit Stop Time 17:04 Total Visit Minutes 54 Occupational Therapy Visit Comments Patient Comments Ok, I guess I need to do this. OT Pain Assessment Pain When Pain Assessed At Rest Pain Present Pain Present Pain Reported Location Right Knee Intensity 8 Scale Used Numeric (1 - 10) Management Techniques Modification of Treatment,Re- positioning,Timing of Activity with Medications M4 OT- IP ADL's Start: 10/10/19 17:04 Freq: Status: Active Protocol: Document 10/10/19 17:04 CGR (Rec: 10/10/19 17:17 CGR [id number]) OT [id number] General Evaluation Self-Feeding Ability Independent Comments OT Self-Feeding Comments Pt eating dinner as OT exited. OT ADL-Grooming Comments OT Grooming Comments Not performed in this session. OT ADL-Oral Care Comments Oral Care Comments Not performed in this session. OT ADL-Dressing General Eval Lower Body Dressing Ability Minimal Assistance Areas Needing Assistance Underpants/Brief Assistive Devices Dressing Assistive Devices Asbestos Surveyor Comments OT Dressing Comments Pt doffed dirty brief and donned clean one with use of music box mechanic, verbal cues and min a . OT ADL-Toileting General Evaluation Toileting Ability Minimal Assistance Areas Needing Assistance Manage Clothing Comments OT Toileting Comments Pt needed min assist with pushing brief down and pulling up OT ADL-Bathing Comments OT Bathing Comments Not performed in this session. M5 OT- IP IADL's Start: 10/10/19 17:04 Freq: Status: Active Protocol: Document 10/10/19 17:04 CGR (Rec: 10/10/19 17:17 CGR [id number]) OT-Instrumental Activities of Daily Living Deficits IADL Deficits Identified Deficits Home Safety Awareness Awareness of Need for Assistance at Home Good Awareness Ability to Problem Solve Emergency Able to Problem Solve Situations Medication Management Medication Management No Deficits Identified Money Management Money Management No Deficits Identified Meal Preparation Meal Preparation Caregiver Provides Assist Poultry Service Technician Poultry Service Technician Caregiver Provides Assist Driving Driving Comments Pt is not able to drive at this time. M6 OT- IP Functional Cognition Start: 10/10/19 17:04 Freq: Status: Active Protocol: Document 10/10/19 17:04 CGR (Rec: 10/10/19 17:17 CGR [id number]) Cognitive Factors Limiting Selfcare Function Cognitive Ability Level of Alertness Alert Patient Orientation Name,Age,Birthday,Month,Date, Year,Day of Week,Place, Situation Attention Span Ability Capable of Focused Attention, Capable of Sustained Attention Ability to Follow Commands Able to Follow Multi-Step Commands Memory Description No Deficits Noted Safety Awareness No Deficits Noted Problem Solving Ability No deficits Noted OT- Vision and Hearing OT- Hearing Assessment OT- Hearing Assessment WFL OT- Vision Assessment Visual Acuity Glasses All The Time Visual Attentiveness WFL Occular Pursuits WFL Visual Convergence WFL Visual Yadav WFL Diplopia Absent Visual Spacial Neglect Not Applicable M7 OT- IP Mobility and Balance Start: 10/10/19 17:04 Freq: Status: Active Protocol: Document 10/10/19 17:04 CGR (Rec: 10/10/19 17:17 CGR [id number]) OT- Bed Mobility Assessment Supine to Sit Supine to Sit Assist Moderate Assistance,1 Person Assistance,Head of Bed Elevated,Bedrails Sit to Supine Sit to Supine Assist Moderate Assistance,1 Person Assistance,Head of Bed Elevated,Bedrails Scooting Scooting to Edge of Bed Moderate Assistance,1 Person Assistance,Bedrails Scooting Up and Down in Bed Contact Guard Assistance, Bedrails OT-Transfer Assessment Sit to and From Stand Sit to and from Stand Minimal Assistance Transfers Transfer Ability Minimal Assistance Technique Transfer Destination Bed,Toilet Transfer Technique Stand Step Pivot Devices Transfer Assistive Devices Gait Belt,Front Wheeled Walker OT- Gait Assessment Gait Gait Assistance Required: Contact Guard Assist Assistive Devices Assistive Device Gait Belt,Front Wheeled Walker Comments Gait Ability Comments Mobility to the bathroom and return to bed. OT- Balance Assessment Sitting Balance and Reactions Static Sitting Balance Ability Good Dynamic Sitting Balance Ability Fair M8 OT- IP Objective Assessments Start: 10/10/19 17:04 Freq: Status: Active Protocol: Document 10/10/19 17:04 CGR (Rec: 10/10/19 17:17 CGR [id number]) OT Gross Range of Motion Upper Extremity Range of Motion Assessment Within Functional Limits OT Strength Comments Strength Comments Pt grossly 3+/5 to 4-/5. Poor strength for use of a walker. OT- Coordination Assessment Upper Extremity Finger to Nose Test Within Functional Limits Finger Tapping Test Within Functional Limits OT-Muscle Tone Assessment Muscle Tone WNL Yes OT Sensation Assessment Edema Edema Absent M9 OT- IP Assessment and Plan Start: 10/10/19 17:04 Freq: Status: Active Protocol: Document 10/10/19 17:04 CGR (Rec: 10/10/19 17:17 CGR [id number]) OT Summary Assessment and Plan Potential Rehabilitation Potential Good Analytic Complexity at Evaluation Low Summary OT Impairments Pain,Strength,Functional Mobility,Grooming,Dressing, Toileting,Bathing,Toilet Transfers,Shower Transfers Progress Towards Goals Slow Progress due to Pain Assessment Summary Pt presents as a low complexity evaluation. Pt is s /p elective R TKA and pain is limiting her ability to participate in ADLs and functional mobility. At this time, recommendation is to discharge to SNF. Pt would not be able to care for herself without assist at home. Her sig. other is willing to assist as he is able but unlikely to be with her 20/05. Pt also has steps that she is unable to climb at this time per P.T. Pt will benefit from continued OT services and discharge to SNF. Goals Grooming Goal Independent Dressing Goal Independent Toileting Goal Independent Bathing Goal Independent Toilet Transfer Goal Independent Shower Transfer Goal Independent Frequency of Treatment Frequency Of Treatment Once a Day Treatment Plan OT Treatment Plan ADL Training,Functional Mobility,Patient/Family Education,Discharge Planning Other Treatment Recommendations and Next ADLs standing, shower Treatment Focus Discharge Recommendations OT Discharge Recommendations SNF Rehab Home Equipment Needs TBD
[2019-10-10 17:29] VITALS: BP 138/80; PULSE 101; RESP 18; TEMP 36.9; O2SAT 94
[2019-10-10 20:12] VITALS: BP 127/72; PULSE 112; RESP 17; TEMP 37.1; O2SAT 95
[2019-10-10] MEDS: ESTRADIOL 1 MG TABLET PO (20:22)
[2019-10-10] MEDS: METHOCARBAMOL 500 MG TABLET PO (20:23)
[2019-10-10 23:30] VITALS: BP 117/69; PULSE 103; RESP 16; TEMP 37.5; O2SAT 93
[2019-10-11] MEDS: HYDROMORPHONE 2 MG TABLET PO ×4 (00:19→14:14)
[2019-10-11 03:00] VITALS: BP 122/74; PULSE 106; RESP 16; TEMP 36.8; O2SAT 94
[2019-10-11] MEDS: LEVOTHYROXINE 137 MCG TABLET PO (06:14)
[2019-10-11] MEDS: SENNOSIDES 8.6 MG TABLET PO (08:39)
[2019-10-11] MEDS: ENOXAPARIN 40 MG/0.4 ML SYRINGE SUBCUT (08:39)
[2019-10-11] MEDS: NORTRIPTYLINE 10 MG CAPSULE PO ×2 (08:39→22:09)
[2019-10-11] MEDS: sulfaSALAzine 500 MG TABLET 1500 MG PO ×2 (08:44→22:08)
[2019-10-11 08:45] VITALS: BP 120/73; PULSE 109; RESP 16; TEMP 37.1; O2SAT 94
--- NOTE | 2019-10-11 09:25 | PM.PN.1 ---
Subjective Subjective Date Patient Seen: 10/11/19 Time Patient Seen: 09:25 Exam Vital Signs (past 8 hours): - 10/11/19 03:00 10/11/19 08:45 Temperature 98.3 F 98.7 F Pulse Rate 106 H 109 H Respiratory Rate 16 16 Blood Pressure 122/74 120/73 Pulse Oximetry 94 94 Oxygen Delivery Method Room Air Oxygen Flow Rate 0 Narrative Exam Narrative: sitting comfortably in chair, in no apparent distress. A&Ox3. Dressing CDI. Sensory function grossly intact to light touch in LE. Capillary refill <2sec in LE. Able to actively dorsiflex/plantar flex. Calves warm, soft, compressible, nttp. Objective Labs Result Diagrams: 10/09/19 10:20 Assessment & Plan Assessment & Plan narrative: Postoperative status: doing well Postoperative plan narrative: Patient progressing slowly with PT. Will continue to work with them today. Continue pain control Blood cultures - no growth, fever appears to have resolved. Encouraged use of incentive spirometer. Continue Lovenox Possible discharge to home tomorrow depending on her progress with PT. Lives in 5th wheel with limited room, partners residence available but would require ability to climb 17 steps. Will likely require SNF discharge.
--- NOTE | 2019-10-11 10:33 | PT.IPTN ---
Current Diagnoses Bilateral primary osteoarthritis of knee (10/07/19) Surgery Performed Operation Date: 10/07/19 10:45 Actual Procedures p Total Knee Arthroplasty(Right) - Fabricio Rose MD Physical Therapy Treatment Note M2 PT-IP Current Condition Start: 10/08/19 09:02 Freq: NEEDED Status: Active Protocol: Document 10/10/19 11:34 NFW (Rec: 10/10/19 13:01 NFW [email or web address]) Physical Therapy Current Condition Weight Bearing Status Weight Bearing Status Full Weight Bearing M3 PT-IP Subjective Start: 10/08/19 09:02 Freq: NEEDED Status: Active Protocol: Document 10/11/19 10:14 AW (Rec: 10/11/19 10:33 AW [id number]) Subjective Physical Therapy Visit Type Type Treatment Note Visit Start Time 09:05 Visit Stop Time 09:40 Total Visit Minutes 35 Notes Pt's partner, Tara, present throughout session Number of CLOTH BRUSHING AND SUEDING SUPERVISOR Visits 0 Physical Therapy Visit Comments Patient Comments Pt reluctantly willing to participate Therapy Pain Assessment Pain When Pain Assessed During Mobility Pain Present Pain Present Pain Reported Location Right Knee Intensity 10 Scale Used 7/10 at rest; 10/10 with weightbearing Pain Management Techniques Apply Cold,Re-positioning, Timing of Activity with Medications M4 PT-IP Mobility and Gait Start: 10/08/19 09:02 Freq: NEEDED Status: Active Protocol: Document 10/11/19 10:14 AW (Rec: 10/11/19 10:33 AW [id number]) PT-Bed Mobility Assessment Supine to Sit Supine to Sit Contact Guard Assistance Sit to Supine Sit to Supine Minimal Assistance Scooting Scooting to Edge of Bed Contact Guard Assistance PT-Transfer Assessment Sit to and From Stand Sit to and from Stand Contact Guard Assistance, Minimal Assistance Equipment Transfer Assistive Device Gait Belt,Front Wheeled Walker Orthotic/Prosthetic Devices or Brace: No Transfers Transfer Destination Bed,Wheelchair Transfer Ability Level of Assist Contact Guard Assistance,1 Person Assistance,Use of Upper Extremities Comments Mobility Comments Pt required extra time for supine to sit, but managed with CGA. Sit to stand from bed and from wheelchair were completed min A x 1 with no cues required. Pt used gait belt to lift right leg into bed, requiring CGA only. Pt able to reposition herself in the bed independently. Gait Assessment Gait Gait Assistance Required: Contact Guard Assist,1 Person Assist Distance (Feet) 45 Able to Maintain Weight Bearing Status No During Gait Assistive Devices Assistive Device Gait Belt,Front Wheeled Walker Orthotic/Prosthetic Devices or Brace: No Gait Deviations General Gait Pattern Antalgic,Decreased Stride Length,Decreased Feet Clearance,Flexed Trunk,Step-to Gait Factors Limiting Gait Function Factors Limiting Gait Function Decreased Activity Tolerance, Decreased Strength,Limited Range of Motion,Pain,Poor Balance Comments Gait Comments Pt ambulated slowly and had decreased tolerance today. She continued to avoid weightbearing on the RLE in spite of cues. Stair Climbing Assessment Evaluation Level of Assist On Stairs Maximal Assistance,1 Person Assistance Devices Stair Climbing Assistive Devices Left Railing,Right Railing Comments Stair Climbing Comments Stairclimbing attempted but pt unable to bear weight on RLE long enough to lift the LLE to the first 6 step, even with BUE weightbearing on railings. M5 PT-IP Objective Assessments Start: 10/08/19 09:02 Freq: NEEDED Status: Active Protocol: Document 10/08/19 11:42 AW (Rec: 10/08/19 12:08 AW [email or web address]) Orientation Orientation/Cognition Level of Alertness Alert Orientation Name,Day of Week,Place, Situation Language Function Ability No Deficits Noted Safety Awareness Understands Safety Issues Memory Description No Deficits Noted Comments Pt appears somewhat foggy and is aware of same, but she was alert and oriented x 4. Gross Range of Motion Upper Extremity ROM Assessment Within Functional Limits Lower Extremity ROM Assessment Right Impaired Strength Upper Extremity Strength Assessment Within Functional Limits Lower Extremity Strength Assessment Right Impaired Coordination Assessment Gross Coordination Gross Coordination WNL Sensation Assessment Sensation Gross Sensation WNL M6 PT-IP Treatment Start: 10/08/19 09:02 Freq: NEEDED Status: Active Protocol: Document 10/11/19 10:14 AW (Rec: 10/11/19 10:33 AW [id number]) Physical Therapy Treatment Education Education Provided Precautions,Weight Bearing Status,Safety Other Treatments Other Treatment Performed With use of FWW, pt performed single-leg stance on RLE but tolerated no more than 2 seconds. Pt stood with walker and shifted weight bilaterally 2 minutes and stood with equal weightbearing 1 minute. M7 PT-IP Assessment and Plan Start: 10/08/19 09:02 Freq: NEEDED Status: Active Protocol: Document 10/11/19 10:14 AW (Rec: 10/11/19 10:33 AW [id number]) PT Summary Assessment and Plan Potential Rehabilitation Potential Good Status of Condition at Evaluation Stable Summary Impairments Pain,Strength,Balance,Bed Mobility,Transfers,Gait, Activity Tolerance Progress Towards Goals Slow Progress due to Pain Assessment Summary Progress continues to be limited by pain. Focused treatment on awareness of pain with emphasis on mindfulness- based stress reduction to address pt presentation of anxiety regarding mobility. Goals Bed Mobility Goal Standby Assistance Transfer Goal Standby Assistance,Front Wheeled Walker Gait Goal Standby Assistance,Front Wheel Walker Gait Distance 150 Other Goals up/down 9.5 steps x 3 with left rail ascending SBA OR up/down 17 standard height steps with unilateral rail SBA Days to Meet Goals 10 Frequency of Treatment Frequency Of Treatment Twice a Day Treatment Plan Physical Therapy Treatment Plan Bed Mobility Training,Transfer Training,Gait Training, Therapeutic Exercise,Balance Retraining,Post Op Education, Discharge Planning,Hot or Cold Pack,Neuromuscular Re-ed, Coordination Retraining,Manual Therapy Recommendations To Nursing Amount of Assist Needed 1 Person Assist Discharge Recommendations PT Discharge Recommendations SNF Rehab Other Discharge Recommendations With pt unable to navigate stairs at all, SNF will likely be required.
--- NOTE | 2019-10-11 10:58 | PC.NURSE ---
Pt is A&Ox3, dressing to r.knee is cdi with aquacel. She has 1+ edema to r. leg. One person assist to get up to chair and commode. Pt is working with physical therapy and [facility].
[2019-10-11] MEDS: SODIUM CHLORIDE 0.9% FLUSH 10 ML IV ×2 (11:08→22:09)
[2019-10-11 11:22] VITALS: BP 120/71; PULSE 96; RESP 16; TEMP 36.6; O2SAT 96
--- NOTE | 2019-10-11 15:42 | PT.IPTN ---
Current Diagnoses Bilateral primary osteoarthritis of knee (10/07/19) Surgery Performed Operation Date: 10/07/19 10:45 Actual Procedures p Total Knee Arthroplasty(Right) - Fabricio Rose MD Physical Therapy Treatment Note M2 PT-IP Current Condition Start: 10/08/19 09:02 Freq: NEEDED Status: Active Protocol: Document 10/10/19 11:34 NFW (Rec: 10/10/19 13:01 NFW [email or web address]) Physical Therapy Current Condition Weight Bearing Status Weight Bearing Status Full Weight Bearing M3 PT-IP Subjective Start: 10/08/19 09:02 Freq: NEEDED Status: Active Protocol: Document 10/11/19 15:42 CLB (Rec: 10/11/19 17:02 CLB [email or web address]) Subjective Physical Therapy Visit Type Type Treatment Note Visit Start Time 15:42 Visit Stop Time 16:30 Total Visit Minutes 48 Notes Co-tx with OT CJ Number of NATURAL GAS TECHNICIAN Visits 1 Physical Therapy Visit Comments Patient Comments Pt reluctantly willing to participate, pt reports feeling a slipping in her knee . Therapy Pain Assessment Pain When Pain Assessed During Mobility Pain Present Pain Present Pain Reported Location Right Knee Intensity 9 Pain Management Techniques Apply Cold,Re-positioning, Timing of Activity with Medications M4 PT-IP Mobility and Gait Start: 10/08/19 09:02 Freq: NEEDED Status: Active Protocol: Document 10/11/19 15:42 CLB (Rec: 10/11/19 17:02 CLB [email or web address]) PT-Bed Mobility Assessment Supine to Sit Supine to Sit Contact Guard Assistance, Minimal Assistance,1 Person Assistance,Head of Bed Elevated,Bedrails Scooting Scooting to Edge of Bed Minimal Assistance PT-Transfer Assessment Sit to and From Stand Sit to and from Stand Contact Guard Assistance,1 Person Assistance,Use of Upper Extremities Equipment Transfer Assistive Device Gait Belt,Front Wheeled Walker Orthotic/Prosthetic Devices or Brace: No Transfers Transfer Destination Bed,Wheelchair Transfer Ability Level of Assist Contact Guard Assistance,1 Person Assistance,Use of Upper Extremities Comments Mobility Comments Pt performed all ther ex in bed before getting up. Pt required Min A of LE while scooting to EOB, pt had HOB elevated and relied heavily on bed rails for supine-sit. Pt required CGA for sit<>stand and cues for hand placement for safety. Pt left at sink with OT to brush teeth. Gait Assessment Gait Gait Assistance Required: Standby Assistance,Contact Guard Assist,1 Person Assist Distance (Feet) 200 Able to Maintain Weight Bearing Status No During Gait Assistive Devices Assistive Device Gait Belt,Front Wheeled Walker Orthotic/Prosthetic Devices or Brace: No Gait Deviations General Gait Pattern Antalgic,Decreased Stride Length,Decreased Feet Clearance,Flexed Trunk,Step-to Gait Factors Limiting Gait Function Factors Limiting Gait Function Decreased Activity Tolerance, Decreased Strength,Limited Range of Motion,Pain,Poor Balance Comments Gait Comments Pt ambulates slowly but was able to increase gait distance to ~200ft in eldridge with step to gait pattern. Pt is bearing increased weight in RLE and reports pain 9/10 with activity. M5 PT-IP Objective Assessments Start: 10/08/19 09:02 Freq: NEEDED Status: Active Protocol: Document 10/08/19 11:42 AW (Rec: 10/08/19 12:08 AW [id number]) Orientation Orientation/Cognition Level of Alertness Alert Orientation Name,Day of Week,Place, Situation Language Function Ability No Deficits Noted Safety Awareness Understands Safety Issues Memory Description No Deficits Noted Comments Pt appears somewhat foggy and is aware of same, but she was alert and oriented x 4. Gross Range of Motion Upper Extremity ROM Assessment Within Functional Limits Lower Extremity ROM Assessment Right Impaired Strength Upper Extremity Strength Assessment Within Functional Limits Lower Extremity Strength Assessment Right Impaired Coordination Assessment Gross Coordination Gross Coordination WNL Sensation Assessment Sensation Gross Sensation WNL M6 PT-IP Treatment Start: 10/08/19 09:02 Freq: NEEDED Status: Active Protocol: Document 10/11/19 15:42 CLB (Rec: 10/11/19 17:02 CLB [email or web address]) Physical Therapy Treatment Exercises Exercises Ankle Pumps,Quad Sets,Heel Slides Education Education Provided Precautions,Weight Bearing Status,Safety M7 PT-IP Assessment and Plan Start: 10/08/19 09:02 Freq: NEEDED Status: Active Protocol: Document 10/11/19 15:42 CLB (Rec: 10/11/19 17:02 CLB [email or web address]) PT Summary Assessment and Plan Summary Impairments Pain,Strength,Balance,Bed Mobility,Transfers,Gait, Activity Tolerance Progress Towards Goals Slow Progress due to Pain Assessment Summary Pt improving with gait quality and distance. Pt ambulated in eldridge ~200ft w/FWW/SBA. Pt continues to report high pain during activity and requires extended use of bed rails with HOB elevated to get up to full sit. Goals Bed Mobility Goal Standby Assistance Transfer Goal Standby Assistance,Front Wheeled Walker Gait Goal Standby Assistance,Front Wheel Walker Gait Distance 150 Other Goals up/down 9.5 steps x 3 with left rail ascending SBA OR up/down 17 standard height steps with unilateral rail SBA Days to Meet Goals 10 Frequency of Treatment Frequency Of Treatment Twice a Day Treatment Plan Physical Therapy Treatment Plan Bed Mobility Training,Transfer Training,Gait Training, Therapeutic Exercise,Balance Retraining,Post Op Education, Discharge Planning,Hot or Cold Pack,Neuromuscular Re-ed, Coordination Retraining,Manual Therapy Recommendations To Nursing Amount of Assist Needed 1 Person Assist Discharge Recommendations PT Discharge Recommendations SNF Rehab Other Discharge Recommendations With pt unable to navigate stairs at all, SNF will likely be required.
[2019-10-11] MEDS: ACETAMINOPHEN 325 MG TABLET 650 MG PO (15:43)
[2019-10-11 16:00] VITALS: BP 129/73; PULSE 97; RESP 18; TEMP 37.3; O2SAT 93
--- NOTE | 2019-10-11 16:31 | CM.DPC ---
DCP: continued: Case discussed with rounding ortho surgeon Dr. Saldaña today. His progress note as well as the OT and PT notes are faxed now to admissions/[facility]: Tamara and Kristal (on for admissions Saturday). Did not receive the expected vm from Tamara...please see the detailed notes from yesterday re the d/c planning issues in this case. OT CJ was here again today and planning to see pt again. DCP team to continue to follow: d/c is anticipated tomorrow, either to the home setting or the the [facility] snf as per above.
--- NOTE | 2019-10-11 16:32 | OT.IP.TRT ---
Current Diagnoses Bilateral primary osteoarthritis of knee (10/07/19) Surgery Performed Operation Date: 10/07/19 10:45 Actual Procedures p Total Knee Arthroplasty(Right) - Fabricio Rose MD Occupational Therapy Treatment Note M2 OT-IP Current Condition Start: 10/10/19 17:04 Freq: Status: Active Protocol: Document 10/10/19 17:04 CGR (Rec: 10/10/19 17:17 CGR [id number]) Occupational Therapy Current Condition Current Condition Evaluation Date 10/10/19 Treatment Diagnosis R TKA Diagnosis Onset Date 10/07/19 Weight Bearing Status Weight Bearing Status Weight Bear as Tolerated M3 OT- IP Subjective and Pain Start: 10/10/19 17:04 Freq: Status: Active Protocol: Document 10/11/19 16:33 CGR (Rec: 10/11/19 16:52 CGR [id number]) OT- Subjective Occupational Therapy Visit Type Type Progress Note Visit Start Time 15:52 Visit Stop Time 16:32 Total Visit Minutes 40 Notes Co-treat with P.T. Occupational Therapy Visit Comments Patient Comments You guys always manage to make me do all of this stuff. OT Pain Assessment Pain When Pain Assessed During Mobility Pain Present Pain Present Pain Reported Location Right Knee Intensity 9 Scale Used Numeric (1 - 10) Management Techniques Modification of Treatment M4 OT- IP ADL's Start: 10/10/19 17:04 Freq: Status: Active Protocol: Document 10/11/19 16:33 CGR (Rec: 10/11/19 16:52 CGR [id number]) OT [id number] Comments OT Self-Feeding Comments not meal time OT ADL-Grooming General Evaluation Grooming Ability Standby Assistance Areas Needing Assistance Retrieving/Set-up of Grooming Items Comments OT Grooming Comments Pt stood at sink for washing hands after pericare. OT ADL-Oral Care Comments Oral Care Comments Initially wanting to brush teeth but declined to brush teeth prior to snack and dinner. OT ADL-Dressing General Eval Lower Body Dressing Ability Moderate Assistance Areas Needing Assistance Socks Assistive Devices Dressing Assistive Devices Procedures Tech,Sock Aid Comments OT Dressing Comments Pt needed min to mod a for using the sock aide to don socks to both feet. OT ADL-Toileting General Evaluation Toileting Ability Contact Guard Assistance Devices Toileting Assistive Devices Grab Bars Comments OT Toileting Comments Pt uses GB significantly for sit to stand and stand to sit. CGA for brief and pericare. OT ADL-Bathing Comments OT Bathing Comments not performed on this date. M5 OT- IP IADL's Start: 10/10/19 17:04 Freq: Status: Active Protocol: Document 10/10/19 17:04 CGR (Rec: 10/10/19 17:17 CGR [id number]) OT-Instrumental Activities of Daily Living Deficits IADL Deficits Identified Deficits Home Safety Awareness Awareness of Need for Assistance at Home Good Awareness Ability to Problem Solve Emergency Able to Problem Solve Situations Medication Management Medication Management No Deficits Identified Money Management Money Management No Deficits Identified Meal Preparation Meal Preparation Caregiver Provides Assist Car Unloader Helper Car Unloader Helper Caregiver Provides Assist Driving Driving Comments Pt is not able to drive at this time. M6 OT- IP Functional Cognition Start: 10/10/19 17:04 Freq: Status: Active Protocol: Document 10/11/19 16:33 CGR (Rec: 10/11/19 16:52 CGR [id number]) Cognitive Factors Limiting Selfcare Function Cognitive Ability Level of Alertness Alert Patient Orientation Name,Age,Birthday,Month,Date, Year,Day of Week,Place, Situation Attention Span Ability Capable of Focused Attention, Capable of Sustained Attention Ability to Follow Commands Able to Follow Multi-Step Commands Memory Description No Deficits Noted Safety Awareness No Deficits Noted Problem Solving Ability No deficits Noted OT- Vision and Hearing OT- Hearing Assessment OT- Hearing Assessment WFL OT- Vision Assessment Visual Acuity Glasses All The Time Visual Attentiveness WFL Occular Pursuits WFL Visual Convergence WFL Visual Yadav WFL Diplopia Absent Visual Spacial Neglect Not Applicable M7 OT- IP Mobility and Balance Start: 10/10/19 17:04 Freq: Status: Active Protocol: Document 10/11/19 16:33 CGR (Rec: 10/11/19 16:52 CGR [id number]) OT- Bed Mobility Assessment Supine to Sit Supine to Sit Assist Minimal Assistance,1 Person Assistance,Head of Bed Elevated,Bedrails Scooting Scooting to Edge of Bed Minimal Assistance,1 Person Assistance,Head of Bed Elevated,Bedrails OT-Transfer Assessment Sit to and From Stand Sit to and from Stand Contact Guard Assistance,1 Person Assistance Transfers Transfer Ability Contact Guard Assistance,1 Person Assistance Technique Transfer Destination Bed,Chair,Toilet Transfer Technique Stand Step Pivot Devices Transfer Assistive Devices Gait Belt,Front Wheeled Walker OT- Gait Assessment Gait Gait Assistance Required: Standby Assistance Distance (Feet) 200 Able to Maintain Weight Bearing Status Yes During Gait Assistive Devices Assistive Device Gait Belt,Front Wheeled Walker Comments Gait Ability Comments for mobility in the room, in the hallway and return to room . OT- Balance Assessment Sitting Balance and Reactions Static Sitting Balance Ability Good Dynamic Sitting Balance Ability Fair M8 OT- IP Objective Assessments Start: 10/10/19 17:04 Freq: Status: Active Protocol: Document 10/10/19 17:04 CGR (Rec: 10/10/19 17:17 CGR [id number]) OT Gross Range of Motion Upper Extremity Range of Motion Assessment Within Functional Limits OT Strength Comments Strength Comments Pt grossly 3+/5 to 4-/5. Poor strength for use of a walker. OT- Coordination Assessment Upper Extremity Finger to Nose Test Within Functional Limits Finger Tapping Test Within Functional Limits OT-Muscle Tone Assessment Muscle Tone WNL Yes OT Sensation Assessment Edema Edema Absent M9 OT- IP Assessment and Plan Start: 10/10/19 17:04 Freq: Status: Active Protocol: Document 10/11/19 16:33 CGR (Rec: 10/11/19 16:52 CGR [id number]) OT Summary Assessment and Plan Potential Rehabilitation Potential Good Analytic Complexity at Evaluation Low Summary OT Impairments Pain,Strength,Functional Mobility,Grooming,Dressing, Toileting,Bathing,Toilet Transfers,Shower Transfers Progress Towards Goals Slow Progress due to Pain Assessment Summary Pt with improvement to mobility and ADLs on this date . Pt still reporting 9/10 pain with activity. Pt was able to ambulate into the [place] on this date and performed toileting prior to the walking . Pt will continue to benefit from OT services. Recommend d/ c to SNF as pt is not able to care for herself at home and was unable to do stairs. Goals Grooming Goal Independent Dressing Goal Independent Toileting Goal Independent Bathing Goal Independent Toilet Transfer Goal Independent Shower Transfer Goal Independent Frequency of Treatment Frequency Of Treatment Once a Day Treatment Plan OT Treatment Plan ADL Training,Functional Mobility,Patient/Family Education,Discharge Planning Other Treatment Recommendations and Next ADLs standing, shower Treatment Focus Discharge Recommendations OT Discharge Recommendations SNF Rehab Home Equipment Needs TBD
[2019-10-11] MEDS: HYDROCODONE/ACET 5/325 TABLET 2 TAB PO ×2 (16:52→22:09)
[2019-10-11 21:00] VITALS: BP 114/66; PULSE 86; RESP 17; TEMP 36.4
[2019-10-11] MEDS: hydrOXYzine pamoate 25 MG CAPSULE PO (22:09)
[2019-10-11] MEDS: METHOCARBAMOL 500 MG TABLET PO (22:09)
[2019-10-11] MEDS: ESTRADIOL 1 MG TABLET PO (22:09)
[2019-10-11 23:45] VITALS: BP 120/71; PULSE 91; RESP 16; TEMP 36.7; O2SAT 95
[2019-10-12] MEDS: HYDROCODONE/ACET 5/325 TABLET 2 TAB PO ×3 (02:05→11:22)
[2019-10-12 05:34] VITALS: BP 119/67; PULSE 94; RESP 15; TEMP 36.7; O2SAT 94
[2019-10-12] MEDS: BISACODYL 10 MG SUPP PR (05:58)
[2019-10-12] MEDS: LEVOTHYROXINE 137 MCG TABLET PO (05:58)
[2019-10-12] MEDS: hydrOXYzine pamoate 25 MG CAPSULE PO (07:09)
[2019-10-12 07:45] VITALS: BP 138/78; PULSE 99; RESP 18; TEMP 37.3; O2SAT 97
[2019-10-12] MEDS: NORTRIPTYLINE 10 MG CAPSULE PO (09:10)
[2019-10-12] MEDS: ENOXAPARIN 40 MG/0.4 ML SYRINGE SUBCUT (09:10)
[2019-10-12] MEDS: SODIUM CHLORIDE 0.9% FLUSH 10 ML IV (09:11)
[2019-10-12] MEDS: SENNOSIDES 8.6 MG TABLET PO (09:11)
[2019-10-12] MEDS: sulfaSALAzine 500 MG TABLET 1500 MG PO (09:11)
--- NOTE | 2019-10-12 09:42 | P.DS_ITS ---
History of Present Illness History of Present Illness Date Patient Seen: 10/12/19 Time Patient Seen: 09:42 Chief complaint: Right Total Kneee Arthroplasty 28034 Narrative: Patient's pain is been moderate to severe. Denies fever chills. No nausea vomiting. Patient has been slow to mobilize secondary to concern of pain with ambulating on the surgical side. She does have steps into her house and has not yet been able to practice any steps. She doesn't have assistance at home to help her either. Discharge Providers Provider Date of admission: 10/07/19 08:22 Discharge Date: 10/12/19 Primary care physician: Nilda Salmeron DO Consults: 10/07/19 17:55 Consult to Discharge Planning Routine Comment: Consult to Physical Therapy Evaluate & Treat Comment: Physician Instructions: postop TKA protocol Consult to Respiratory Therapy Evaluate & Treat Comment: Physician Instructions: Evaluate and treat 10/10/19 11:34 Consult to Occupational Therapy Evaluate & Treat Comment: Physician Instructions: Evaluate and treat Discharge provider: Cristobal Mckinney PA-C Summary Hospital Course Discharge Diagnosis: Status post right total knee arthroplasty secondary to sev ere right knee osteoarthritis Hospital Course: PatientProcedure: Right total knee arthroplasty Same procedure as scheduled: Yes Indications: The patient presents today for total knee arthroplasty after failure of conservative treatment. The nature of the procedure including the risks and benefits, alternatives, postoperative course and expected outcome were discussed and all questions answered. Consent was obtained. Operative site confirmed and marked. Surgeon: Fabricio Rose Bark Peeler: Cristobal Mckinney Anesthesia Type: General, Peripheral nerve block and Local Operative Notes Findings: The patient had severe osteoarthritis with a relatively mild valgus deformity with a significant flexion contracture. Her preoperative range of motion was approximately 30-95 degrees. A +4 cut was made initially on the femoral component. 10 mm was initially taken from the less affected medial side. The knee was still somewhat tight in both flexion and extension. Another 2 mm was then cut from the tibia which then nicely balanced the knee in flexion and extension and allowed for full extension. She was left slightly looser than normal medial laterally to ensure that she regains her motion. Closure Type: primary Specimen(s): none sent Patient admitted for right total knee arthroplasty. Patient consented to the same. Patient taken to the operating room underwent right total knee arthroplasty. Patient back in her room recovering well and is in stable condition. Patient has had difficulty mobilizing with physical therapy secondary to pain. She does still live alone and has steps into her house. Patient has been unable to perform steps. Physical therapy is recommended nursing home facility placement. Status at Discharge Cognitive/behavioral status at discharge: at baseline, oriented Functional status at discharge: uses cane/walker Overall status at discharge: patient is progressing back to baseline Time Spent with Patient Time spent: Less than 30 minutes Exam Vital Signs (past 8 hours): - 10/12/19 05:34 10/12/19 07:45 Temperature 98.0 F 99.1 F Pulse Rate 94 H 99 H Respiratory Rate 15 18 Blood Pressure 119/67 138/78 Pulse Oximetry 94 97 Oxygen Delivery Method Room Air Oxygen Flow Rate 0 Narrative Exam Narrative: 69-year-old female resting comfortably in bed in no apparent distress. Right knee dressing is clean, dry and intact. Motor functions intact distal right lower extremity. Sensation grossly intact to light touch. Right lower leg is warm and dry. Objective Labs Result Diagrams: 10/09/19 10:20 Discharge Plan Discharge Plan Patient Disposition: SNF Under care of provider: Dr. Rose Consult as needed: Dental, Hearing, Mental health, Podiatry and Vision Discharge comment: DC to SNF today in stable condition Discharge orders & Medications Prescriptions: New acetaminophen 325 mg Tablet 650 mg PO Q4HR PRN (Reason: Fever/Mild Pain (1-3)) Qty: 60 RF: 0 polyethylene glycol 3350 17 gram Powder In Packet 17 gm PO DAILY Qty: 20 RF: 0 hydrocodone-acetaminophen 5-325 mg Tablet 2 tab PO Q4HR PRN (Reason: Pain, Severe (7-10)) Qty: 40 RF: 0 hydromorphone 2 mg Tablet 2 mg PO Q3H PRN (Reason: Pain, Severe (7-10)) Qty: 20 RF: 0 hydroxyzine pamoate 25 mg Capsule 25 mg PO Q6HR PRN (Reason: Nausea) Qty: 30 RF: 0 enoxaparin [Lovenox] 40 mg/0.4 mL Syringe 40 mg subcut DAILY Qty: 7 RF: 0 Continued loratadine [Claritin] 10 mg Tablet 10 mg PO DAILY PRN (Reason: allergies) Qty: 0 RF: 0 acyclovir 400 mg tablet 400 mg PO TID PRN (Reason: HSV) Qty: 30 RF: 3 nortriptyline 10 mg capsule 10 mg PO BID Qty: 180 RF: 3 levothyroxine 137 mcg capsule 137 mcg PO DAILY Qty: 90 RF: 3 methocarbamol 500 mg tablet 500 mg PO BEDTIME RF: 0 sulfasalazine [Azulfidine] 500 mg tablet 1,500 mg PO BID RF: 0 doxycycline hyclate 50 mg capsule 100 mg PO DAILY PRN (Reason: Rosacea breakout) RF: 0 estradiol 1 mg tablet 1 mg PO BEDTIME RF: 0 metronidazole 0.75 % cream 1 applictn Topical QAM RF: 0 Discontinued hydrocodone-acetaminophen 5-325 mg tablet 2 tab PO BID PRN (Reason: Pain) RF: 0 Follow up/Referrals: Fabricio Rose MD [Family Provider] - (1 week post op) Nilda Salmeron DO [Primary Care Provider] - Discharge Health Status Multidrug resistant organism: No MDRO Diet/Activity/Treatments Diet: Diet as Tolerated Liquid consistency: Normal/Thin Activity: WBAT Cold/Heat Therapy: ice as needed Skin/Wound/Dressing Care Report to your healthcare provider any signs of infection, such as:: chills, fever, increased pain, unusual drainage and unusual redness Dressing: keep clean and dry [facility] Reason for rehabilitation: Post-operative therapy Rehab type: Physical therapy Discharge Data Primary Care Provider: Nilda Salmeron
--- NOTE | 2019-10-12 10:35 | PC.NURSE ---
Addendum entered by Irina Cartagena R.N. 10/12/19 15:29: Left at approx 1440 Addendum entered by Irina Cartagena R.N. 10/12/19 15:26: Transfer to SNF: IV dc'd intact. Collected all belongings and sent with patient and sig. other. Medicated with PO Dilaudid before she left since she was at the max for 24 hr Tylenol intake. Wheeled out to private vehicle by nursing staff. Given transfer packet, including scripts for Vicodin and Dilaudid, and instructed to provide to staff at [facility] when she gets there. Report given to Bia at [facility]. Original Note: Shift summary: Awake and alert, oriented X3. Dressing to R knee C/D/I. CMS+, PP+, cap refill <2 sec. She does have 2-3+ pitting edema in RLE. Reports pain fairly well-managed (/) with Vicodin and aware next dose available at approx 1100. Lungs CTA, HRR. BT+, abd soft. She had an extra large BM this morning, first BM post-op. Assisted back to bed after breakfast per patient request. Able to make needs known and calls appropriately. Light and belongings within reach, bed alarm on.
--- NOTE | 2019-10-12 10:57 | CM.DPC ---
DCP Cont: Was able to get in contact with Kristal in admissions at [facility]. Confirmed that they can accept patient today. Went ahead and updated Cristobal bass. He completed discharge orders. Faxed over PASSR, signed orders, to Kristal at [facility]. Included med list signed, and prescriptions. Faxed history and physical as well. Updated patient. She was able to contact her partner, Tara. He will be here at approximately 12:30 to pick her up. P: Patient is to be discharged to nursing home, [facility], today. Chloé Wilkinson RN/Outsole Splicer
[2019-10-12] MEDS: HYDROMORPHONE 2 MG TABLET PO (14:27)
== END 2019-10-12 14:40 | DRG 470 ==
LOC: AC 10-12 09:42 → OR 10-12 15:54 → AC 10-12 15:59 → OR 10-12 16:03
PROVIDERS: Physician Assistant Surgical; Admitting Provider Orthopaedic Surgery; Family Provider Orthopaedic Surgery; PCP Family Medicine; Visit Provider Orthopaedic Surgery
PROC: 0SRC0JZ Replacement of Right Knee Joint with Synthetic Substitute, Open Approach (ICD-10-PCS; CPT 27447; principal; 2019-10-07 10:45)
DX: M17.11 Unilateral primary osteoarthritis, right knee (principal); E07.9 Disorder of thyroid, unspecified; I10 Essential (primary) hypertension; G89.29 Other chronic pain; G89.18 Other acute postprocedural pain; R50.9 Fever, unspecified
CPT/HCPCS: 36415; 64447; 73560; 85014; 85018; 85025; 87040; 97110; 97116; 97162; 97165; 97530; 97535; C1776; G0378; C9290; J0690; J1100; J1170; J1650; J2060; J2250; J2310; J2405; J2704; J3010; J3410

== ENCOUNTER → 2020-02-10 14:37 | Outpatient (CLI) | payer MEDICARE, OTHER, SELFPAY ==
[2019-10-07 17:56] VITALS: BMI 28.5
[2020-02-10 16:43] LABS: Add Manual Diff / Slide Review NO; Basophils Absolute Auto 0 /uL (0-100); Basophils Percent Auto 0.9 % (0-2); Eosinophils Absolute Auto 0 /uL (0-450); Eosinophils Percent Auto 0.6 % (2-4); Hematocrit 42.6 % (36-46); Hemoglobin 13.8 g/dL (12.0-16.0); Lymphocytes Absolute Auto 2200 /uL (1100-4500); Lymphocytes Percent Auto 45.3 % (25-40); Mean Corpuscular HGB Conc 32.5 % (30-36); Mean Corpuscular Hemoglobin 31.6 PG (26-34); Mean Corpuscular Volume 97.4 fL (80-100); Monocytes Absolute Auto 400 /uL (0-900); Monocytes Percent Auto 8.2 % (3-14); Neutrophils Absolute Auto 2200 /uL (1500-7000); Platelet Count 290 X10^3/uL (150-400); Red Blood Cell Count 4.38 X10^6/uL (4.0-5.2); Red Cell Distribution Width 14.3 % (11.6-14.8); White Blood Cell Count 4.8 X10^3/uL (4.5-11.0)
[2020-02-10 17:00] LABS: Alanine Aminotransferase 14 IU/L (<35); Albumin 4.4 g/dL (3.5-5.0); Albumin Globulin Ratio 1.4 (1.0-2.8); Alkaline Phosphatase 73 U/L (38-126); Aspartate Aminotransferase 32 IU/L (14-36); BUN Creatinine Ratio 29.8 (6-22); Bilirubin Total 0.3 mg/dL (0.2-1.3); Blood Urea Nitrogen 17 mg/dL (7-17); Calcium 9.7 mg/dL (8.4-10.2); Carbon Dioxide 31 mmol/L (22-32); Chloride 102 mmol/L (98-107); Estimated Glomerular Filt Rate > 60.0 mL/min (>60); Globulin 3.2 g/dL (1.7-4.1); Glucose 98 mg/dL (80-110); HEMOLYSIS < 15 (0-50); Potassium 4.4 mmol/L (3.4-5.1); Sodium 137 mmol/L (137-145); Total Protein 7.6 g/dL (6.3-8.2)
[2020-02-10 17:28] LABS: TSH w/ Reflex to FT4 0.32 uIU/mL (0.47-4.68)
[2020-02-10 17:58] LABS: Free T4, Direct Thyroxine 1.57 ng/dL (0.78-2.19)
== END ==
PROVIDERS: Family Provider Orthopaedic Surgery; PCP Family Medicine; Referring Provider Family Medicine; Visit Provider Family Medicine
DX: E03.9 Hypothyroidism, unspecified (principal); I10 Essential (primary) hypertension; K51.90 Ulcerative colitis, unspecified, without complications; R25.2 Cramp and spasm
CPT/HCPCS: 36415; 80053; 84439; 84443; 85025